=== PATIENT | female | born 1965 | race Hispanic/Latino ===

== ENCOUNTER 2019-12-30 22:17 | Emergency (ER) | payer BC, SELFPAY ==
--- NOTE | ~2019-12-30 | XR_ITS ---
EXAMINATION: XR chest 2V DATE: 12/30/2019 22:49 INDICATION: Shortness of breath, cough and fever TECHNIQUE: PA and lateral views of the chest were obtained. COMPARISON: Chest radiograph dated 01/21/[address] dated 07/28/2018 FINDINGS: Mild hyperexpansion of lungs likely related to mild emphysema better appreciated on prior CT. The jeremie gs remain clear with no focal airspace opacities, pulmonary edema, pleural effusion or pneumothorax. Minimal tenting at the apex of the right hemidiaphragm which on prior CT results from a thin band of discoid atelectasis/scarring the right middle lobe which is indiscernible on the plain radiographs. T he cardiomediastinal silhouette is normal. Chronic minimal to mild anterior wedging T7-T9. Cholecyste ctomy clips in the right upper quadrant. IMPRESSION: 1. Mild emphysema with unchanged mild linear discoid atelectasis/scarring the right middle lobe. No a cute cardiopulmonary disease. Reviewed, dictated and finalized at location A. 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 Mild emphysema with unchanged mild linear discoid atelectasis/scarring the r ight middle lobe. No acute cardiopulmonary disease.
[2019-12-30 22:18] VITALS: BP 124/66; PULSE 114; RESP 16; TEMP 37.9; O2SAT 100
--- NOTE | 2019-12-30 22:32 | ED.URI ---
HPI - URI/Sore Throat General Chief Complaint: Upper Respiratory Infection Stated Complaint: headache/cough/fever Time Seen by Provider: 12/30/19 22:27 Source: patient Mode of arrival: ambulatory Limitations: no limitations History of Present Illness HPI Narrative: The pt is a 54 y/o female who presents to the ED with c/o a dry cough that began 2 days ago. The pt states that her cough is worsening and becoming more painful. Her cough was mildly alleviated with taking Robutussin. The pt reports CP, back pain, myalgia, mild SOB, and a 101F fever, but denies N/V/D, dysuria, sore throat, or rhinorrhea. MD elicited complaint: cough Onset (ago): day(s) (2) Consistency: progressively worsening Relieving factors: other (Robutussin) Associated symptoms: fever, chest pain, shortness of breath (mild) and other (back pain, myalgia) Related Data Home Medications Medication Instructions Recorded Confirmed atorvastatin 12/30/19 insulin glargine [Basaglar KwikPen unit SUBCUT 12/30/19 U-100 Insulin] insulin lispro [Admelog SoloStar unit SUBCUT 12/30/19 U-100 Insulin] Allergies Allergy/AdvReac Type Severity Reaction Status Date / Time No Known Allergies Allergy Verified 12/30/19 22:42 Review of Systems Review of Systems: Narrative: Constitutional: Positive for fever. HENT: Negative for sore throat or rhinorrhea. Respiratory: Positive for dry cough and mild shortness of breath. Cardiovascular: Postive for chest pain. Gastrointestinal: Negative for nausea, vomiting,and diarrhea. Genitourinary: Negative for dysuria. Musculoskeletal: Positive for back pain and myalgia. All systems reviewed & are unremarkable except as noted in HPI and below PMFSH Past Medical History Medical History (Updated 12/31/19 @ 00:08 by Robyn Burnett MD) Diabetes Hyperlipidemia Surgical History Surgical History (Updated 12/30/19 @ 22:43 by Amanda Feliciano) Hx of cholecystectomy Hx of tubal ligation Social History Social History (Updated 12/30/19 @ 22:43 by Amanda Feliciano) Smoking packs per day: 0.5 Smoking cigarettes per day: 10.0 Smoking status: Current every day smoker Tobacco type: cigarettes Gender identity (if verbalized by the patient): Female Exam Const: General: no acute distress and well developed Orientation/consciousness: oriented to person, oriented to place, oriented to time and patient oriented x3 HENMT: Head: normocephalic Ears: external ears normal General nose exam: Normal external nose present Eyes: General: appearance normal, both eyes and all related structures Conjunctivae: conjunctivae normal Neck: Neck: normal visual inspection and full ROM Chest: Chest palpation & inspection: normal inspection of the chest and no tenderness Resp: Effort & Inspection: normal respiratory effort Auscultation: clear to auscultation bilaterally Cardio: Rate: tachycardic Rhythm: regular rhythm GI: GI Palp: No abdominal tenderness and Yes Soft to palpation Skin: General skin exam: normal color and turgor normal Neuro: General: oriented to person, oriented to place, oriented to time and patient oriented x3 Cognition (Neuro): normal cognition Extrem: General: normal to inspection, full ROM and no pedal edema Psych: Appearance: grossly normal Mental Status: mental status grossly normal Affect: normal affect Course Vital Signs Vital signs: Vital Signs Temperature 37.9 C H 12/30/19 22:18 Pulse Rate 114 H 12/30/19 22:18 Respiratory Rate 16 12/30/19 22:18 Blood Pressure 124/66 12/30/19 22:18 Pulse Oximetry 100 12/30/19 22:18 Temperature 37.9 C H 12/30/19 22:18 Pulse Rate 114 H 12/30/19 22:18 Respiratory Rate 16 12/30/19 22:18 Blood Pressure 124/66 12/30/19 22:18 Pulse Oximetry 100 12/30/19 22:18 MDM - URI/Sore Throat Lab Data Result diagrams: 12/30/19 23:14 12/30/19 23:14 Labs: Lab Results 12/30/19 12/30/19
[2019-12-30 23:19] LABS: Basophils Percent Auto 0.3 % (0.2-1.2); Eosinophils Percent Auto 0.2 % (0-4.4); Hematocrit 39.4 % (37.0-47.0); Hemoglobin 12.9 g/dL (12.0-15.0); Immature Granulocyte Absolute 0.03 K/mm3 (0.00-0.031); Immature Granulocyte Percent A 0.5 % (0-0.5); Lymphocytes Absolute Auto 0.98 K/mm3 (0.9-3.2); Lymphocytes Percent Auto 16.7 % (18.3-44.2); Mean Corpuscular HGB Conc 32.7 g/dl (32-36); Mean Corpuscular Hemoglobin 26.4 pg (26-34); Mean Corpuscular Volume 80.7 fl (80-100); Mean Platelet Volume 9.5 fl (7.4-10.4); Monocytes Absolute Auto 0.3 K/mm3 (0.1-0.6); Monocytes Percent Auto 5.3 % (2.6-8.5); Neutrophils Absolute Auto 4.5 K/mm3 (1.3-6.7); Platelet Count Result 217 k/mm3 (150-375); Red Blood Count 4.88 M/mm3 (4.2-5.4); Red Cell Distribution Width 14.6 % (11.5-14.5); White Blood Count 5.9 K/mm3 (4.5-10.0)
[2019-12-30 23:40] LABS: Alanine Aminotransferase 31 U/L (4-35); Albumin Level 4.3 g/dL (3.5-5.1); Alkaline Phosphatase 136 U/L (38-126); Aspartate Amino Transferase 27 U/L (14-36); Bilirubin,Total 0.3 mg/dL (0.2-1.3); Blood Urea Nitrogen 8 mg/dL (7-17); Calcium 8.8 mg/dL (8.4-10.2); Carbon Dioxide 24 mmol/L (22-30); Chloride 99 mmol/L (98-107); Estimated CRCL calculation 52 ml/min; Estimated Glomerular Filt Rate > 60; Glucose 174 mg/dL (65-105); Potassium 3.9 mmol/L (3.4-5.0); Sodium 136 mmol/L (137-145)
[2019-12-30 23:41] LABS: Lactic Acid Reflex 0.8 mmol/L (0.7-2.1)
[2019-12-30 23:44] LABS: Add Urine Microscopic? YES; Appearance Urine Clear (Clear); Bilirubin Urine Negative (Negative); Blood Urine 1+ (Negative); Color Urine Straw (Yellow); Glucose Urine UA Negative (Negative); Ketones Urine Negative (Negative); Leukocyte Esterase Ur Negative LEU/UL (Negative); Nitrate Urine Negative (Negative); Protein Urine Negative (Negative); RBC Urine 0-2 /hpf (0-2); Squamous Epithelial Cell Urine Few /hpf (Few); Urobilinogen Urine Negative mg/dL (<2.0); WBC Urine 0-3 /hpf
[2019-12-31] MEDS: OSELTAMIVIR PHOSPHATE 75 MG CAP PO (00:09)
[2019-12-31] MEDS: ACETAMINOPHEN 325 MG TABLET 650 MG PO (00:10)
[2019-12-31 00:12] VITALS: BP 110/63; PULSE 98; RESP 21; O2SAT 98
== END 2019-12-31 00:20 | disposition home or self-care (01) ==
PROVIDERS: Emergency Provider Emergency Medicine; PCP Family Medicine
DX: J10.1 Influenza due to other identified influenza virus with other respiratory manifestations (principal); E78.5 Hyperlipidemia, unspecified; E11.9 Type 2 diabetes mellitus without complications; F17.210 Nicotine dependence, cigarettes, uncomplicated; J43.9 Emphysema, unspecified; Z79.4 Long term (current) use of insulin
CPT/HCPCS: 36415; 71046; 80053; 81001; 83605; 85025; 87804; 99283; A9270

== ENCOUNTER 2020-08-13 10:30 | Outpatient (CLI) | payer BC, SELFPAY ==
--- NOTE | ~2020-08-13 | US_ITS ---
EXAMINATION: US pelvic complete w TV DATE: 08/13/2020 11:25 INDICATION: Pelvic pain. TECHNIQUE: Multiple transabdominal and transvaginal sonographic images of the pelvis were obtained. COMPARISON: CT abdomen and pelvis 01/17/2019 FINDINGS: TRANSABDOMINAL ULTRASOUND: The uterus measures 8.3 x 2.4 x 4.3 cm. There is no free fluid in the pelvis. TRANSVAGINAL ULTRASOUND: The endometrial complex measures 7 mm in thickness. The right ovary is not visualized. The left ovary measures 2.5 x 1.3 x 1.2 cm. IMPRESSION: 1. Thickened endometrial complex. The differential diagnosis includes endometrial hyperplasia, polyp, and carcinoma. Biopsy is recommended. Reviewed, dictated and finalized at location A. IMPRESSION: 1. Thickened endometrial complex. The differential diagnosis includes endometri al hyperplasia, polyp, and carcinoma. Biopsy is recommended.
--- NOTE | ~2020-08-13 | XR_ITS ---
EXAMINATION: XR thoracic spine 3V DATE: 08/13/2020 10:51 INDICATION: Back pain TECHNIQUE: AP, lateral and lateral swimmer's views of the thoracic spine were obtained. COMPARISON: 01/21/2019 FINDINGS: There is no fracture. Bone alignment is normal. Mild chronic anterior wedging is seen in th e midthoracic spine, likely physiologic. There is mild loss of intervertebral disc space height in th e midthoracic spine. Cholecystectomy clips are noted in the right upper quadrant. Small degenerative osteophytes project from the anterior endplates of multiple vertebral bodies. IMPRESSION: 1. Mild thoracic spondylosis without acute findings or significant interval change. Reviewed, dictated and finalized at location A. IMPRESSION: 1. Mild thoracic spondylosis without acute findings or significant interval james jordy.
== END 2020-08-13 10:31 | disposition home or self-care (01) ==
LOC: ANHIMG 10:39
PROVIDERS: PCP Family Medicine; Visit Provider Family Medicine
DX: R10.2 Pelvic and perineal pain (principal); R93.89 Abnormal findings on diagnostic imaging of other specified body structures
CPT/HCPCS: 72072; 76830; 76856

== ENCOUNTER 2020-08-29 12:48 | Outpatient (CLI) | payer BC, SELFPAY ==
--- NOTE | ~2020-08-29 | MM_ITS ---
EXAMINATION: MM screening adama BI w gavin HISTORY: Screening mammogram TECHNIQUE: Craniocaudal and mediolateral oblique 3-D tomosynthesis images were obtained and synthetic 2-D images were generated. CAD analysis was submitted and interpreted. COMPARISON: 01/21/2019, 09/01/2017, 08/19/2016 bilateral digital screening mammogram examinations BREAST PARENCHYMAL COMPOSITION: The breasts are heterogeneously dense, which may obscure small masses . FINDINGS: There is no evidence of suspicious mass, calcification, or architectural distortion to sugg est malignancy in either breast. There has been no suspicious interval change. IMPRESSION: 1. No mammographic evidence of malignancy. 2. Recommend routine screening mammography in one year. BI-RADS Category 1: Negative Reviewed, dictated and finalized at location A.
== END 2020-08-29 12:49 | disposition home or self-care (01) ==
LOC: ANHIMG 12:49
PROVIDERS: PCP Family Medicine; Visit Provider Family Medicine
DX: Z12.31 Encounter for screening mammogram for malignant neoplasm of breast (principal)
CPT/HCPCS: 77063; 77067

== ENCOUNTER 2021-10-04 14:10 | Outpatient (CLI) | payer BC, SELFPAY ==
--- NOTE | ~2021-10-04 | MM_ITS ---
EXAMINATION: MM screening adama BI w gavin HISTORY: Screening mammogram TECHNIQUE: Craniocaudal and mediolateral oblique 3-D tomosynthesis images were obtained and synthetic 2-D images were generated. CAD analysis was submitted and interpreted. COMPARISON: 08/29/2020, 01/21/2019, 09/01/2017 bilateral screening mammogram examinations BREAST PARENCHYMAL COMPOSITION: The breasts are heterogeneously dense, which may obscure small masses . FINDINGS: There is no evidence of suspicious mass, calcification, or architectural distortion to sugg est malignancy in either breast. There has been no suspicious interval change. IMPRESSION: 1. No mammographic evidence of malignancy. 2. Recommend routine screening mammography in one year. BI-RADS Category 1: Negative Reviewed, dictated and finalized at location A. 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
== END 2021-10-04 14:11 | disposition home or self-care (01) ==
LOC: ANHIMG 14:13
PROVIDERS: PCP Family Medicine; Visit Provider Family Medicine
DX: Z12.31 Encounter for screening mammogram for malignant neoplasm of breast (principal)
CPT/HCPCS: 77063; 77067

== ENCOUNTER 2021-10-29 13:04 | Emergency (ER) | payer BC, SELFPAY ==
[2021-10-29 13:14] VITALS: BP 93/59; PULSE 88; RESP 16; TEMP 36.3; O2SAT 99
--- NOTE | 2021-10-29 13:39 | ED.URI ---
HPI - URI/Sore Throat General Chief Complaint: Upper Respiratory Infection Stated Complaint: COLD SX Time Seen by Provider: 10/29/21 13:39 Source: patient, RN notes reviewed and old records reviewed Mode of arrival: ambulatory Limitations: no limitations History of Present Illness HPI Narrative: 56-year-old female presents to the [facility] with complaints of cold symptoms. Patient states she started with a runny nose yesterday. States that her daughter tested positive for Covid last week. At that time her Covid test was negative. Patient denies any fevers. Denies any cough, chest pain or shortness of breath. Patient denies abdominal pain, nausea, vomiting or diarrhea. No ear pain or throat pain. MD elicited complaint: rhinorrhea Related Data Home Medications Medication Instructions Recorded Confirmed atorvastatin 12/30/19 insulin glargine [Basaglar KwikPen unit SUBCUT 12/30/19 U-100 Insulin] insulin lispro [Admelog SoloStar unit SUBCUT 12/30/19 U-100 Insulin] acetaminophen 500 mg tablet 500 mg PO Q6H PRN 10/08/21 aspirin 81 mg tablet,delayed 81 mg PO DAILY 10/08/21 release lisinopril 5 mg tablet 5 mg PO DAILY 10/08/21 fluticasone propionate INTRANASAL 10/29/21 paroxetine HCl mg PO 10/29/21 Allergies Allergy/AdvReac Type Severity Reaction Status Date / Time No Known Allergies Allergy Verified 12/30/19 22:42 Review of Systems Review of Systems: All systems reviewed & are unremarkable except as noted in HPI and below Constitutional: Constitutional: Reports no additional constitutional complaints, Denies chills and Denies fever(s) Eyes: Eyes: Reports no additional eye complaints ENT: Reports as per HPI Comments: Rhinorrhea Cardiovascular: Cardiovascular: Reports no additional cardiovascular complaints and Denies chest pain Respiratory: Respiratory: Reports no additional respiratory complaints, Denies cough and Denies dyspnea Gastrointestinal: Gastrointestinal: Reports no additional gastrointestinal complaints, Denies abdominal pain, Denies nausea and Denies vomiting Musculoskeletal: Musculoskeletal: Reports no additional musculoskeletal complaints Integumentary/Breasts: Skin/Breast: Reports system reviewed and no additional complaints, except as docu Neurologic: Reports system reviewed and no additional complaints, except as documented Psychiatric: Psychiatric: Reports no additional psychiatric complaints Allergic/Immunologic: Allergic/Immunologic: Reports no additional allergic/immunologic complaints PMFSH Past Medical History Medical History Diabetes Hyperlipidemia Surgical History Surgical History Hx of cholecystectomy Hx of tubal ligation Family History Family History Sibling Breast cancer Diabetes mellitus Thyroid disorder Father Diabetes mellitus Hypertension Depression Mother Diabetes mellitus Hypertension Social History Social History Smoking packs per day: 0.5 Smoking cigarettes per day: 10.0 Smoking status: Current every day smoker Tobacco type: cigarettes Gender identity (if verbalized by the patient): Female Comments At the time of my signature, I reviewed and agree with the nursing past medical, surgical, social, and family history. There is no relevant family history pertinent to the patient complaint. Exam Const: General: healthy appearing, no acute distress and alert Nutritional Appearance: well nourished Orientation/consciousness: patient oriented x3 Limitations: no limitations HENMT: Head: normal to inspection Ears: external ears normal, TM's normal bilaterally and EAC's normal Eyes: Conjunctivae: conjunctivae normal Pupils: Equal, round and reactive pupils present Neck: Neck: normal visual inspection, no lymphadenopathy and no m
== END 2021-10-29 13:55 | disposition home or self-care (01) ==
PROVIDERS: Emergency Provider Nurse Practitioner; PCP Family Medicine
DX: U07.1 COVID-19 (principal); E11.9 Type 2 diabetes mellitus without complications; I10 Essential (primary) hypertension; F17.210 Nicotine dependence, cigarettes, uncomplicated
CPT/HCPCS: 99213; G0463

== ENCOUNTER → 2021-10-31 02:44 | Outpatient (CLI) | payer BC, SELFPAY ==
[2021-10-31 20:34] LABS: SARS-CoV-2 RNA PCR Positive
== END ==
PROVIDERS: PCP Family Medicine; Visit Provider Nurse Practitioner
DX: U07.1 COVID-19 (principal)
CPT/HCPCS: C9803; U0003; U0005

== ENCOUNTER 2021-11-21 14:30 | Outpatient (RCR) | payer BC, SELFPAY ==
--- NOTE | 2021-10-21 15:18 | PTOPEVAL ---
PHYSICAL THERAPY EVALUATION Thank you for referring Dara Marti to [facility].? Dara was evaluated for the dx of low back pain/LE radiculopathy. The patient is scheduled to be seen for therapy?2 x/week for 4 weeks. Please review, sign, date and return this plan of care JOHN. I agree with and certify that the following plan of care is medically necessary. Referring Physician Date Attending Provider: Bela Gore, *PT Outpatient Evaluation Start: 10/21/21 13:56 Freq: Status: Active Protocol: Document 10/21/21 13:57 MLV (Rec: 10/21/21 15:02 MLV [id number]) Therapy Assessment Status Assessment Status Assessment Status Evaluation Evaluation Information Problem Diagnosis low back with radiculopathy Onset 1 year Cause none Additional Evaluation Detail The patient began having low back pain starting about 1 year ago. The patient has no injury and the pain is worse when sitting or laying. The patient wakes 2-3x a night due to to pain. The pain will radiate to her right leg and up her back at times. 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 The patient walks 2 miles a day and feels better when she walks. Subjective Information Patient was completely pain Query Text:As Reported By Patient/ free until 1 year ago Family Diagnostic Tests X-Rays For This Problem Yes: degenerative disc Previous Treatments Previous Treatments For This Problem none Pain Assessment Timing of Pain Assessment Timing of Pain Assessment Assessment Pain Scale Pain Scale Used Numeric (1 - 10) Self Report Pain Assessment Right Leg(s) Reported Pain Level 0 Pain Frequency Acute,Chronic Greatest Pain Intensity 10 Pain Aggravating Factors Sitting Other Pain Aggravating Factors sidelying, prone, supine Pain Behaviors Limping Lower Back Reported Pain Level 5 Pain Description Pinching,Pressure Pain Frequency Acute,Chronic Greatest Pain Intensity 10 Pain Aggravating Factors Sitting,Supine Additional Pain Comments Oswestry score is 44% for handicap due to pain Pain Score Pain Score 5,0: Self Report Interventions Used Interventions Used By Clinicians Education,Exercise,Heat,
--- NOTE | 2021-10-29 09:52 | PCPTNOTE ---
Patient called & cancelled scheduled appointment this date due to COVID exposure.
--- NOTE | 2021-10-31 15:45 | PCPTNOTE ---
Addendum entered by Tanja Biggs, WINE SPECIALIST 10/31/21 16:00: Patient called back to tell us she had called earlier this week and told the supervisor front staff she needed to cancel 10/29 and 10/31 appointment. Patient is therefore confirmed cancel according to office staff. Patient is call back and tell us is she can make her 11/05/21 appointment pending covid testing. Original Note: Patient no showed for appointment this date. Patient did not answer when called but voicemail was left to call back clinic.
--- NOTE | 2021-11-05 07:16 | PCPTNOTE ---
Patient called & cancelled scheduled appointment for Nov 05 and due to COVID +.
--- NOTE | 2021-11-21 16:28 | PTOPEVAL ---
Physical Therapy Discharge Summary Thank you for referring Dara Marti to [facility].? Dara has received 5 therapy visits to address her back pain. As result of skilled therapy services she demonstrates improved function, improved symptoms, improved trunk motion and strength. She has reached maximal benefit of skilled therapy services at this time. Will DC skilled PT services at this time. Please review, sign, date and return this discharge summary JOHN. I agree with and certify that the following plan of care is medically necessary. Referring Physician Date Attending Provider: Bela Gore, Diagnosis low back with radiculopathy Onset 1 year Cause none Subjective Information She reports improve pain since Query Text:As Reported By Patient/ starting therapy. Denies Family radiating pain into her leg. She wakes 2x/night due to pain, sleeping ~ 3 hr intervals. 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 She denies any limitations with her walking program. She is performing her HEP consistently. Pain Assessment Right Leg(s) Reported Pain Level 2 Lowest Pain Intensity 0 Greatest Pain Intensity 6 Pain Aggravating Factors Prolonged Position Lower Back Reported Pain Level 2 Lowest Pain Intensity 0 Greatest Pain Intensity 6 Cervical and Lumbar ROM Lumbar ROM Lumbar Flexion Active Ankle:Hands to: Lateral Flexion lateral knee joint line renny:Active Hands to: Lumbar ROM WNL Lumbar Comments no pain, but muscle stretching 100%trunk rot left and 75% to right Cervical and Lumbar Muscle Testing Lumbar Strength Upper Abdominal Strength 4-Good- Lower Abdominal Strength 3 Fair Abdominal Obliques 3+Fair+ Lower Extremity Muscle Strength Testing General Lower Extremity Strength Gross Lower Extremity Strength grossly 5/5 except renny hip abd: 3+/5 Muscle Length Testing Muscle Length Testing Two-Joint Hip Flexor Shortened Muscles Short (R) Iliopsoas,Short (L) Iliopsoas Piriformis w/Hip Flexion >90 Degrees (R) Moderate Tightness,(L) Moderate Tightness Belia's Test Hip Muscle Length (R) WFL,(L) WFL Right Prone Hip Internal Rotator Length 45 (degrees) Left Prone Hip Internal Rotator Length ( 45 degrees) Right Prone Hip External Rotator Length 40 (degrees) Left Prone Hip External Rotator Length ( 40 degrees)
== END 2021-11-22 09:07 | disposition home or self-care (01) ==
LOC: ANHPT 14:30
PROVIDERS: PCP Family Medicine; Visit Provider Internal Medicine Endocrinology, Diabetes & Metabolism
DX: M51.36 Other intervertebral disc degeneration, lumbar region (principal)
CPT/HCPCS: 97012; 97110; 97162

== ENCOUNTER 2022-02-20 14:10 | Outpatient (CLI) | payer BC, SELFPAY ==
--- NOTE | ~2022-02-20 | XR_ITS ---
EXAMINATION: XR foot RT standing 2V DATE: 02/20/2022 14:46 INDICATION: Other specified abnormal immunologic findings TECHNIQUE: 1. Dorsoplantar and lateral views of the left foot were obtained. 2. Dorsoplantar and lateral views of the right foot were obtained. COMPARISON: None. FINDINGS: Normal alignment at the bilateral feet. No fracture. Joint spaces are normal with no erosions or oste ophytosis. Soft tissues are unremarkable. IMPRESSION: 1. Normal bilateral foot radiographs. Reviewed, dictated and finalized at location A.
--- NOTE | ~2022-02-20 | XR_ITS ---
EXAMINATION: HAND-EDWIN ARTHRITIS 3+VIEWS DATE: 02/20/2022 14:46 INDICATION: Other specified abnormal immunologic findings TECHNIQUE: Posteroanterior, lateral, and oblique views of the left and of the right hands as well as a ballcatchers view of both hands were obtained. COMPARISON: None. FINDINGS: The right second distal phalanx is absent and there is relative shortening of the right second middle phalanx. Otherwise normal alignment at the bilateral hands and wrists. No fractures. Joint spaces ar e relatively preserved. No erosions to suggest inflammatory arthritis. Soft tissues are unremarkable. IMPRESSION: 1. Absent right second distal phalanx which could be either developmental or sequela of old trauma or surgery. Otherwise unremarkable bilateral hand radiographs with normal joint spaces. Reviewed, dictated and finalized at location A. IMPRESSION: 1. Absent right second distal phalanx which could be either developmental or se quela of old trauma or surgery. Otherwise unremarkable bilateral hand radiograp hs with normal joint spaces.
--- NOTE | ~2022-02-20 | XR_ITS ---
EXAMINATION: XR knee LT min 4V DATE: 02/20/2022 14:46 INDICATION: Other specified abnormal immunological findings. TECHNIQUE: 4 views of left knee including weightbearing views were obtained. COMPARISON: None. FINDINGS: Bone alignment is normal. No fracture. There is mild tricompartmental osteoarthritis charac terized by tiny osteophytes. No joint space narrowing. No knee joint effusion. IMPRESSION: 1. Mild left knee osteoarthritis. Reviewed, dictated and finalized at location B.
--- NOTE | ~2022-02-20 | XR_ITS ---
EXAMINATION: XR knee RT min 4V DATE: 02/20/2022 14:46 INDICATION: Other specified abnormal immunological findings. TECHNIQUE: 4 views of right knee including weightbearing views were obtained. COMPARISON: None. FINDINGS: Bone alignment is normal. No fracture. There is mild osteoarthritis of lateral and patellof emoral compartments characterized by tiny osteophytes. No joint space narrowing. No knee joint effusi on. IMPRESSION: 1. Mild right knee osteoarthritis. Reviewed, dictated and finalized at location B.
--- NOTE | ~2022-02-20 | XR_ITS ---
EXAMINATION: XR foot LT standing 2V DATE: 02/20/2022 14:46 INDICATION: Other specified abnormal immunologic findings TECHNIQUE: 1. Dorsoplantar and lateral views of the left foot were obtained. 2. Dorsoplantar and lateral views of the right foot were obtained. COMPARISON: None. FINDINGS: Normal alignment at the bilateral feet. No fracture. Joint spaces are normal with no erosions or oste ophytosis. Soft tissues are unremarkable. IMPRESSION: 1. Normal bilateral foot radiographs. Reviewed, dictated and finalized at location A.
--- NOTE | ~2022-02-20 | XR_ITS ---
EXAMINATION: XR sacroiliac joints min 3V DATE: 02/20/2022 14:46 INDICATION: Other specified abnormal immunological findings. TECHNIQUE: 3 views of the sacroiliac joints were obtained. COMPARISON: None. FINDINGS: Bone alignment is normal. No fracture. The sacroiliac joints are normal. Tubal ligation cli ps are noted. IMPRESSION: 1. Normal sacroiliac joints. Reviewed, dictated and finalized at location B.
[2022-02-20 15:20] LABS: Basophils Absolute Auto 0.1 K/mm3 (0.0-0.1); Basophils Percent Auto 0.6 % (0.2-1.2); Eosinophils Absolute Auto 0.4 K/mm3 (0-0.3); Eosinophils Percent Auto 3.7 % (0-4.4); Hematocrit 40.9 % (37.0-47.0); Hemoglobin 13.4 g/dL (12.0-15.0); Immature Granulocyte Absolute 0.03 K/mm3 (0.00-0.031); Immature Granulocyte Percent A 0.3 % (0-0.5); Lymphocytes Absolute Auto 3.65 K/mm3 (0.9-3.2); Lymphocytes Percent Auto 30.6 % (18.3-44.2); Mean Corpuscular HGB Conc 32.8 g/dl (32-36); Mean Corpuscular Hemoglobin 27.3 pg (26-34); Mean Corpuscular Volume 83.3 fl (80-100); Monocytes Absolute Auto 0.4 K/mm3 (0.1-0.6); Monocytes Percent Auto 3.7 % (2.6-8.5); Neutrophils Absolute Auto 7.3 K/mm3 (1.3-6.7); Neutrophils Percent Auto 61.1 % (45.5-73.1); Platelet Count Result 295 k/mm3 (150-375); Red Blood Count 4.91 M/mm3 (4.2-5.4); Red Cell Distribution Width 15.6 % (11.5-14.5); White Blood Count 11.9 K/mm3 (4.5-10.0)
[2022-02-20 15:30] LABS: Alanine Aminotransferase 29 U/L (4-35); Albumin Level 4.6 g/dL (3.5-5.1); Alkaline Phosphatase 104 U/L (38-126); Anion Gap 8 mmol/L (8-16); Aspartate Amino Transferase 34 U/L (14-36); Bilirubin,Total 0.4 mg/dL (0.2-1.3); Blood Urea Nitrogen 13 mg/dL (7-17); CRP < 0.5 mg/dL (<1.0); Calcium 9.1 mg/dL (8.4-10.2); Carbon Dioxide 25 mmol/L (22-30); Chloride 104 mmol/L (98-107); Estimated Glomerular Filt Rate > 60; Glucose 97 mg/dL (65-110); Potassium 3.7 mmol/L (3.4-5.0); Sodium 137 mmol/L (137-145)
[2022-02-20 15:34] LABS: Complement C3 110 mg/dL (88-165); Rheumatoid Factor < 8.6 IU/ML (<12)
[2022-02-20 15:52] LABS: Erythrocyte Sedimentation Rate 13 mm/hr (0-20)
[2022-02-23 20:14] LABS: SM Antibody <1.0; SM/RNP Antibody <1.0; SS-A <1.0; SS-B <1.0
[2022-02-24 22:25] LABS: Lupus dRVVT 1:1 Mix Interpreta Not Indicated; Lupus dRVVT Screen 31 sec (<=45); PTT-LA Screen 38 sec (<=40)
[2022-02-26 22:43] LABS: Anti Cyclic Citrullinated Pept <16 Units (<20)
== END 2022-02-20 14:11 | disposition home or self-care (01) ==
PROVIDERS: PCP Family Medicine; Visit Provider Internal Medicine
DX: R76.8 Other specified abnormal immunological findings in serum (principal); M19.90 Unspecified osteoarthritis, unspecified site; M17.0 Bilateral primary osteoarthritis of knee
CPT/HCPCS: 36415; 72202; 73130; 73564; 73620; 80053; 85025; 85613; 85652; 85730; 86140; 86160; 86200; 86225; 86235; 86430

== ENCOUNTER 2022-12-02 16:02 | Outpatient (CLI) | payer OTHER, SELFPAY ==
--- NOTE | ~2022-12-02 | MM_ITS ---
EXAMINATION: MM screening adama BI w gavin HISTORY: Screening TECHNIQUE: Craniocaudal and mediolateral oblique 3-D tomosynthesis images were obtained and synthetic 2-D images were generated. CAD analysis was submitted and interpreted. COMPARISON: Comparison to multiple prior studies sequentially, with oldest reviewed study dated 07/16. BREAST PARENCHYMAL COMPOSITION: The breasts are heterogeneously dense, which may obscure small masses . FINDINGS: There is no evidence of suspicious mass, calcification, or architectural distortion to sugg est malignancy in either breast. There has been no suspicious interval change. IMPRESSION: 1. No mammographic evidence of malignancy. 2. Recommend routine screening mammography in one year. BI-RADS Category 1: Negative Reviewed, dictated and finalized at location A. 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
== END 2022-12-02 16:03 | disposition home or self-care (01) ==
PROVIDERS: PCP Family Medicine; Visit Provider Family Medicine
DX: Z12.31 Encounter for screening mammogram for malignant neoplasm of breast (principal)
CPT/HCPCS: 77063; 77067

== ENCOUNTER 2023-03-02 22:43 | Emergency (ER) | payer OTHER, SELFPAY ==
[2023-03-02] VITALS (10 sets, daily range): BP systolic 115–141; BP diastolic 69–95; PULSE 65–80; RESP 13–24; TEMP 36.6; O2SAT 99
[2023-03-02 22:48] LABS: Glucose Point of Care 294 mg/dl (65-105)
[2023-03-02 22:53] LABS: Basophils Absolute Auto 0.1 K/mm3 (0.0-0.1); Basophils Percent Auto 0.6 % (0.2-1.2); Eosinophils Absolute Auto 0.2 K/mm3 (0-0.3); Eosinophils Percent Auto 1.6 % (0-4.4); Hematocrit 39.8 % (37.0-47.0); Hemoglobin 13.4 g/dL (12.0-15.0); Immature Granulocyte Absolute 0.01 K/mm3 (0.00-0.031); Immature Granulocyte Percent A 0.1 % (0-0.5); Lymphocytes Percent Auto 37.6 % (18.3-44.2); Mean Corpuscular HGB Conc 33.7 g/dl (32-36); Mean Corpuscular Hemoglobin 27.2 pg (26-34); Mean Corpuscular Volume 80.9 fl (80-100); Mean Platelet Volume 9.2 fl (7.4-10.4); Monocytes Absolute Auto 0.4 K/mm3 (0.1-0.6); Monocytes Percent Auto 3.8 % (2.6-8.5); Neutrophils Absolute Auto 5.2 K/mm3 (1.3-6.7); Neutrophils Percent Auto 56.3 % (45.5-73.1); Platelet Count Result 254 k/mm3 (150-375); Red Blood Count 4.92 M/mm3 (4.2-5.4); Red Cell Distribution Width 14.9 % (11.5-14.5); White Blood Count 9.3 K/mm3 (4.5-10.0)
[2023-03-02 23:02] LABS: Alanine Aminotransferase 33 U/L (6-35); Albumin Level 4.5 g/dL (3.5-5.1); Alkaline Phosphatase 196 U/L (38-126); Anion Gap 6 mmol/L (8-16); Aspartate Amino Transferase 25 U/L (14-36); Bilirubin,Total 0.5 mg/dL (0.2-1.3); Blood Urea Nitrogen 9 mg/dL (7-17); Calcium 9.2 mg/dL (8.4-10.2); Carbon Dioxide 26 mmol/L (22-30); Chloride 103 mmol/L (98-107); Estimated CRCL calculation 76 ml/min; Estimated Glomerular Filt Rate > 60; Glucose 303 mg/dL (65-110); Sodium 135 mmol/L (137-145)
[2023-03-02 23:08] LABS: Glucose Point of Care 281 mg/dl (65-105)
[2023-03-02 23:39] LABS: Glucose Point of Care 247 mg/dl (65-105)
[2023-03-03] VITALS (18 sets, daily range): BP systolic 109–143; BP diastolic 68–101; PULSE 64–77; RESP 12–20; TEMP 36.6–37.2; O2SAT 99
--- NOTE | 2023-03-03 00:43 | PC.NURSE ---
Food given to pt per Dr. Huddleston. pt eating sandwich, apple juice, crackers, and jello.
[2023-03-03 00:44] LABS: Glucose Point of Care 149 mg/dl (65-105)
[2023-03-03 01:59] LABS: Glucose Point of Care 225 mg/dl (65-105)
--- NOTE | 2023-03-03 02:58 | ED.GENADULT ---
HPI - General Adult General Chief complaint: Overdose Stated complaint: Accidental overdose, insulin Time Seen by Provider: 03/02/23 23:51 History of Present Illness HPI narrative: This is a 57-year-old Maltese-speaking woman presenting ED with chief complaint of overdose. the patient took 4 units of lispro and then ate dinner tonight. She then accidentally took a mother 12 units of lispro instead of her Lantus. She then called a heel shaper and was brought to the hospital immediately. She denies any other complaints this time. Related Data Home Medications Medication Instructions Recorded Confirmed atorvastatin 40 mg tablet 12/30/19 insulin glargine 100 unit/mL (3 unit subcut 12/30/19 mL) subcutaneous pen (Basaglar KwikPen U-100 Insulin) insulin lispro 100 unit/mL unit subcut 12/30/19 subcutaneous pen (Admelog SoloStar U-100 Insulin lispro) acetaminophen 500 mg tablet 500 mg PO Q6H PRN 10/08/21 (Tylenol Extra Strength) aspirin 81 mg tablet,delayed 81 mg PO DAILY 10/08/21 release (Adult Aspirin Regimen) lisinopril 5 mg tablet 5 mg PO DAILY 10/08/21 fluticasone propionate 50 intranasal 10/29/21 mcg/actuation nasal spray,suspension paroxetine HCl 10 mg tablet mg PO 10/29/21 bupropion HCl 150 mg 24 hr tablet, 150 mg PO QAM 02/20/22 extended release Allergies Allergy/AdvReac Type Severity Reaction Status Date / Time No Known Allergies Allergy Verified 02/20/22 13:18 [facility] Past Medical History Medical History (Updated 03/03/23 @ 03:02 by Hardeep Huddleston MD) JOSE positive Diabetes Hyperlipidemia Inflammatory arthritis Neck pain Rash and nonspecific skin eruption Surgical History Surgical History Hx of cholecystectomy Hx of tubal ligation Family History Family History Sibling Breast cancer Diabetes mellitus Thyroid disorder Father Diabetes mellitus Hypertension Depression Mother Diabetes mellitus Hypertension Social History Social History Smoking packs per day: 0.5 Smoking cigarettes per day: 10.0 Smoking status: Current every day smoker Tobacco type: cigarettes Gender identity (if verbalized by the patient): Female Exam Narrative: APPEARANCE: No apparent distress. Resting comfortably in bed Head: atraumatic. EYES: EOMI, NOSE: Atraumatic NECK: Trachea midline RESPIRATORY: No increased rate of breathing CARDIOVASCULAR: RRR, ABDOMINAL: Non-distended MUSCULOSKELETAl: No obvious deformities NEURO: Alert. Moving 4/4 extremities SKIN:: Warm, dry. Normal color PSYCHIATRIC: Normal affect Course Vital Signs Vital signs: Vital Signs Temperature 98 F 03/02/23 22:40 Pulse Rate 77 03/02/23 22:40 Respiratory Rate 18 03/02/23 22:40 Blood Pressure 141/79 H 03/02/23 22:40 Pulse Oximetry 99 03/02/23 22:40 Oxygen Delivery Room Air 03/02/23 22:40 Temperature 98.9 F 03/03/23 01:46 Pulse Rate 71 03/03/23 01:46 Respiratory Rate 12 03/03/23 01:46 Blood Pressure 117/78 03/03/23 01:46 Pulse Oximetry 99 03/03/23 01:59 Oxygen Delivery Room Air 03/02/23 22:40 Medical Decision Making MDM Narrative Medical decision making narrative: -Presentation: 57-year-old female who accidentally took her short-acting insulin set of her long-acting insulin. She has not eaten since she took the 12 units. Patient will be given food and q.1 hour glucose checks will be obtained. -DDX includes but is not limited to: Hypoglycemia, accidental insulin overdose -Co-morbidities complicating care: 1 diabetes -Social determinants of health: lives at home with her daughter -External Chart Review: none -Hx from independent Sources: EMS -Discussion of Management/Consultants: none -Independent interpretation of studies: glucose was Stable over 4 jody
[2023-03-03 03:09] LABS: Glucose Point of Care 285 mg/dl (65-105)
== END 2023-03-03 03:11 | disposition home or self-care (01) ==
PROVIDERS: Emergency Provider Emergency Medicine; PCP Family Medicine
DX: T38.3X1A Poisoning by insulin and oral hypoglycemic [antidiabetic] drugs, accidental (unintentional), initial encounter (principal); E78.5 Hyperlipidemia, unspecified; E11.9 Type 2 diabetes mellitus without complications; Z90.49 Acquired absence of other specified parts of digestive tract; F17.210 Nicotine dependence, cigarettes, uncomplicated; Z79.82 Long term (current) use of aspirin; Z79.4 Long term (current) use of insulin
CPT/HCPCS: 36415; 80053; 82948; 85025; 99283

== ENCOUNTER 2023-03-03 16:11 | Outpatient (CLI) | payer OTHER, SELFPAY ==
--- NOTE | ~2023-03-03 | XR_ITS ---
Cervical Spine: AP, lateral, open-mouth views Clinical History: Pain Findings: The normal lordotic curve is maintained. Minimal grade 1 retrolisthesis of C6 over C7 noted . There is moderate degenerative disc narrowing at C6-C7. Pre-vertebral soft tissues are unremarkable . Impression: Minimal grade 1 retrolisthesis of C6 over C7. Moderate degenerative disc narrowing at C6-C7. Reviewed, dictated and finalized at [facility]. Impression: Minimal grade 1 retrolisthesis of C6 over C7. Moderate degenerative disc narrowing at C6-C7.
[2023-03-03 16:56] LABS: Hematocrit 40.5 % (37.0-47.0); Hemoglobin 13.3 g/dL (12.0-15.0); Mean Corpuscular HGB Conc 32.8 g/dl (32-36); Mean Corpuscular Hemoglobin 26.9 pg (26-34); Mean Corpuscular Volume 81.8 fl (80-100); Platelet Count Result 263 k/mm3 (150-375); Red Blood Count 4.95 M/mm3 (4.2-5.4); Red Cell Distribution Width 15.3 % (11.5-14.5); White Blood Count 10.4 K/mm3 (4.5-10.0)
[2023-03-03 17:09] LABS: Alanine Aminotransferase 33 U/L (6-35); Albumin Level 4.2 g/dL (3.5-5.1); Alkaline Phosphatase 155 U/L (38-126); Anion Gap 4 mmol/L (8-16); Aspartate Amino Transferase 25 U/L (14-36); Bilirubin,Total 0.4 mg/dL (0.2-1.3); Blood Urea Nitrogen 10 mg/dL (7-17); CRP < 0.5 mg/dL (<1.0); Calcium 8.9 mg/dL (8.4-10.2); Carbon Dioxide 31 mmol/L (22-30); Chloride 102 mmol/L (98-107); Estimated Glomerular Filt Rate > 60; Glucose 309 mg/dL (65-110); Potassium 3.8 mmol/L (3.4-5.0); Sodium 137 mmol/L (137-145)
[2023-03-03 18:35] LABS: Erythrocyte Sedimentation Rate 12 mm/hr (0-20)
== END 2023-03-03 16:12 | disposition home or self-care (01) ==
PROVIDERS: PCP Family Medicine; Visit Provider Internal Medicine
DX: M19.90 Unspecified osteoarthritis, unspecified site (principal); M54.2 Cervicalgia
CPT/HCPCS: 36415; 72050; 80053; 85027; 85652; 86140

== ENCOUNTER 2024-01-28 16:42 | Outpatient (CLI) | payer OTHER, SELFPAY ==
--- NOTE | ~2024-01-28 | MM_ITS ---
EXAMINATION: MM screening adama BI w gavin HISTORY: Screening mammogram TECHNIQUE: Craniocaudal and mediolateral oblique 3-D tomosynthesis images were obtained and synthetic 2-D images were generated. CAD analysis was submitted and interpreted. COMPARISON: 12/02/2022, 10/04/2021, 08/29/2020 bilateral screening mammogram examinations BREAST PARENCHYMAL COMPOSITION: The breasts are heterogeneously dense, which may obscure small masses . FINDINGS: There is no evidence of suspicious mass, calcification, or architectural distortion to sugg est malignancy in either breast. There has been no suspicious interval change. IMPRESSION: 1. No mammographic evidence of malignancy. 2. Recommend routine screening mammography in one year. BI-RADS Category 1: Negative Reviewed, dictated and finalized at location [facility].
== END 2024-01-28 16:43 | disposition home or self-care (01) ==
LOC: ANHIMG 16:43
PROVIDERS: PCP Family Medicine; Visit Provider Family Medicine
DX: Z12.31 Encounter for screening mammogram for malignant neoplasm of breast (principal)
CPT/HCPCS: 77063; 77067

== ENCOUNTER 2024-04-09 17:49 | Emergency (ER) | payer OTHER, SELFPAY ==
[2024-04-09 17:50] VITALS: BP 110/50; PULSE 60; RESP 16; TEMP 36.2; O2SAT 96
--- NOTE | 2024-04-09 18:13 | ED.EYEPROB ---
HPI - Eye Problem General Chief complaint: Eye Problems Stated complaint: right eye issue Time Seen by Provider: 04/09/24 18:05 History of Present Illness HPI Narrative: Patient is a 58-year-old female with history of diabetes here with right eye pain. She states that 2-3 days ago she felt as though she got something in her eye. She had some itching at that time and had been rubbing her eye. Over the last day she has noted some swelling beneath her right eye over her lower eyelid as well as some pain in that area. She notes the lateral aspect of her vision in her right eye does seem to be a bit blurry but she feels as though she has rubbed that I significantly and may have irritated the eye. She denies any significant drainage from the eye. She continues to have itching in this eye. She denies any pain with extraocular movements or limitation in movement with her eye. Her left eye is unaffected. She does not were contact lenses. She denies any additional symptoms including cough, congestion, runny nose, fever, chills. Related Data Home Medications Medication Instructions Recorded Confirmed atorvastatin 40 mg tablet 12/30/19 02/17/24 acetaminophen 500 mg tablet 500 mg PO Q6H PRN 10/08/21 02/17/24 (Tylenol Extra Strength) aspirin 81 mg tablet,delayed 81 mg PO DAILY 10/08/21 02/17/24 release (Adult Aspirin Regimen) lisinopril 5 mg tablet 5 mg PO DAILY 10/08/21 02/17/24 fluticasone propionate 50 intranasal 10/29/21 02/17/24 mcg/actuation nasal spray,suspension magnesium citrate 100 mg capsule 100 mg PO DAILY 08/04/23 02/09/24 tizanidine 2 mg capsule 2 mg PO TID PRN 08/04/23 02/17/24 insulin glargine 100 unit/mL (3 10 unit subcut QPM 02/17/24 02/17/24 mL) subcutaneous pen (Lantus Solostar U-100 Insulin) insulin lispro 100 unit/mL 3 unit subcut TID 02/17/24 02/17/24 subcutaneous pen (Admelog SoloStar U-100 Insulin lispro) Allergies Allergy/AdvReac Type Severity Reaction Status Date / Time No Known Allergies Allergy Verified 02/17/24 09:56 Review of Systems Review of Systems: All systems reviewed & are unremarkable except as noted in HPI and below PMFSH Past Medical History Medical History (Updated 04/09/24 @ 19:29 by Krystyna Doherty MD) JOSE positive Bilateral hand pain Diabetes Hyperlipidemia Inflammatory arthritis Neck pain Rash and nonspecific skin eruption Surgical History Surgical History Hx of cholecystectomy Hx of tubal ligation Family History Family History Sibling Breast cancer Diabetes mellitus Thyroid disorder Father Diabetes mellitus Hypertension Depression Mother Diabetes mellitus Hypertension Social History Social History Smoking packs per day: 0.5 Smoking cigarettes per day: 10.0 Smoking status: Current every day smoker Tobacco type: cigarettes Alcohol intake: never Substance use: never Substance use type: does not use Do You Feel Safe in your Home?: Yes Lack of Transportation: No Lack of Food: Never True Current Housing: I Have Housing Concerned About Future Housing: No Difficulty Paying Gas/Electric Bills: No Difficulty Paying for Meds: No Currently Unemployed: No Education: Decline to Answer Difficulty w/ Childcare or Family Care: No Living arrangements: with family Occupation/Education: unemployed Gender identity (if verbalized by the patient): Female Sexual Orientation (if Verbalized by the Patient): Straight or Heterosexual Exam Narrative: GENERAL: Well-appearing, well-nourished, and in no acute distress. HEAD: Normocephalic, atraumatic. EYES: PERRLA and EOMI. Patient has mild conjunctival injection on the right side. She has some mild swelling to the lower eyelid on the right side which is tender to touch. No overlying erythema. No li
== END 2024-04-09 19:49 | disposition home or self-care (01) ==
PROVIDERS: Emergency Provider Student in an Organized Health Care Education/Training Program; PCP Family Medicine
DX: H00.012 Hordeolum externum right lower eyelid (principal); F17.210 Nicotine dependence, cigarettes, uncomplicated; E11.9 Type 2 diabetes mellitus without complications; M19.90 Unspecified osteoarthritis, unspecified site; Z79.4 Long term (current) use of insulin
CPT/HCPCS: 99283

== ENCOUNTER 2024-05-19 09:14 | Outpatient (CLI) | payer OTHER, SELFPAY ==
[2024-05-19 10:30] LABS: Alanine Aminotransferase 38 U/L (6-35); Albumin Level 4.2 g/dL (3.5-5.1); Alkaline Phosphatase 109 U/L (38-126); Anion Gap 7 mmol/L (4-12); Aspartate Amino Transferase 32 U/L (14-36); Bilirubin,Total 0.5 mg/dL (0.2-1.3); Blood Urea Nitrogen 10 mg/dL (7-17); Calcium 8.8 mg/dL (8.4-10.2); Carbon Dioxide 24 mmol/L (22-30); Chloride 107 mmol/L (98-107); Cholesterol 111 mg/dL (0-200); Estimated Glomerular Filt Rate > 60; Glucose 123 mg/dL (65-110); HDL Direct 46 mg/dL; Sodium 138 mmol/L (137-145); Triglycerides 48 mg/dL (<150)
[2024-05-19 10:37] LABS: MALB Creatinine Ratio < 8.2 mg/g (0-30); Microalbumin Urine Random < 6.0 mg/L (0-16.7)
[2024-05-19 10:41] LABS: LDL Cholesterol Direct 58 mg/dL
[2024-05-19 10:56] LABS: Free T4 Free Thyroxine 1.31 ng/mL (0.78-2.19)
[2024-05-20 07:59] LABS: C-Peptide 0.99 ng/mL (0.80-3.85)
[2024-05-21 10:53] LABS: Triiodothyronine T3 Free 3.1 pg/mL (2.3-4.2)
[2024-05-23 20:44] LABS: Glutamic acid decarboxylase AA >250 IU/mL (<5)
[2024-05-27 03:22] LABS: Zinc Transporter 8 Antibody <10 U/mL (<15)
[2024-05-30 23:43] LABS: Islet Cell Antibody Screen NEGATIVE (NEGATIVE)
== END 2024-05-19 09:15 | disposition home or self-care (01) ==
LOC: ANHLAB 09:18
PROVIDERS: PCP Family Medicine; Visit Provider Internal Medicine Endocrinology, Diabetes & Metabolism
DX: E78.5 Hyperlipidemia, unspecified (principal); E11.9 Type 2 diabetes mellitus without complications; E04.9 Nontoxic goiter, unspecified; R79.89 Other specified abnormal findings of blood chemistry; Z71.3 Dietary counseling and surveillance
CPT/HCPCS: 36415; 80053; 80061; 82043; 82306; 82607; 84439; 84443; 84481; 84681; 86341

== ENCOUNTER 2024-08-30 14:45 | Outpatient (RCR) | payer OTHER, SELFPAY | END 2024-08-31 14:09 | disposition home or self-care (01) | LOC: ANHDMC 14:45 | PROVIDERS: PCP Family Medicine; Visit Provider Internal Medicine Endocrinology, Diabetes & Metabolism | DX: E11.9 Type 2 diabetes mellitus without complications (principal); Z79.4 Long term (current) use of insulin; Z71.89 Other specified counseling | CPT/HCPCS: G0108 ==

== ENCOUNTER 2025-01-05 10:05 | Outpatient (CLI) | payer OTHER, SELFPAY ==
--- OUTSIDE RECORDS SUMMARY | 2025-01-05 11:27 | XMS_ITS | Clinical Summary ---
Author Organization [facility] Address [address] [place] [id number] Care Team Providers Care Advertising Consultant Name Role Phone Sania Preciado MD Primary Care Provider [phone] Social History Tobacco Use Types Packs/Day Years Used Date Smoking Tobacco: Never Assessed Comments Unknown Sex and Gender Information Value Date Recorded Sex Assigned at Not on file Legal Sex Female 7:27 PM CDT Gender Identity Not on file Sexual Orientation Not on file Plan of Treatment Health Maintenance Due Date Last Done Comments Cervical Cancer Screening Pa p Smear (Age 30 to 64) Every 3 Years 1967 Colorectal Cancer Screening Colonoscopy (10 Years) 1967 Annual Physical 1970 Hepatitis C 1985 DTaP, Tdap and Td Vaccines ( 1 - Tdap) 1986 Hepatitis B Vaccines (1 of 3 - 19+ 3-dose series) 1986 Cervical Cancer Screening Pa p with HPV Testing (Age 30 to 64) Every 5 Years 1997 Cervical Cancer Screening with HPV 1997 Mammogram Screening 2007 Zoster Vaccines (1 of 2) 2017 COVID-19 Vaccine (2023-2 5 season) 2024 Influenza Adult (#1) 2024 Meningococcal B Vaccine Aged Out No l onger eligible based on patient's age to complete this topic Meningococcal Vaccine Aged Out No preston kavon eligible based on patient's age to complete this topic Pneumococcal Vaccine: Pediat rics (0 to 5 Years) and At-Risk Patients (6 to 64 Years) Aged Out No longer eligible b ased on patient's age to complete this topic RSV Immunizations Under 20 Months Aged Out No longer eligible based on patient's age to complete this topic Care Teams Advertising Consultant Relationship Specialty Start Date End Date Sania Preciado MD [address] [place] [address] [place] [address] PCP - General 11/28/15
--- OUTSIDE RECORDS SUMMARY | 2025-01-05 11:27 | XMS_ITS | Continuity of Care Document ---
Author Organization [employer] Address [address] [place] [address] Phone Care Team Providers Care [employer] Foreign Language Tutor Name Role Phone Unavailable Unavailable Unavailable Allergies, Adverse Reactions, Alerts Substance Reaction Status Criticality No Known Allergies Active No Inform ation Medications Medication Instructions Dosage Effective Dates (start - stop) Status Comments Multi For Her 50 Plus 400 mcg capsule one per day - Active tramadol 50 mg Tab take 1 tablet (50MG) by ORAL route every 6 hours as needed 50 MG - Active Aspir-81 81 mg Tab take 1 tablet (81MG) by ORAL route every day - Active Procedures Procedure Date OFFICE/OUTPATIENT VISIT, EST INJ MEDROXYPROGESTERONE ACETATE 013 Injection, medroxyprogesterone acetate ( Depo-Provera), 150 mg OFFICE/OUTPATIENT VISIT, EST OFFICE/OUTPATIENT VISIT, EST Injection, medroxyprogesterone acetate ( Depo-Provera), 150 mg OFFICE/OUTPATIENT VISIT, EST Injection, medroxyprogesterone acetate ( Depo-Provera), 150 mg OFFICE/OUTPATIENT VISIT, EST OFFICE/OUTPATIENT VISIT, EST INFLUENZA VACCINE, NO PRESERVATIVE, AGE 3YRS+ Injection, medroxyprogesterone acetate ( Depo-Provera), 150 mg OFFICE/OUTPATIENT VISIT, EST COLLECTION OF VENOUS BLOOD BY MATTEO ROPER OFFICE OUTPT EST 25 MIN Injection, medroxyprogesterone acetate ( Depo-Provera), 150 mg OFFICE/OUTPATIENT VISIT, EST Injection, medroxyprogesterone acetate ( Depo-Provera), 150 mg H1N1 VACCINE Administration Of H1N1 Vaccine 09 OFFICE/OUTPATIENT VISIT, EST Injection, medroxyprogesterone acetate ( Depo-Provera), 150 mg SCREENING TEST OF VISUAL ACUITY, QUANTIT ATIVE, BILATERAL OFFICE OUTPT EST 25 MIN OFFICE OUTPT EST 10 MIN Injection, medroxyprogesterone acetate ( Depo-Provera), 150 mg OFFICE OUTPT EST 25 MIN OFFICE OUTPT EST 10 MIN URINE TEST, BY VISUAL COLOR CO MPARISON METHODS Injection, medroxyprogesterone acetate ( Depo-Provera), 150 mg ADMINISTRATION OF ORAL, INTR AMUSCULAR AND/OR SUBCUTANEOUS MEDICATION BY [facility] OFFICE OUTPT EST 10 MIN OFFICE CONSULT, 15 MIN, 3 KE Y COMPS: PROB FOCUS HX; PROB FOCUS EXAM; STRTFWD Injection, medroxyprogesterone acetate ( Depo-Provera), 150 mg ADMINISTRATION OF ORAL, INTR AMUSCULAR AND/OR SUBCUTANEOUS MEDICATION BY [facility] CHYLMD TRACH, DNA, AMP PROBE N.GONORRHOEAE, DNA, AMP PROB OFFICE OUTPT EST 25 MIN URINE TEST, BY VISUAL COLOR CO MPARISON METHODS Injection, medroxyprogesterone acetate ( Depo-Provera), 150 mg OFFICE/OUTPATIENT VISIT, EST GLUCOSE BLOOD TEST INFLUENZA VACCINE, AGE 3YRS+ HEMOGLOBIN; GLYCOSYLATED (A1C) 08 OFFICE/OUTPATIENT VISIT, EST OFFICE/OUTPATIENT VISIT, EST URINE TEST, BY VISUAL COLOR CO MPARISON METHODS Injection, medroxyprogesterone acetate ( Depo-Provera), 150 mg OFFICE/OUTPATIENT VISIT, EST LIPID PANEL Injection, medroxyprogesterone acetate ( Depo-Provera), 150 mg HEMOGLOBIN; GLYCOSYLATED (A1C) 08 THYROID STIMULATING HORMONE (TSH) BASIC METABOLIC PANEL CALCIUM TOTAL BLOOD COUNT; COMPLETE (CBC), AUTOMATED (HGB, HCT, RBC, WBC AND PLATELET COUNT) URINE TEST, BY VISUAL COLOR CO MPARISON METHODS CYTP C/V AUTO THIN LYR PREPJ SCR MNL RES CR PHYS N.GONORRHOEAE, DNA, AMP PROB VACCINE ADMINISTRATION, FIRST SHOT Injection, medroxyprogesterone acetate ( Depo-Provera), 150 mg URNLS DIP STICK/TABLET RGNT AUTO W/O CINDY PERIODIC COMPREHENSIVE PREVENTIVE MED RE E/M; ESTABLISHED PATIENT; 40-64 CHYLMD TRACH, DNA, AMP PROBE Injection, medroxyprogesterone acetate ( Depo-Provera), 150 mg OFFICE OUTPT EST 25 MIN OFFICE OUTPT EST 10 MIN INFLUENZA VACCINE, AGE 3YRS+ HEMOGLOBIN; GLYCOSYLATED (A1C) 07 Injection, medroxyprogesterone acetate ( Depo-Provera), 150 mg GLUCOSE BLOOD TEST URINE TEST, BY VISUAL COLOR CO MPARISON METHODS GLUCOSE BLOOD TEST Injection, medroxyprogesterone acetate ( Depo-Provera), 150 mg URNLS DIP STICK/TABLET RGNT AUTO W/O CINDY HEMOGLOBIN; GLYCOSYLATED (A1C) 07 OPH MEDICAL XM&EVAL COMPRE NEW PT 1+ VST URNLS DIP STICK/TABLET RGNT AUTO W/O CINDY GLUCOSE BLOOD TEST OFFICE/OUTPATIENT VISIT, EST URINE TEST, BY VISUAL COLOR CO MPARISON METHODS HEMOGLOBIN; GLYCOSYLATED (A1C) 06 INFLUENZA VACCINE, AGE 3YRS+ OFFICE/OUTPATIENT VISIT, EST ALBUMIN; URINE, MICROALBUMIN, QUANTITATI VE URNLS DIP STICK/TABLET RGNT AUTO W/O CINDY GLUCOSE BLOOD TEST PERIODIC COMPREHENSIVE PREVENTIVE MED RE E/M; ESTABLISHED PATIENT; 18-39 CYTP C/V AUTO THIN LYR PREPJ SCR SYS PHY S CHYLMD TRACH, DNA, AMP PROBE N.GONORRHOEAE, DNA, AMP PROB Injection, medroxyprogesterone acetate ( Depo-Provera), 150 mg URINE TEST, BY VISUAL COLOR CO MPARISON METHODS OFFICE O/P EST 5 MIN Injection, medroxyprogesterone acetate ( Depo-Provera), 150 mg URINE TEST, BY VISUAL COLOR CO MPARISON METHODS Injection, medroxyprogesterone acetate ( Depo-Provera), 150 mg OFFICE OUTPT EST 10 MIN Results Test Name Date and Time Measure Units Reference Range Abnormal Flag Status Comments Panel Description: HCG, QL, URINE Final HCG, QL, URINE 3 16:29:00 NEGATIVE NEGATIVE N Final Test performed at [facility] [address] [id number] or: MACHO JIMENEZ MT([facility]) Advance Directives Directive Yes / No Effective Date File Name Resuscitation Not Answered N/A N/A Life Support Not Answered N/A N/A Intubation Not Answered N/A N/A Antibiotics Not Answered N/A N/A IV Fluid Support Not Answered N/A N/A Tube Feed Not Answered N/A N/A Other Directive N/A N/A WARNING:The information contained in this section is historical and is provided for information only and does not constitute a legal document or any assurance that the information is still accurate. Please verify the information with the negro of the legal document before using it for clinical purposes. Encounters Encounter Description Practice Location Reason(s) For Visit Diagnoses Date Provider Providers Copied on Encounter OFFICE/OUTPATI ENT VISIT, EST [facility], [address], [place], [place], [address] , [place] tel: [phone] [facility] depo (chief complaint) Surveillance of other contraceptive method 3 No Information OFFICE/OUTPATI ENT VISIT, EST [facility], [address], [place], [place], [address] , [place] tel: [phone] [facility] depo (chief complaint) Surveillance of other contraceptive methodNeed for prophylactic vaccination and inoculation, influenza 2 No Information OFFICE/OUTPATI ENT VISIT, EST [facility], [address], [place], [place], [address] , [place] tel: [phone] [facility] depo (chief complaint) Surveillance of other contraceptive method 2 No Information OFFICE/OUTPATI ENT VISIT, EST [facility], [address], [place], [place], [address] , [place] tel: [phone] [facility] depo (chief complaint) Surveillance of other contraceptive method 2 No Information OFFICE/OUTPATI ENT VISIT, EST [facility], [address], [place], [place], [address] , [place] tel: [phone] [facility] depo (chief complaint) Surveillance of other contraceptive method 0 No Information OFFICE/OUTPATI ENT VISIT, EST [facility], [address], [place], [place], [address] , [place] tel: [phone] [facility] depo (chief complaint) Surveillance of other contraceptive methodNeed for prophylactic vaccination and inoculation, influenza 0 No Information OFFICE/OUTPATI ENT VISIT, EST [facility], [address], [place], [place], [address] , [place] tel: [phone] [facility] back pain (chief complaint) Abdominal pain, unspecified site 0 Pachalla Betsy. [address], [place], [place], [address], [place]. tel:[phone] OFFICE OUTPT EST 25 MIN [facility], [address], [place], [place], [address] , [place] tel: [phone] [facility] depo (chief complaint) PAP test (chief complaint) Routine gynecological examinationCo ntraceptive surveillance, unspecifiedAb dominal pain, right upper quadrant 0 Pachalla Betsy. [address], [place], [place], [address], [place]. tel:[phone] OFFICE/OUTPATI ENT VISIT, EST [facility], [address], [place], [place], [address] , [place] tel: [phone] [facility] depo (chief complaint) Surveillance of other contraceptive method 0 Chapito Reyes. [address], [place], [place], [address], [place]. tel:[phone] Referring Provider: Amy Uriarte , [address], [place], [address] . tel:[phone] OFFICE/OUTPATI ENT VISIT, EST [facility], [address], [place], [place], [address] , [place] tel: [phone] [facility] depo shot (chief complaint) Surveillance of other contraceptive methodNeed for prophylactic vaccination and inoculation, influenza 9 Chapito Reyes. [address], [place], [address], [place]. tel:[phone] OFFICE OUTPT EST 25 MIN [facility], [address], [place], [place], [address] , [place] tel: [phone] [facility] left breast mass (chief complaint) left eye, left shoulder, arm pressure (chief complaint) Breast screening, unspecifiedSe nsory problems with limbs 9 Racielalla Betsy. [address], [place], [place], [address], [place]. tel:[phone] OFFICE OUTPT EST 10 MIN [facility], [address], [place], [address] [place] [address] , [place] tel: [phone] [facility] breast mass (chief complaint) Breast screening, unspecifiedCo ntraceptive surveillance, unspecified 9 Myrtle Meyer. [address], [place], [address] [place] [address], . tel:[phone] OFFICE OUTPT EST 25 MIN [facility], [address], [place], [address] [place] [address] , [place] tel: [phone] [facility] Left breast pain (chief complaint) back pain (chief complaint) No Information 9 Nidaa Besty. [address], [place], [address] [place] [address], . tel:[phone] OFFICE OUTPT EST 10 MIN [facility], [address], [place], [address] [place] [address] , tel: [phone] [facility] breast pain (chief complaint) diabetes (chief complaint) Breast screening, unspecifiedDi abetes mellitus without mention of complication, type II or unspecified type, uncontrolled 9 Nidaa Betsy. [address], [place], [address] [place] [address], [place]. tel:[phone] [facility], [address], [place], [address] [place] [address] , tel: [phone] Historic Immunization Location No Information 9 No Information OFFICE OUTPT EST 10 MIN [facility], [address], [place], [address] [place] [address] , [place] tel: [phone] [facility] Surveillance of other contraceptive method 9 Chapito Reyes. [address], [place], [address] [place] [address], . tel:[phone] OFFICE CONSULT, 15 MIN, 3 GUEVARA COMPS: PROB FOCUS HX; PROB FOCUS EXAM; STRTFWD [facility], [address], [place], [address] [place] [address] , tel:[phone] [facility] ECONOMIC PROBLEM 0 5-200 9 Murtic Madina. . OFFICE OUTPT EST 25 MIN [facility], [address], [place], [place], [address] , tel:[phone] [facility] CONTRACEPT SURVEILL NECROUTINE BOAT JOINER EXAMINATION 0 3-200 9 Mills-Paul Nealya. [address], [place], [place], [address], . tel:[phone] OFFICE/OUTPATI ENT VISIT, EST [facility], [address], [place], [place], [address] , tel:[phone] [facility] HEADACHEOTHER SPECFD COUNSELINGCON TRACEPT SURVEILL NOS 0 4-200 8 Pachalla Betsy. [address], [place], [place], [address], . tel:[phone] OFFICE/OUTPATI ENT VISIT, EST [facility], [address], [place], [place], [address] , tel: [phone] [facility] ACUTE STRESS REACT NOSDECREASED LIBIDODMII WO CMP UNCNTRLDHEADA LISETTE 0 9-200 8 Pachalla Betsy. [address], [place], [place], [address], [place]. tel:[phone] OFFICE/OUTPATI ENT VISIT, EST [facility], [address], [place], [place], [address] , [place] tel: [phone] [facility] CONTRACEPT SURVEILL NEC 2 1-200 8 Despotovic Trang. [address], [place], [place], [address], [place]. tel:[phone] OFFICE/OUTPATI ENT VISIT, EST [facility], [address], [place], [place], [address] , [place] tel:[phone] [facility] DMII WO CMP UNCNTRLDCONTR ACEPT SURVEILL NOSSCREEN LIPOID DISORDERS 6-200 8 Pachalla Betsy. [address], [place], [place], [address], . tel:[phone] PERIODIC COMPREHENSIVE PREVENTIVE MED REE/M; ESTABLISHED PATIENT; 40-64 [facility], [address], [place], [place], [address] , tel: [phone] [facility] ROUTINE BOAT JOINER EXAMINATIONCO NTRACEPT SURVEILL NEC 1-200 8 No Information OFFICE OUTPT EST 25 MIN [facility], [address], [place], [place], [address] , [place] tel: [phone] [facility] HEADACHECONTR ACEPT SURVEILL NEC 3-200 7 Xin Mandi. [address], [place], [place], [address], [place]. tel:[phone] OFFICE OUTPT EST 10 MIN [facility], [address], [place], [place], [address] , tel: [phone] [facility] DMII WO CMP NT ST UNCNTRCONTRAC EPT SURVEILL NOS Jul- 8-200 7 No Information [facility], [address], [place], [place], [address] , [place] tel: [phone] [facility] DMII OTH NT ST UNCNTRLDCONTR ACEPT SURVEILL NOS 0 9-200 7 Pachalla Betsy. [address], [place], [place], [address], . tel:[phone] [facility], [address], [place], [place], [address] , tel: [phone] [facility] DMII WO CMP NT ST UNCNTRHYPERME TROPIA 3-200 7 No Information OFFICE/OUTPATI ENT VISIT, EST [facility], [address], [place], [place], [address] , [place] tel: [phone] [facility] DMII OTH NT ST UNCNTRLDABSEN CE OF MENSTRUATION 2-200 7 Pachalla Betsy. [address], [place], [place], [address], [place]. tel:[phone] OFFICE/OUTPATI ENT VISIT, EST [facility], [address], [place], [place], [address] , [place] tel: [phone] [facility] CONTRACEPT SURVEILL NOSHISTORY OF TOBACCO USEDMII WO CMP NT ST UNCNTR 6 Pachalla Betsy. [address], [place], [place], [address], . tel:[phone] PERIODIC COMPREHENSIVE PREVENTIVE MED REE/M; ESTABLISHED PATIENT; 18-39 [facility], [address], [place], [address] , [place] tel: [phone] [facility] CONTRACEPT SURVEILL NECROUTINE BOAT JOINER EXAMINATION 6 No Information OFFICE O/P EST 5 MIN [facility], [address], [place], [place], [address] , [place] tel: [phone] [facility] CONTRACEPT SURVEILL NEC 6 No Information OFFICE OUTPT EST 10 MIN [facility], [address], [place], [place], [address] , [place] tel: [phone] [facility] CONTRACEPT SURVEILL NEC 6 No Information Family History Family Member Type Diagnosis Age At Onset Problem (finding) No family history of Re nal disease Problem (finding) No family history of Ca ncer Problem (finding) No family history of Di abetes mellitus Problem (finding) No family hist ory of Coronary artery disease Problem (finding) No family history of Hy perlipidemia Problem (finding) No family history of St roke Problem (finding) No family history of Hy pertension Immunizations Vaccine Date Status Comments flu (split) preservative allyson e, 3 yrs or older administered Source: New Immuniza tion Record flu (split) preservative allyson e, 3 yrs or older administered Source: New Immuniza tion Record INFLUENZA VIRUS VACCINE SPLI T VIRUS 3 YEARS + IM administered Source: New Immuniza tion Record IMADM PRQ ID SUBQ/IM NJXS 1 VACC administered Source: New Immuniza tion Record INFLUENZA VIRUS VACCINE SPLI T VIRUS 3 YEARS + IM administered Source: New Immuniza tion Record INFLUENZA VIRUS VACCINE SPLI T VIRUS 3 YEARS + IM administered Source: New Immuniza tion Record INFLUENZA VIRUS VACCINE SPLI T VIRUS 3 YEARS + IM administered Source: New Immuniza tion Record INFLUENZA VIRUS VACCINE SPLI T VIRUS 3 YEARS + IM administered Source: New Immuniza tion Record PNEUMOCOCCAL POLYSAC VACCINE 23-V 2 YR + SUBQ/IM administered Source: New Immuniza tion Record Payers Payer name Insurance type Covered constitution party ID Authoriza tion(s) No Information Social History Type Description Quantity Date Captured Comments Alcohol Use Details Unknown Caffeine Use Details coffee 4 cups per day Tobacco Use Status Smoking Status No Information Sex Female Vital Signs Date / Time: Height Weight BMI Pulse Rate Blood Pressure Temperature Respiratory Rate Body Surface Area Head Circumference Head Circ. Percentile Wt./Ferny. Percentile BMI percentile Pulse Ox Inhaled Ox 3:15 PM 99.00 lbs 82 /min 108/64 mm[Hg] Chief Complaint And Reason For Visit From encounter dated 12/22/2012 14:40'. depo (chief complaint) Reason For Referral Reason For Referral No Information Plan Of Treatment Date Type Action Status Goal PAP. Due on due Goal Urine Microalbumin. Due on due Goal H&P. Due on due Goal Urinalysis. Due on 10 due Goal Pneumococcal Vaccine. Due on due Goal BMP fasting. Due on 012 due Goal Breast exam. Due on 010 due Goal Influenza Vaccine. Due on due Referral Referred To: [address], [address] Ordered: Referral: [facility]. Radiology. Diagnostic testing. Appointment date/timeframe: 05/31/2010 ordered Referral Referred To: [facility] [address] [place], [address] Ordered: Referral: [facility]. Radiology. ordered Referral Referred To: breast center, [facility] Ordered: Referral: breast [place], [facility]. Surgery. ordered Future Order: Lab Order BASIC ME TABOLIC PANEL W/EGFR ([id number]), Appointment on: , Collected on: , Sent on: Sent Future Order: Lab Order POC GLUC OSE ([id number]), Appointment on: , Collected on: , Sent on: Sent Future Order: Lab Order POC HEMO GLOBIN A1C ([id number]), Appointment on: , Collected on: , Sent on: Sent History Of Present Illness Encounter Date Complaint History Of Prese nt Illness No Information Functional Status Date Functional Assessmen t Pain Score 0/10 Instructions Date Instruction Additional Infor mation No Information Assessments Type Assessment Date No Information Patient Care Teams Name Effective Dates (start - stop) Status Members No Information
--- OUTSIDE RECORDS SUMMARY | 2025-01-05 11:27 | XMS_ITS | Clinical Summary ---
Author Organization [facility] Address [address], [address] [address] Phone Care Team Providers Care Title Agent Name Role Phone Sania Preciado MD Primary Care Provider + Allergies No known active allergies Medications metFORMIN (GLUCOPHAGE) 500 MG Tablet Take 500 mg by mouth 2 times daily (with meals). 09/03/2018 Active JANUVIA 100 MG Tablet Take 100 mg by mouth daily. 09/03/2018 Active Bismuth 262 MG Chewable Tablet 3 PO QID FOR 10 DAYS 120 Tab 10/18/2018 Active metroNIDAZOLE (FLAGYL) 250 MG Tablet TAKE 1.5 TABS PO QID FOR 10 DAYS 60 Tab 10/18/2018 Active doxycycline hyclate (VIBRAMYCIN) 100 MG Capsule TAKE ONE TAB BID FOR 10 DAYS 20 Cap 10/18/2018 Active omeprazole (PRILOSEC) 20 MG CAPSULE DELAYED RELEASE TAKE ONE BID 20 Cap 10/18/2018 Active Family History Medical History Relation Name Comments Alzheimer's Disease Father Diabetes Father Hypertension Father Parkinsonism Father Diabetes Mother Hypertension Mother Stomach Cancer Paternal Aunt Colon Cancer Paternal Uncle Breast Cancer Sister Renal Failure Sister Relation Name Status Comments Father Alive Mother Alive Paternal Aunt Paternal Uncle Sister Social History Tobacco Use Types Packs/Day Years Used Date Smoking Tobacco: Every Day Cigarettes 1 32 Smokeless Tobacco: Never Tobacco Cessation:Ready to Q uit: No; Counseling Given: Yes Alcohol Use Standard Drinks/Week Comments Yes 0 (1 standard drink = 0.6 oz pur e alcohol) socially Sexually Active Control Partners Comments Never Comments No Sex and Gender Information Value Date Recorded Sex Assigned at Not on file Legal Sex Female 8:57 AM CDT Gender Identity Not on file Sexual Orientation Not on file 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 Not on file Not on file Last Filed Vital Signs Vital Sign Reading Time Taken Comments Blood Pressure 112/64 12/01/2018 1:03 PM [employer]AVER IN[employer] Pulse 86 12/01/2018 1:03 PM [employer]AVER INST[employer] Temperature 36.6 C (97.9 F) 12/01/2018 1:03 PM PAVER INST[employer]ER Respiratory Rate 18 12/01/2018 1:03 PM PAVER INST[employer]ER Oxygen Saturation 98% 12/01/2018 1:03 PM PAVER INSTALLER Inhaled Oxygen Concentration - - Weight 42.6 kg (94 lb) 12/01/2018 1:03 PM PAVER INSTALLER Height 149.9 cm (4' 11 ) 12/01/2018 1:03 PM PAVER INSTALLER Body Mass Index 18.99 12/01/2018 1:03 PM PAVER INSTALLER Plan of Treatment Health Maintenance Due Date Last Done Comments Hepatitis C Virus (HCV) Screening 1967 Hepatitis B Immunization (1 of 3 - 19+ 3-dose series) 1986 Pap Smear 1988 Cervical Cancer Screening (CCS) 1997 HPV/Cotest 1997 Mammogram 2007 Colonoscopy 2012 Colorectal Cancer Screening 2012 Cologuard 2017 Immunochemical Fecal Occult Blood 2017 Pneumococcal Immunization (50+ years) (2 of 2 - PCV) 2017 08/20/2015 Zoster Immunization (1 of 2) 2017 Influenza Immunization (#1) 07/03/202409/02, 09/18/2016, 08/20/2015, Additional history exists SARS-COV-2 Immunization ( season) 2024 08/13/2021, 01/18/2021, 12/28/2020 Respiratory Syncytial Virus (RSV) Immunization (Adult) (1 - 1-dose 75+ series) 2042 DTaP/Tdap/Td Immunization Discontinued 02/19/2015 TdaP Immunization Completed 02/19/2015 Pneumococcal Immunization Combined Discontinued 08/20/2015 Meningococcal Immunization (ACWY) Aged Out No longer eligible based on patient's age to complete this topic Rotavirus Immunization Aged Out No lo nger eligible based on patient's age to complete this topic Insurance MEDICAID [employer] Care Teams Title Agent Relationship Specialty Start Date End Date Sania Preciado MD [address] [place] [id number] PCP - General Family Medicine 09/29/18
[2025-01-05 11:43] LABS: Alanine Aminotransferase 33 U/L (6-35); Albumin Level 4.3 g/dL (3.5-5.1); Alkaline Phosphatase 135 U/L (38-126); Anion Gap 9 mmol/L (4-12); Aspartate Amino Transferase 29 U/L (14-36); Bilirubin,Total 0.5 mg/dL (0.2-1.3); Blood Urea Nitrogen 12 mg/dL (7-17); Carbon Dioxide 26 mmol/L (22-30); Chloride 106 mmol/L (98-107); Cholesterol 114 mg/dL (0-200); Estimated Glomerular Filt Rate > 60; Glucose 134 mg/dL (65-110); HDL Direct 45 mg/dL; Potassium 4.1 mmol/L (3.4-5.0); Sodium 141 mmol/L (137-145); Triglycerides 68 mg/dL (<150)
[2025-01-05 11:57] LABS: LDL Cholesterol Direct 46 mg/dL
[2025-01-05 12:08] LABS: Free T4 Free Thyroxine 1.36 ng/dL (0.78-2.19); Vitamin D 25 Hydroxy 58.2 ng/mL
[2025-01-05 12:12] LABS: Thyroid Stimulating Hormone 0.628 uIU/mL (0.465-4.680)
[2025-01-05 12:40] LABS: Creatinine Urine 84.7 mg/dL
[2025-01-05 12:55] LABS: MALB Creatinine Ratio < 7.1 mg/g (0-30); Microalbumin Urine Random < 6.0 mg/L (0-16.7)
== END 2025-01-05 10:06 | disposition home or self-care (01) ==
LOC: ANHLAB 10:06
PROVIDERS: PCP Family Medicine; Visit Provider Internal Medicine Endocrinology, Diabetes & Metabolism
DX: E78.5 Hyperlipidemia, unspecified (principal); E13.9 Other specified diabetes mellitus without complications; R79.89 Other specified abnormal findings of blood chemistry; Z71.3 Dietary counseling and surveillance
CPT/HCPCS: 36415; 80053; 80061; 82043; 82306; 82607; 84439; 84443

== ENCOUNTER 2025-01-24 13:56 | Outpatient (CLI) | payer OTHER, SELFPAY ==
[2025-01-24 14:52] LABS: Hematocrit 42.2 % (37.0-47.0); Hemoglobin 13.9 g/dL (12.0-15.0); Mean Corpuscular HGB Conc 32.9 g/dl (32-36); Mean Corpuscular Volume 82.1 fl (80-100); Mean Platelet Volume 9.2 fl (7.4-10.4); Platelet Count Result 297 k/mm3 (150-375); Red Blood Count 5.14 M/mm3 (4.2-5.4); Red Cell Distribution Width 15.4 % (11.5-14.5); White Blood Count 11.7 K/mm3 (4.5-10.0)
[2025-01-24 14:58] LABS: Iron 74 ug/dL (37-170)
[2025-01-24 16:06] LABS: Percent Iron Saturation 20 % (20-50)
--- OUTSIDE RECORDS SUMMARY | 2025-01-24 16:18 | XMS_ITS | Continuity of Care Document ---
Author Organization [employer] Address [address] [place] [address] Phone Care Team Providers Care Jigsawyer Name Role Phone Unavailable Unavailable Unavailable Allergies, [...] ORAL, INTR AMUSCULAR AND/OR SUBCUTANEOUS MEDICATION BY [facility] OFFICE OUTPT EST 10 MIN OFFICE CONSULT, 15 MIN, 3 KE Y COMPS: PROB FOCUS HX; PROB FOCUS EXAM; STRTFWD OFFICE OUTPT EST 25 MIN URINE TEST, BY VISUAL COLOR CO MPARISON METHODS Injection, medroxyprogesterone acetate ( Depo-Provera), 150 mg N.GONORRHOEAE, DNA, AMP PROB ADMINISTRATION OF ORAL, INTR AMUSCULAR AND/OR SUBCUTANEOUS MEDICATION BY [facility] CHYLMD TRACH, DNA, AMP PROBE OFFICE/OUTPATIENT VISIT, EST Injection, medroxyprogesterone acetate ( Depo-Provera), 150 mg OFFICE/OUTPATIENT VISIT, EST HEMOGLOBIN; GLYCOSYLATED (A1C) 08 GLUCOSE BLOOD TEST INFLUENZA VACCINE, AGE 3YRS+ Injection, medroxyprogesterone acetate ( Depo-Provera), 150 mg URINE TEST, BY VISUAL COLOR CO MPARISON METHODS OFFICE/OUTPATIENT VISIT, EST THYROID STIMULATING HORMONE (TSH) BLOOD COUNT; COMPLETE (CBC), AUTOMATED (HGB, HCT, RBC, WBC AND PLATELET COUNT) LIPID PANEL OFFICE/OUTPATIENT VISIT, EST BASIC METABOLIC PANEL CALCIUM TOTAL HEMOGLOBIN; GLYCOSYLATED (A1C) 08 Injection, medroxyprogesterone acetate ( Depo-Provera), 150 mg CHYLMD TRACH, DNA, AMP PROBE PERIODIC COMPREHENSIVE PREVENTIVE MED RE E/M; ESTABLISHED PATIENT; 40-64 URINE TEST, BY VISUAL COLOR CO MPARISON METHODS CYTP C/V AUTO THIN LYR PREPJ SCR MNL RES CR PHYS N.GONORRHOEAE, DNA, AMP PROB VACCINE ADMINISTRATION, FIRST SHOT Injection, medroxyprogesterone acetate ( Depo-Provera), 150 mg URNLS DIP STICK/TABLET RGNT AUTO W/O CINDY OFFICE OUTPT EST 25 MIN Injection, medroxyprogesterone acetate ( Depo-Provera), 150 mg OFFICE OUTPT EST 10 MIN GLUCOSE BLOOD TEST Injection, medroxyprogesterone acetate ( Depo-Provera), 150 mg HEMOGLOBIN; GLYCOSYLATED (A1C) 07 INFLUENZA VACCINE, AGE 3YRS+ GLUCOSE BLOOD TEST URINE TEST, BY VISUAL COLOR CO MPARISON METHODS Injection, medroxyprogesterone acetate ( Depo-Provera), 150 mg URNLS DIP STICK/TABLET RGNT AUTO W/O CINDY HEMOGLOBIN; GLYCOSYLATED (A1C) 07 OPH MEDICAL XM&EVAL COMPRE NEW PT 1+ VST OFFICE/OUTPATIENT VISIT, EST GLUCOSE BLOOD TEST URINE TEST, BY VISUAL COLOR CO MPARISON METHODS URNLS DIP STICK/TABLET RGNT AUTO W/O CINDY GLUCOSE BLOOD TEST OFFICE/OUTPATIENT VISIT, EST ALBUMIN; URINE, MICROALBUMIN, QUANTITATI VE URNLS DIP STICK/TABLET RGNT AUTO W/O CINDY HEMOGLOBIN; GLYCOSYLATED (A1C) 06 INFLUENZA VACCINE, AGE 3YRS+ CHYLMD TRACH, DNA, AMP PROBE N.GONORRHOEAE, DNA, AMP PROB Injection, medroxyprogesterone acetate ( Depo-Provera), 150 mg URINE TEST, BY VISUAL COLOR CO MPARISON METHODS PERIODIC COMPREHENSIVE PREVENTIVE MED RE E/M; ESTABLISHED PATIENT; 18-39 CYTP C/V AUTO THIN LYR PREPJ SCR SYS PHY S Injection, medroxyprogesterone acetate ( Depo-Provera), 150 mg OFFICE O/P EST 5 MIN URINE TEST, BY VISUAL COLOR CO MPARISON METHODS Injection, medroxyprogesterone acetate ( Depo-Provera), 150 mg OFFICE OUTPT EST 10 MIN Results Test Name Date and Time Measure Units Reference Range Abnormal Flag Status Comments Panel Description: HCG, QL, URINE Final HCG, QL, URINE 3 16:29:00 NEGATIVE NEGATIVE N Final Test performed at [facility] [address] [id number] or: MACHO JIMENEZ MT([facility]) Advance Directives Directive Yes / No Effective [...] EST [facility], [address], [place], [place], [address] , [place] tel: [phone] [facility] depo (chief complaint) Surveillance of other contraceptive method 3 No Information OFFICE/OUTPATI ENT VISIT, EST [facility], [address], [place], [place], [address] , [place] tel: [phone] [facility] depo (chief complaint) Surveillance of other contraceptive methodNeed for prophylactic vaccination and inoculation, influenza 2 No Information OFFICE/OUTPATI ENT VISIT, EST [facility], [address], [place], [place], [address] , [place] tel: [phone] [facility] depo (chief complaint) Surveillance of other contraceptive method 2 No Information OFFICE/OUTPATI ENT VISIT, EST [facility], [address], [place], [place], [address] , [place] tel: [phone] [facility] depo (chief complaint) Surveillance of other contraceptive method 2 No Information OFFICE/OUTPATI ENT VISIT, EST [facility], [address], [place], [place], [address] , [place] tel: [phone] [facility] depo (chief complaint) Surveillance of other contraceptive method 0 No Information OFFICE/OUTPATI ENT VISIT, EST [facility], [address], [place], [place], [address] , [place] tel: [phone] [facility] depo (chief complaint) Surveillance of other contraceptive methodNeed for prophylactic vaccination and inoculation, influenza 0 No Information OFFICE/OUTPATI ENT VISIT, EST [facility], [address], [place], [place], [address] , [place] tel: [phone] [facility] back pain (chief complaint) Abdominal pain, unspecified site 0 Pachalla Betsy. [address], [place], [place], [address], [place]. tel:[phone] OFFICE OUTPT EST 25 MIN [facility], [address], [place], [place], [address] , [place] tel: [phone] [facility] depo (chief complaint) PAP test (chief complaint) Routine gynecological examinationCo ntraceptive surveillance, unspecifiedAb dominal pain, right upper quadrant 0 Pachalla Betsy. [address], [place], [place], [address], [place]. tel:[phone] OFFICE/OUTPATI ENT VISIT, EST [facility], [address], [place], [place], [address] , [place] tel: [phone] [facility] depo (chief complaint) Surveillance of other contraceptive method 0 Chapito Reyes. [address], [place], [place], [address], [place]. tel:[phone] Referring Provider: Amy Uriarte , [address], [place], [address] . tel:[phone] OFFICE/OUTPATI ENT VISIT, EST [facility], [address], [place], [place], [address] , [place] tel: [phone] [facility] depo shot (chief complaint) Surveillance of other contraceptive methodNeed for prophylactic vaccination and inoculation, influenza 9 Chapito Reyes. [address], [place], [place], [address], [place]. tel:[phone] OFFICE OUTPT EST 25 MIN [facility], [address], [place], [place], [address] , [place] tel: [phone] [facility] left breast mass (chief complaint) left eye, left shoulder, arm pressure (chief complaint) Breast screening, unspecifiedSe nsory problems with limbs 9 Racielalla Betsy. [address], [place], [place], [address], [place]. tel:[phone] OFFICE OUTPT EST 10 MIN [facility], [address], [place], [address] [place] [address] , [place] tel: [phone] [facility] breast mass (chief complaint) Breast screening, unspecifiedCo ntraceptive surveillance, unspecified 9 Myrtle Meyer. [address], [place], [address] [place] [address], . tel:[phone] OFFICE OUTPT EST 25 MIN [facility], [address], [place], [address] [place] [address] , [place] tel: [phone] [facility] Left breast pain (chief complaint) back pain (chief complaint) No Information 9 Nidaa Betsy. [address], [place], [address] [place] [address], . tel:[phone] OFFICE OUTPT EST 10 MIN [facility], [address], [place], [address] [place] [address] , tel: [phone] [facility] breast pain (chief complaint) diabetes (chief complaint) Breast screening, unspecifiedDi abetes mellitus without mention of complication, type II or unspecified type, uncontrolled 9 Nidaa Betsy. [address], [place], [address] [place] [address], [place]. tel:[phone] [facility], [address], [place], [address] [place] [address] , tel: [phone] Historic Immunization Location No Information 9 No Information OFFICE OUTPT EST 10 MIN [facility], [address], [place], [address] [place] [address] , [place] tel: [phone] [facility] Surveillance of other contraceptive method 9 Chapito Reyes. [address], [place], [address] [place] [address], . tel:[phone] OFFICE CONSULT, 15 MIN, 3 GUEVARA COMPS: PROB FOCUS HX; PROB FOCUS EXAM; STRTFWD [facility], [address], [place], [address] [place] [address] , tel:[phone] [facility] ECONOMIC PROBLEM 0 5-200 9 Murtic Madina. . OFFICE OUTPT EST 25 MIN [facility], [address], [place], [place], [address] , tel:[phone] [facility] CONTRACEPT SURVEILL NECROUTINE SEEING EYE DOG TRAINER EXAMINATION 0 3-200 9 Mills-Paul Nealya. [address], [place], [place], [address], . tel:[phone] OFFICE/OUTPATI ENT VISIT, EST [facility], [address], [place], [place], [address] , tel:[phone] [facility] HEADACHEOTHER SPECFD COUNSELINGCON TRACEPT SURVEILL NOS 0 4-200 8 Pachalla Betsy. [address], [place], [place], [address], . tel:[phone] OFFICE/OUTPATI ENT VISIT, EST [facility], [address], [place], [place], [address] , tel: [phone] [facility] ACUTE STRESS REACT NOSDECREASED LIBIDODMII WO CMP UNCNTRLDHEADA LISETTE 0 9-200 8 Pachalla Betsy. [address], [place], [place], [address], [place]. tel:[phone] OFFICE/OUTPATI ENT VISIT, EST [facility], [address], [place], [place], [address] , [place] tel: [phone] [facility] CONTRACEPT SURVEILL NEC 2 1-200 8 Despotovic Trang. [address], [place], [place], [address], [place]. tel:[phone] OFFICE/OUTPATI ENT VISIT, EST [facility], [address], [place], [place], [address] , [place] tel:[phone] [facility] DMII WO CMP UNCNTRLDCONTR ACEPT SURVEILL NOSSCREEN LIPOID DISORDERS 6-200 8 Pachalla Betsy. [address], [place], [place], [address], . tel:[phone] PERIODIC COMPREHENSIVE PREVENTIVE MED REE/M; ESTABLISHED PATIENT; 40-64 [facility], [address], [place], [place], [address] , tel: [phone] [facility] ROUTINE SEEING EYE DOG TRAINER EXAMINATIONCO NTRACEPT SURVEILL NEC 1-200 8 No Information OFFICE OUTPT EST 25 MIN [facility], [address], [place], [place], [address] , [place] tel: [phone] [facility] HEADACHECONTR ACEPT SURVEILL NEC 3-200 7 Xin Mandi. [address], [place], [place], [address], [place]. tel:[phone] OFFICE OUTPT EST 10 MIN [facility], [address], [place], [place], [address] , tel: [phone] [facility] DMII WO CMP NT ST UNCNTRCONTRAC EPT SURVEILL NOS Jul- 8-200 7 No Information [facility], [address], [place], [place], [address] , [place] tel: [phone] [facility] DMII OTH NT ST UNCNTRLDCONTR ACEPT SURVEILL NOS 0 9-200 7 Pachalla Betsy. [address], [place], [place], [address], . tel:[phone] [facility], [address], [place], [place], [address] , tel: [phone] [facility] DMII WO CMP NT ST UNCNTRHYPERME TROPIA 3-200 7 No Information OFFICE/OUTPATI ENT VISIT, EST [facility], [address], [place], [place], [address] , [place] tel: [phone] [facility] DMII OTH NT ST UNCNTRLDABSEN CE OF MENSTRUATION 2-200 7 Pachalla Betsy. [address], [place], [place], [address], [place]. tel:[phone] OFFICE/OUTPATI ENT VISIT, EST [facility], [address], [place], [place], [address] , [place] tel: [phone] [facility] CONTRACEPT SURVEILL NOSHISTORY OF TOBACCO USEDMII WO CMP NT ST UNCNTR 6 Pachalla Betsy. [address], [place], [place], [address], . tel:[phone] PERIODIC COMPREHENSIVE PREVENTIVE MED REE/M; ESTABLISHED PATIENT; 18-39 [facility], [address], [place], [place], [address] , [place] tel: [phone] [facility] CONTRACEPT SURVEILL NECROUTINE SEEING EYE DOG TRAINER EXAMINATION 6 No Information OFFICE O/P EST 5 MIN [facility], [address], [place], [place], [address] , [place] tel: [phone] [facility] CONTRACEPT SURVEILL NEC 6 No Information OFFICE OUTPT EST 10 MIN [facility], [address], [place], [place], [address] , [place] tel: [phone] [facility] CONTRACEPT SURVEILL NEC 6 [...] Record Payers Payer name Insurance type Covered alliance party ID Authoriza tion(s) No Information Social [...] And Reason For Visit From encounter dated '12/22/2012 14:40'. depo (chief complaint) Reason For Referral Reason For Referral No Information Plan Of Treatment Date Type Action Status Goal Pneumococcal Vaccine. Due on due Goal PAP. Due on due Goal Urine Microalbumin. Due on due Goal H&P. Due on due Goal Breast exam. Due on 010 due Goal Urinalysis. Due on 10 due Goal Influenza Vaccine. Due on due Goal BMP fasting. Due on 012 due Referral Referred To: [address], [address] Ordered: Referral: [facility]. Radiology. Diagnostic testing. Appointment date/timeframe: 05/31/2010 ordered Referral Referred To: [facility] [address] [place], [address] Ordered: Referral: [facility]. Radiology. ordered Referral Referred To: breast center, [facility] Ordered: Referral: [place], [facility]. Surgery. ordered Future Order: Lab Order BASIC ME TABOLIC PANEL W/EGFR ([id number]), Appointment on: , Collected on: , Sent on: Sent Future Order: Lab Order POC GLUC OSE ([id number]), Appointment on: , Collected on: , Sent on: Sent Future Order: Lab Order POC HEMO GLOBIN A1C ([id number]), Appointment on: , Collected on: , Sent [...]
--- OUTSIDE RECORDS SUMMARY | 2025-01-24 16:18 | XMS_ITS | Continuity of Care Document ---
Author Organization [place] - [facility], [facility] [place] Address [address] [place] [address] Assessment No assessment recorded. Plan of Treatment Reminders Order Date Submit Date Provider Last Modified By Organization Details Last Modified Time Details Appointments Follow Up 30 2024 01:30P Blair Guillory NP Not available Not available Not available Lab None recorded. Referral dermatolo gist referral - Please call patient to schedule an appointme nt. Thank you. 2024 025 [facility], [address] [place] [address], [id number], 01/23/2025 11:44:12 Procedures None recorded. Surgeries None recorded. Imaging LDCT, chest, for lung cancer screening 2024 025 [facility], [address], [address], 01/23/2025 11:30:48 Medication Orders None recorded. Patient TargetsNo targets recorded. Patient InstructionsNo instructions recorded. 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 Thank you. Referring Physician: Opal Guillory, Family Medicine, Encounter Date: 01/23/2025 Problems Name Problem SNOMED Code Status Onset Date Resolution Date Notes Provider Name and Address Organization Details Recorded Time Tobacco user 116573583 Active Not Available [facility] 3 00:57:51 Amenorrhea 64780960 Active Not Available [facility] 3 00:57:51 Acquired trigger finger 5746044 Active Not Available [facility] 3 00:57:51 Increased frequency of urination 336810417 Active Not Available [facility] 3 00:57:51 Anti-nucle ar factor detected 100455955 Active 2021 Not Available [facility] 3 00:57:51 Thyroid hormone tests outside reference range 339136237 Active Not Available [facility] 3 00:57:51 Liver function tests outside reference range 395649217 Active Not Available [facility] 3 00:57:51 Lateral epicondyli tis 343602216 Active Not Available [facility] 3 00:57:51 Abdominal pain 56691789 Active Not Available [facility] 3 00:57:51 Malaise and fatigue 674326668 Active Not Available [facility] 3 00:57:51 Toothache 36885979 Active Not Available [facility] 3 00:57:51 Right lower quadrant pain 016490685 Completed Not Available [facility] 3 00:53:43 Dyslipidem ia 767546120 Active 2021 Not Available [facility] 3 00:57:51 Pelvic congestion syndrome 70094818 Active Not Available [facility] 3 00:57:51 Onychomyco sis 569848451 Active Not Available [facility] 3 00:57:51 Latent autoimmune diabetes mellitus in adult 900435396 Active 2021 Not Available [facility] 3 00:57:51 Infection of tooth 965793819 Active Not Available [facility] 3 00:57:51 Uncontroll ed type 2 diabetes mellitus 804046258 Active 2021 Not Available [facility] 3 00:57:51 Hip pain 31477764 Active Not Available [facility] 3 00:57:51 Cough 71379296 Active Not Available [facility] 3 00:57:51 Hyperlipid emia 96228602 Active Not Available [facility] 3 00:57:51 Urinary tract infectious disease 41035746 Active Not Available [facility] 3 00:57:51 Dyspareuni a 47176177 Active Not Available [facility] 3 00:57:51 Diabetes mellitus 17607303 Active Not Available [facility] 3 00:57:51 Cyst of ovary 65091974 Active Not Available [facility] 3 00:57:51 Neck pain 30897382 Active Not Available [facility] 3 00:57:51 Fatigue 55170534 Active Not Available [facility] 3 00:57:51 Bacterial infectious disease 18700897 Completed Not Available [facility] 3 00:53:44 Type 2 diabetes mellitus 95137002 Active 2022 Not Available [facility] 3 00:57:51 Sleep related bruxism 615795816 Active 2022 Not Available [facility] 3 00:57:51 Insomnia 011240394 Active 2022 Sania Preciado MD [address], [place], [address] , [address] 3 15:23:51 Thyroid function tests abnormal 517529226 Active 2023 Sania Preciado MD [address], [address], [place], [address] , [address] 4 09:45:42 Essential hypertensi on 50302402 Active 2023 MASTER Shabazz [address], [place], [address] , [address] 4 11:08:09 Alopecia 00555144 Active 2024 MASTER Shabazz [address], [place], [address] , [address] 5 10:16:32 Problem Notes None recorded. Procedures Surgical History Date Name Laterality Status Provider Name and Address Organization Details Recorded Time 021 Date of Last Pap Smear completed Not Available [facility] 12/31/2022 00:47:55 REGISTERED TRAVEL NURSE Procedure completed Not Available [facility] 12/31/2022 00:47:57 020 Most Recent Mammogram completed Not Available [facility] 12/31/2022 00:47:55 016 colonoscopy completed Not Available [facility] 12/31/2022 00:47:57 Gastrointestinal Surgery completed Not Available [facility] 12/31/2022 00:47:57 Tubal Ligation completed Not Available [facility] 12/31/2022 00:47:57 delivery completed Not Available [facility] 12/31/2022 00:47:57 Imaging Results None recorded. Procedure Notes None recorded. Medical Equipment None Reported. Allergies No known drug allergies Medications Name Sig Start Date Stop Date Status Note LastModified by Organization Details LastModified Time Dexcom G6 CGM active Not Available Not Available Not Available celecoxib 200 mg capsule Take 1 capsule every day by oral route. active Not Available Not Available No t Available cyclobenz aprine 10 mg tablet TAKE ONE TABLET BY MOUTH THREE TIMES DAILY as needed 11/20 completed Not Available Not Available Not Available amoxicill in 500 mg capsule 03/24 completed Not Available Not Available Not Available atorvasta tin 40 mg tablet TAKE 1 TABLET BY MOUTH ONCE DAILY active Not Available Not Available No t Available metformin 500 mg tablet TAKE ONE TABLET BY MOUTH TWICE DAILY 04/04 completed Not Available Not Available Not Available paroxetin e 10 mg tablet TAKE 1 TABLET BY MOUTH ONCE DAILY 11/26 completed Not Available Not Available Not Available nicotine 14 mg/24 hr daily transderm al patch Apply 1 patch every day by transder mal route for 28 days. 05/21 completed Not Available Not Available Not Available tizanidin e 2 mg tablet TAKE 1 TABLET BY MOUTH ONCE DAILY NEEDED FOR MUSCLE SPASM active Not Available Not Available No t Available azithromy glo 250 mg tablet TAKE 2 TABLETS (500 MG) BY ORAL ROUTE ONCE DAILY FOR 1 DAY THEN 1 TABLET (250 MG) BY ORAL ROUTE ONCE DAILY FOR 4 DAYS active Not Available Not Available No t Available ibuprofen 800 mg tablet TAKE 1 TABLET BY MOUTH EVERY 8 HOURS NEEDED FOR MODERATE PAIN (4 6 ON PAIN SCALE) active Not Available Not Available No t Available fluconazo le 150 mg tablet active Not Available Not Available Not Available benzonata te 200 mg capsule Take 1 capsule 3 times a day by oral route as needed. 07/13 completed Not Available Not Available Not Available hydrocodo ne 5 mg-acetam inophen 325 mg tablet active Not Available Not Available Not Available FreeStyle Lancets 28 gauge 11/26 completed Not Available Not Available Not Available prednison e 20 mg tablet Take 2 tablets every day by oral route for 5 days. active Not Available Not Available No t Available metronida zole 250 mg tablet 11/03 completed Not Available Not Available Not Available Debrox 6.5 % ear drops INSTILL 5 DROPS INTO AFFECTED EAR(S) BY OTIC ROUTE 2 TIMES PER DAY 11/26 completed Not Available Not Available Not Available aspirin 81 mg tablet,de layed release Take 1 tablet every day by oral route. 11/26 completed Not Available Not Available Not Available tramadol 50 mg tablet Take 1 tablet(s ) EVERY 8 HOURS as needed for pain active Not Available Not Available No t Available glimepiri de 1 mg tablet Take 2 tablets twice a day by oral route before meals for 30 days. 04/04 completed Not Available Not Available Not Available Ensure High Protein oral liquid Take 237 mL twice a day by oral route. 07/17 completed Not Available Not Available Not Available lancets test 4x per day 2022 active Not Available Not Available Not Avai lable Metrogel Vaginal 0.75 % (37.5 mg/5 gram) Insert 1 applicat orful every day by vaginal route at bedtime for 5 days. active Not Available Not Available No t Available amitripty line 25 mg tablet TAKE ONE TABLET BY MOUTH [facility] 12/21 completed Not Available Not Available Not Available prednisol one acetate 1 % eye drops,tari pension INSTILL 1 DROP INTO LEFT EYE 4 TIMES DAILY . SHAKE WELL 03/18 completed Not Available Not Available Not Available Lamisil 250 mg tablet Take 1 tablet(s ) every day by oral route. 10/01 completed Not Available Not Available Not Available OneTouch Ultra Test strips USE 1 STRIP TO CHECK GLUCOSE THREE TIMES DAILY active Not Available Not Available No t Available meclizine 25 mg tablet Take 1 tablet 3 times a day by oral route. active Not Available Not Available No t Available doxycycli ne monohydra te 100 mg capsule 11/03 completed Not Available Not Available Not Available prednison e 2.5 mg tablet TAKE 2 TABLETS BY MOUTH TWICE DAILY FOR 5 DAYS,THE N 1 TABLET TWICE DAILY FOR 5 DAYS THEN 1 TABLET ONCE DAILY FOR 5 DAYS THEN 1 TABLET EVERY OTHER DAY FOR 5 DOSES AND STOP 07/28 completed Not Available Not Available Not Available cephalexi n 500 mg capsule TAKE 1 CAPSULE BY MOUTH EVERY 6 HOURS FOR 7 DAYS 08/04 completed Not Available Not Available Not Available oseltamiv ir 75 mg capsule 01/16 completed Not Available Not Available Not Available neomycin- polymyxin -dexameth 3.5 mg/mL-10, 000 unit/mL-0 .1% eye drops INSTILL 1 DROP INTO RIGHT EYE 4 TIMES DAILY 01/23 completed Not Available Not Available Not Available promethaz ine 25 mg tablet 09/18 completed Not Available Not Available Not Available polymyxin B sulfate 10,000 unit-trim ethoprim 1 mg/mL eye drops INSTILL 1 DROP INTO RIGHT EYE EVERY 3 HOURS FOR 7 DAYS WHILE AWAKE. DO NOT EXCEED 6 DOSES IN 24 HOURS 08/04 completed Not Available Not Available Not Available omeprazol e 20 mg capsule,d elayed release TK 1 C PO D 01/16 completed Not Available Not Available Not Available dextromet horphan-g uaifenesi n ER 60 mg-1,200 mg tab,exten d release,1 2hr Take 1 tablet every 12 hours by oral route. 01/22 completed Not Available Not Available Not Available diclofena c sodium 75 mg tablet,de layed release Take 1 tablet twice a day by oral route. 09/18 completed Not Available Not Available Not Available amoxicill in 250 mg capsule 03/24 completed Not Available Not Available Not Available zolpidem 5 mg tablet TAKE 1 TABLET BY MOUTH EVERY DAY AT BEDTIME NEEDED 01/23 completed Not Available Not Available Not Available mirtazapi ne 15 mg tablet TAKE 1/2 (ONE-NEFTALI F) TABLET BY MOUTH EVERY DAY AT BEDTIME 01/23 completed Not Available Not Available Not Available ibuprofen 600 mg tablet TAKE 1 TABLET BY MOUTH THREE TIMES DAILY NEEDED 01/23 completed Not Available Not Available Not Available methylpre dnisolone 4 mg tablets in a dose pack Take per package directio ns 03/24 completed Not Available Not Available Not Available ondansetr on 4 mg disintegr ating tablet DIS ONE T PO Q 6 TO 8 H PRF NAUSEA 07/17 completed Not Available Not Available Not Available fluticaso ne propionat e 50 mcg/actua tion nasal spray,tari pension [place] 1 spray every day by intranas al route. 11/26 completed Not Available Not Available Not Available lisinopri l 2.5 mg tablet TAKE 1 TABLET BY MOUTH ONCE DAILY active Not Available Not Available No t Available amoxicill in 875 mg-potass ium clavulana te 125 mg tablet Take 1 tablet every 12 hours by oral route for 7 days. active Not Available Not Available No t Available amoxicill in 500 mg-potass ium clavulana te 125 mg tablet TAKE 1 TABLET BY MOUTH TWICE DAILY FOR 10 DAYS 08/04 completed Not Available Not Available Not Available nicotine 7 mg/24 hr daily transderm al patch Apply 1 patch every day by transder mal route for 14 days. 05/21 completed Not Available Not Available Not Available Ventolin HFA 90 mcg/actua tion aerosol inhaler Inhale 2 puffs every 4 hours by inhalati on route. 08/22 completed Not Available Not Available Not Available Bactrim DS 800 mg-160 mg tablet Take 1 tablet every 12 hours by oral route for 3 days. 09/25 completed Not Available Not Available Not Available insulin lispro (U-100) 100 unit/mL subcutane ous pen INJECT 3 UNITS SUBCUTAN EOUSLY BEFORE EACH MEAL, PLUS ADDITION AL SLIDING SCALE FOR BLOOD SUGAR 140-250: ADD 1 UNIT, 251-340: ADD 2 UNITS, MORE THAN 341-ADD 3 UNITS. MAX DAILY DOSE OF 18 UNITS active Not Available Not Available No t Available cyclobenz aprine 5 mg tablet Take 1 tablet every 8 horus as needed 09/18 completed Not Available Not Available Not Available rosuvasta tin 40 mg tablet Take 1 tablet twice a week by oral route at bedtime for 30 days. 01/06 completed take on Mondays and s Not Available Not Available Not Available bupropion HCl XL 150 mg 24 hr tablet, extended release TAKE 1 TABLET BY MOUTH ONCE DAILY IN THE MORNING 08/04 completed Not Available Not Available Not Available mirtazapi ne 7.5 mg tablet Take 0.5 tablets every day by oral route at bedtime for 30 days. 12/21 completed Not Available Not Available Not Available duloxetin e 30 mg capsule,d elayed release TAKE 1 CAPSULE BY MOUTH TWICE DAILY 07/29 completed Not Available Not Available Not Available magnesium active Not Available Not Vero ilable Not Available Januvia 100 mg tablet TAKE ONE TABLET BY MOUTH ONCE DAILY 04/04 completed Not Available Not Available Not Available FreeStyle Lite Meter kit 11/26 completed Not Available Not Available Not Available Lantus Solostar U-100 Insulin 100 unit/mL (3 mL) subcutane ous pen INJECT UP TO 10 UNITS SC qhs active Not Available Not Available No t Available GaviLyte- N 420 gram oral solution 09/18 completed Not Available Not Available Not Available Tradjenta 5 mg tablet TAKE 1 TABLET BY MOUTH IN THE MORNING active Not Available Not Available No t Available Invokana 300 mg tablet Take 1 tablet every day by oral route. 05/21 completed Sample Qty: 10. Not Available Not Available Not Available Nexium 24HR 22.3 mg capsule,d elayed release Take 1 capsule every day by oral route. 09/18 completed Not Available Not Available Not Available Tresiba FlexTouch U-100 insulin 100 unit/mL (3 mL) subcutane ous pen Inject 10 units every day by subcutan eous route at bedtime for 30 days. 03/09 completed Not Available Not Available Not Available TRUEplus Pen Needle 31 gauge x 5/16 USE 1 PEN NEEDLE 4 TIMES DAILY, BEFORE MEALS AND BEDTIME active Not Available Not Available No t Available TRUEplus Pen Needle 32 gauge x 5/32 USE DIRECTED INJECT INSULIN UP TO 4 TIMES DAILY active Not Available Not Available No t Available BD Ultra-Fin e Micro Pen Needle 32 gauge x 1/4 USE TO INJECT INSULIN 4 TIMES DAILY 2023 active Not Available Not Available Not Avai lable Dexcom G6 Transmitt er device USE DIRECTED CHANGE EVERY 3 MONTHS 01/23 completed Not Available Not Available Not Available OneTouch Ultra2 Meter USE 1 TO CHECK GLUCOSE THREE TIMES DAILY active Not Available Not Available No t Available OneTouch Delica Plus Lancet 33 gauge USE 1 TO CHECK GLUCOSE 4 TIMES DAILY BEFORE MEAL(S) active Not Available Not Available No t Available Baqsimi 3 mg/actuat ion nasal spray 01/23 completed Not Available Not Available Not Available Gvoke HypoPen 1-Pack 1 mg/0.2 mL subcutane ous auto-inje ctor INJECT 1 MG SUBCUTAN EOUSLY NEEDED active Not Available Not Available No t Available Semglee (insulin glargine- yfgn) Pen 100 unit/mL (3 mL) subcutane ous Inject by subcutan eous route for 72 days. 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 USE DIRECTED active Not Available Not Available No t Available Dexcom G7 Sensor device USE DIRECTED active Not Available Not Available No t Available Vitals Date Recorded Body height Body mass index (BMI) Body weight Heart rate Oxygen saturation Oxygen saturation in Arterial blood by Pulse oximetry Pain severity - 0-10 verbal numeric rating [Score] - Reported Body temperature Systolic blood pressure Diastolic blood pressure Provider Name and Address Organization Details Last Updated DateTime 5 152.4 cm 20.5 kg/m2 26074.2 g 72 /min 98 % 98 % 0 97.6 [degF] 112 mm[Hg] 60 mm[Hg] Judi Kemp MA [place] [facility] 5 09:58:13 Social History Question Answer Notes LastModified by Organizat ion Details LastModified Time Tobacco Smoking Status Current Every Day Smoker Not Available [facility] 12/31/2022 00:47:16 What Is Your Level Of Alcohol Consumption? None [id number] Information not available 12/31/2022 What Is Your Level Of Caffeine Consumption? Moderate [id number] Information not available 12/31/2022 In The 14 Days Before Symptom Onset, Have You Had Close Contact With A Laboratory-confi rmed COVID-19 While That Case Was Ill? No [id number] Information not available 12/31/2022 In The 14 Days Before Symptom Onset, Have You Had Close Contact With A Person Who Is Under Investigation For COVID-19 While That Person Was Ill? No [id number] Information not available 12/31/2022 Are You Currently Employed? No Information not available 01/23/2025 What Type Of Diet Are You Following? REGULAR Information not available 01/26/2023 Which Illicit Or Recreational Drugs Have You Used? No [id number] Information not available 12/31/2022 Have There Been Any Changes To Your Family Or Social Situation? No Information not available 01/23/2025 Do You Use Insect Repellent Routinely? No Information not available 01/23/2025 Where Do You Live? SingleLevelHouse Information not available 01/23/2025 What Was The Date Of Your Most Recent Tobacco Screening? 01/23/2025 Information not available 01/23/2025 How Many Children Do You Have? 4 Information not available 01/23/2025 Do You Have Any Pets? Yes Information not available 01/23/2025 What Is Your Relationship Status? Information not available 01/23/2025 Do You Use Your Seat Belt Or Car Seat Routinely? Yes [email or web address] Information not available 02/17/2023 Do You Have Smoke And Carbon Monoxide Detectors In Your Home? Yes Information not available 01/23/2025 At What Age Did You Start Smoking Tobacco? 22 [email or web address] Information not available 01/23/2025 Are You Passively Exposed To Smoke? Yes Information not available 01/23/2025 Are There Any Smokers In Your House? No Information not available 01/23/2025 How Much Tobacco Do You Smoke? 1 PPD [id number] Information not available 12/31/2022 Do You Participate In Social Media? Yes [email or web address] Information not available 02/17/2023 Do You Feel Stressed (tense, Restless, Nervous, Or Anxious, Or Unable To Sleep At Night)? [id number] [email or web address] Information not available 02/17/2023 Do You Use Any Illicit Or Recreational Drugs? No [email or web address] Information not available 02/17/2023 Do You Use Sunscreen Routinely? No Information not available 01/23/2025 Has Tobacco Cessation Counseling Been Provided? No [email or web address] Information not available 02/17/2023 How Many Years Have You Smoked Tobacco? 38 [email or web address] Information not available 01/23/2025 Have You Recently Traveled Abroad? No Information not available 01/23/2025 Are You Currently In School? No Information not available 01/23/2025 Do You Have Any Dietary Restrictions? No [email or web address] Information not available 01/26/2023 Sex: Unknown Functional Status Question Answer Note LastModified by Organizat ion Details LastModified Time What is your exercise level? Occasional [id number] Information not available 12/31/2022 Mental Status None recorded. Family History Relationship Description Onset Age of this Age Resolved Age Notes LastModified by Organization Details LastModified Time Father Hypertensive disorder [id number] Not available 12/31/2022 00:48:00 Father Diabetes mellitus [id number] Not available 12/31/2022 00:48:00 Father Dementia [id number] Not available 12/31/2022 00:48:00 Mother Diabetes mellitus [id number] Not available 12/31/2022 00:48:00 Sister Malignant tumor of breast [id number] Not available 12/31/2022 00:48:00 Medical History Condition Response DIABETES, TYPE Y FEMALE PROBLEMS / INFECTIONS Y HIGH CHOLESTEROL / HYPERLIPIDEMIA Y Gynecological History Statement/Question Response How many live births 4 Date of Last Pap Smear 11/07/2020 Current Control Method Tubal Ligat ion Most Recent Mammogram 08/29/2020 Date of LMP Obstetrics History GPAL:G 4 P 4 0 0 4 Type Value Multiple Births 0 Full Term 4 Induced 0 Spontaneous 0 Premature 0 Living 4 Ectopics 0 Total 4 Immunizations Vaccine Type Date Status Note Provider Nam e and Address Organization Details Recorded Time Tdap 5 completed Darlene John RN null, [facility] [employer] 01/23/2025 10:47:43 Influenza, split virus, quadrivalent, PF 3 completed Tessa Carreon RN null, [facility] [employer] 07/29/2023 15:32:25 COVID-19, mRNA, LNP-S, PF, 30 mcg/0.3 mL dose 1 completed Not Available [facility] 07/09/2023 00:57:52 COVID-19, mRNA, LNP-S, PF, 30 mcg/0.3 mL dose 1 completed Not Available [facility] 07/09/2023 00:57:52 COVID-19, mRNA, LNP-S, PF, 30 mcg/0.3 mL dose 1 completed Not Available [facility] 07/09/2023 00:57:52 Hep B, adult 3 completed Not Available [facility] 07/09/2023 00:57:52 Influenza, split virus, quadrivalent, PF 9 completed Not Available [facility] 07/09/2023 00:57:53 Influenza, split virus, quadrivalent, PF 8 completed Not Available [facility] 07/09/2023 00:57:53 pneumococcal polysaccharide PPV23 5 completed Not Available [facility] 07/09/2023 00:57:52 Influenza, split virus, quadrivalent, PF 2 completed Not Available [facility] 07/09/2023 00:57:52 Influenza, split virus, quadrivalent, PF 1 completed Not Available [facility] 07/09/2023 00:57:53 Tdap 5 completed Not Available [facility] 07/09/2023 00:57:52 Influenza, split virus, quadrivalent, PF 4 completed Not Available [facility] 07/09/2023 00:57:53 Influenza, split virus, quadrivalent, PF 0 completed Not Available [facility] 07/09/2023 00:57:53 Influenza, split virus, quadrivalent, PF 5 completed Not Available [facility] 07/09/2023 00:57:53 Influenza, split virus, quadrivalent, PF 7 completed Not Available [facility] 07/09/2023 00:57:53 Influenza, split virus, quadrivalent, preservative 6 completed Not Available [facility] 07/09/2023 00:57:52 Influenza, split virus, trivalent, PF 3 completed Not Available [facility] 07/09/2023 00:57:52 Past Encounters Encounter ID Performer Location Encounter Start Date Encounter Closed Date Diagnosis/Indication Diagnosis SNOMED-CT Code Diagnosis ICD10 Code Diagnosis Note [id number] MASTER Shabazz [facility] [address] [place] [address] 01/23/2025 09:48:26 01/23/2025 10:31:58 Adult health examination 135369900 Z00.00 Discussed medication compliance and routine follow up.Discuss ed healthy diet and routine exercise.Symone callejaswed vaccine records and made recommenda tions as needed.Enc ouraged annual eye and dental exams, as well as twice yearly dental cleanings. Will check screening labs as listed below. Administra tion of tetanus vaccine 566350782 Z23 Administra tion of pneumococcal vaccine 09990757 Z23 Alopecia 48673033 L65.9 Screening for malignant neoplasm of respiratory tract [id number] Z12.2 Z87.891 Health Concerns Section Related Observation LastModified by Organization Detai ls LastModified Time None Recorded Concern Status LastModified by Organization Details LastModified Time None Recorded Payers Encounter Date Sequence Insurance Name Policy Number Policy Garnett Covered Member ID Garnett Member ID Guarantor Name 01/23/2025 1 [facility] - DOS ON OR AFTER 21 (MEDICAID REPLACEMENT - HMO) Dara Marti [id number] Dara Marti Notes Date Note Type Note Provider Name and Address Organization Details Recorded Time 01/23/2025 text/html Patient is a 59 year old female that presents to the office for annual wellness. Patient reports she is doing well overall. Patient is concerned with recent hair loss over the last couple of months. Patient believes it is related to stress caused by her 's declining health. Recent thyroid labs were normal. labs- UTD (12/2024 by Dagmar)WWE- due (schedule 02/09 with OB)Mammogram- due (scheduled 03/29)Colonoscopy - UTDLDCT- ordered (1 ppd, 38 years)Flu- UTDCovid- UTDTdap- orderedShingles- UTDPneumonia- UTD MASTER [facility] [address] [facility] [facility] [address], [place], [address], [facility] [place] [facility] [employer] 01/23/2025 10:21:34 OBGyn Episode No OBEpisode recorded.
--- OUTSIDE RECORDS SUMMARY | 2025-01-24 16:18 | XMS_ITS | CONTINUITY OF CARE DOCUMENT ---
Author Name greg garza Address Unknown Organization [facility] Address [address] [place] [address] Phone [phone] Care Team Providers Care Plant Technician Name Role Phone Raul ASHFORD, Pedro Unavailable KINGA ODEN MD Unavailable [phone] MIHAELA PORTER MD Unavailable [phone] PROBLEMS Condition Status Date Provider Notes Diabetes mellitus active Pedro Carter MD Hypertension--echo ef 65%, m ild TR, MR, 12/2020 active Davy Dee Chest pain nl echo and stress nuclear 01/20 active 2020 Pedro Carter MD Tobacco abuse active Subhash C [place] Hyperlipidemia active Subhash C [place] ENCOUNTERS Date Type Provider Location Encounter Diag nosis - In-person encounter Office Visit Pedro Carter MD [facility] - In-person encounter Office Visit Pedro Carter MD [facility] - In-person encounter Office Visit Pedro Carter MD [facility] - In-person encounter Office Visit Pedro Carter MD [facility] Hypertension--echo ef 65%, mild TR, MR, 12/2020 - In-person encounter Office Visit Pedro Carter MD [facility] - In-person encounter Office Visit Pedro Carter MD [facility] Chest pain nl echo and stress nuclear 01/20Tobacco abuseHyperlipidemia VITAL SIGNS Date Observation Value Provider Body Mass Index (Ratio) 20.70 kg/m2 Jonathan Carter MD respiratory rate E&M 17 /min Shelly Diamante truongcorrine blood pressure, diastolic 71 mm[Hg] Iva rhonda Barroso blood pressure, systolic 118 mm[Hg] Any kylee Barroso pulse rate 74 /min Shelly Barroso oxygen saturation, oximetry 98 % Shelly Barroso blood pressure, cuff size large Iva rhonda Barroso weight E&M 106 [lb_av] Shelly Barroso height E&M 60 [in_i] Shelly Barroso Body Mass Index (Ratio) 18.55 kg/m2 Jonathan Carter MD blood pressure, cuff size small Mt jairo [place] blood pressure, diastolic 72 mm[Hg] Thais gill [place] blood pressure, systolic 100 mm[Hg] Vitaly yolande [place] oxygen saturation, oximetry 97 % [place] respiratory rate E&M 16 /min Cherelle whipple [place] pulse rate 89 /min [place] weight E&M 95 [lb_av] [place] height E&M 60 [in_i] Sun ebach Body Mass Index (Ratio) 18.36 kg/m2 Jonathan Carter MD blood pressure, diastolic 60 mm[Hg] Sa ra Moreno blood pressure, systolic 90 mm[Hg] Lan a Moreno oxygen saturation, oximetry 98 % Jinny Moreno respiratory rate E&M 18 /min Jinny Si ms pulse rate 90 /min Jinny Moreno blood pressure, cuff size small Sa ra Moreno weight E&M 94 [lb_av] Jinny Moreno height E&M 60 [in_i] Jinny Moreno Body Mass Index (Ratio) 19.33 kg/m2 Jonathan Carter MD blood pressure, cuff size small Ke rri Alvinwiley blood pressure, diastolic 70 mm[Hg] Ke rri Varinder blood pressure, systolic 130 mm[Hg] Michael irene Varinder oxygen saturation, oximetry 98 % Kaylyn Varinder respiratory rate E&M 16 /min Kaylyn solorzano pulse rate 82 /min Kaylyn Natacha lder weight E&M 99 [lb_av] Kaylyn Natacha lder height E&M 60 [in_i] Kaylyn Natacha lder ALLERGIES No Known Drug Allergies RESULTS Date Observation Value Provider Reference Range Interpretation Location 1 hemoglobin A1C, blood, as % of total hemoglobin 7.1 % [facility] 1 LDL cholesterol, serum 48 mg/dL [facility] HISTORY OF MEDICATION USE Medication Status Instructions Dates Provider Indications Com ments lisinopril 2.5 mg tablet active Take 1 tablet by mouth once a day DUE FOR FOLLOW UP Kaylyn Reeder lisinopril 2.5 mg tablet completed Take 1 tablet by mouth once daily - Kaylyn Reeder Wellbutrin XL 150 mg tablet extended release 24 hr active Take 1 tablet by mouth every morning Davy Dee lisinopril 2.5 mg tablet completed 1 tablet once a day - Davy Dee OMEGA 3 CAPSULE DELAYED RELEASE active Davy Dee aspirin 81 mg tablet,delayed release (DR/EC) active 1 tablet by mouth once a day Davy Ferrerazai Lipitor 40 mg tablet active 1 tablet once a day Kaylyn Varinder insulin lispro 100 unit/mL insulin pen active 3 unit three times a day Kaylyn Varinder LANTUS SOLUTION active 10 unit every night Kaylyn Varinder MULTIVITAMINS ORAL CAPSULE active 1 tablet once a day Kaylyn Varinder SOCIAL HISTORY Date Observation Value Provider smoking/tobacco cess ation, patient education and counseling yes Davy Dee number of years as a smoker 30 a Davy Dee smoking history, tot al pack/day 1 Davy Dee cigarette use yes Davy Dee smoking status Current every day smoker R javi Dee Underweight no Pedro Carter MD social history E&M S moking History: P chauncey currently smokes every day. P chauncey has been counseled to quit. Davy Dee smoking/tobacco cess ation, patient education and counseling yes Shelly Barroso number of years as a smoker 30 a Shelly Dharmesh smoking history, tot al pack/day 1 Shelly Barroso cigarette use yes Shelly Barroso smoking status Current every day smoker A michael Dharmesh social history reviewed E&M revi ewed - no changes required Davy Dee Underweight yes Pedro Carter MD smoking/tobacco cess ation, patient education and counseling yes [place] number of years as a smoker 30 a [place] smoking history, tot al pack/day 1 [place] cigarette use yes Sun [place] smoking status Current every day smoker M ebenezer Nettles social history reviewed E&M revi ewed - no changes required Davy Dee Underweight yes Pedro Carter MD social history reviewed E&M revi ewed - no changes required Davy Dee smoking/tobacco cess ation, patient education and counseling yes Price Sylvester social history E&M Smoking Histo ry: P atient currently smokes every day. P atient has been counseled to quit. Price Sylvester social history reviewed E&M revi ewed - no changes required Price Sylvester number of years as a smoker 30 a Price Sylvester smoking history, tot al pack/day 1 Price Sylvester cigarette use yes Price [place] smoking status Current every day smoker A treasure Sylvester number of grandchildren Pedro Robb social history E&M S moking History: P atient currently smokes every day. Subhash Robb social history reviewed E&M revi ewed - no changes required Subhash Robb number of years as a smoker 30 a Kaylyn Varinder smoking history, tot al pack/day 1 ppd Kaylyn Esquivelwiley cigarette use yes Kaylyn Sharif marino smoking status Current every day smoker K umair Varinder INSURANCE PROVIDERS Payer name Policy type / Coverage type [facility] ID [employer] (2) Medicaid [id number] ADVANCE DIRECTIVES Name Date DISCUSSED - NO DECISION MADE TREATMENT PLAN Date Name Performer [id number],S, Davy Mcgee i [id number],S, Davy Mcgee i [id number],S, Davy Mcgee i [id number],S, Davy Mcgee i [id number],S, Davy Mcgee i [id number],B, Davy Ahmedza i [id number],S, Davy Ahmedza i [id number],S, Davy Ahmedza i [id number],S, Davy Ahmedza i [id number],S, Davy Ahmedza i [id number],B, Davy Ahmedza i [id number],S, Davy Ahmedza i [id number],S, Davy Ahmedza i Cardiology Davy Ahmedzai Cardiology Davy Ahmedzai Cardiology Davy Ahmedzai Cardiology Davy Ahmedzai Cardiology Davy Ahmedzai Cardiology Davy Ahmedzai Cardiology Davy Ahmedzai Cardiology Davy Ahmedzai Cardiology Davy Ahmedzai Cardiology Davy Ahmedzai Cardiology Davy Ahmedzai Cardiology Davy Ahmedzai Cardiology Davy Ahmedzai Cardiology New Patient Pedro spencer MD Cardiology New Patient :Epigastr ic region, occurs at rest Subhash Devon Robb Cardiology New Patient Subhash C Be atty Cardiology New Patie nt : B P today: 130/70 Subhash Devon Robb Date Name Stress Regadenoson Complete Echo HISTORY OF PROCEDURES Procedure Date Procedure Name Provider Procedure Notes S tatus EKG Pedro Carter MD completed
--- OUTSIDE RECORDS SUMMARY | 2025-01-24 16:19 | XMS_ITS | Clinical Summary ---
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 Not on file Not on file Last Filed Vital Signs Vital Sign Reading Time Taken Comments Blood Pressure 112/64 12/01/2018 1:03 PM [employer]GER [employer] Pulse 86 12/01/2018 1:03 PM [employer]GER [employer] Temperature 36.6 C (97.9 F) 12/01/2018 1:03 PM [employer] Respiratory Rate 18 12/01/2018 1:03 PM [employer]GER [employer] Oxygen Saturation 98% 12/01/2018 1:03 PM [employer]NAGER [employer] Inhaled Oxygen Concentration - - Weight 42.6 kg (94 lb) 12/01/2018 1:03 PM [employer]GER [employer] Height 149.9 cm (4' 11 ) 12/01/2018 1:03 PM MANAGER DI[employer] Body Mass Index 18.99 12/01/2018 1:03 PM MANAGER DIABETES Plan of Treatment Health Maintenance Due Date Last Done Comments Hepatitis C Virus (HCV) Screening 1967 Hepatitis B Immunization (1 of 3 - 19+ 3-dose series) 1986 Colonoscopy 2012 Colorectal Cancer Screening 2012 Cologuard 2017 Immunochemical Fecal Occult Blood 2017 Pneumococcal Immunization (50+ years) (2 of 2 - PCV) 2017 08/20/2015 Zoster Immunization (1 of 2) 2017 Influenza Immunization (#1) 07/03/202409/02, 09/18/2016, 08/20/2015, Additional history exists SARS-COV-2 Immunization (2023- season) 2024 08/13/2021, 01/18/2021, 12/28/2020 Respiratory Syncytial [...] Insurance MEDICAID [employer] Care Teams Medical Services Manager Relationship Specialty Start Date End Date Sania Preciado MD [address] [place] [address] PCP - General Family Medicine 09/29/18
--- OUTSIDE RECORDS SUMMARY | 2025-01-24 16:19 | XMS_ITS | Clinical Summary ---
Author Organization [facility] Address [address] [place] [address] Care Team Providers Care Finishing Room Supervisor Name Role Phone Sania Preciado MD Primary Care Provider [phone] Social History Tobacco Use Types Packs/Day Years [...] age to complete this topic Care Teams Finishing Room Supervisor Relationship Specialty Start Date End Date Sania Preciado MD [address] [place] [address] [place] [address] PCP - General 11/28/15
== END 2025-01-24 13:57 | disposition home or self-care (01) ==
LOC: ANHLAB 13:57
PROVIDERS: PCP Nurse Practitioner Family; Visit Provider Internal Medicine Endocrinology, Diabetes & Metabolism
DX: E11.9 Type 2 diabetes mellitus without complications (principal); L65.9 Nonscarring hair loss, unspecified; Z79.4 Long term (current) use of insulin
CPT/HCPCS: 36415; 82728; 83540; 83550; 85027

== ENCOUNTER 2025-02-01 13:50 | Outpatient (CLI) | payer OTHER, SELFPAY ==
--- NOTE | ~2025-02-01 | CT_ITS ---
CT Scan of the Chest without Contrast: Clinical Indication: Lung cancer screening, nicotine dependence Technique: Contiguous sections were acquired throughout the chest without intravenous contrast. Dose reduction technique was used on this scan by utilizing automated exposure control and iterative recon struction technique. The dose-length product (DLP) was 57.16 mGy-cm. Findings: There is no evidence of any significant mediastinal, hilar or axillary lymphadenopathy. The mediastin al soft tissues appear normal. There is no evidence of pleural or pericardial effusion. 2 mm left lower lobe pulmonary nodule present (axial image 80). There is linear scarring in the right middle lobe. Images through the upper abdomen reveal no abnormalities. Impression: Lung RADS 2: Benign appearance. 12 month follow-up screening CT advised. Reviewed, dictated and finalized at location . Impression: Lung RADS 2: Benign appearance. 12 month follow-up screening CT advised.
--- OUTSIDE RECORDS SUMMARY | 2025-02-01 15:13 | XMS_ITS | CONTINUITY OF CARE DOCUMENT ---
Author Name greg, greg Address Unknown Organization [facility] Address [address] [address] [place] [address] Phone [phone] Care Team Providers Care Health Specialist Name Role Phone Raul ASHFORD, Pedro Unavailable [phone] KINGA ODEN MD Unavailable [phone] MIHAELA PORTER MD Unavailable [phone] PROBLEMS Condition Status Date Provider Notes Diabetes mellitus active Pedro Carter MD Hypertension--echo ef 65%, m ild TR, MR, 12/2020 active Davy Dee Chest pain nl echo and stress nuclear 01/20 active 2020 Pedro Carter MD Tobacco abuse active Subhash C [place] Hyperlipidemia active Subhash C [place] ENCOUNTERS Date Type Provider Location Encounter Diag nosis - In-person encounter Office Visit Pedro Carter MD [facility] - In-person encounter Office Visit Pedro Carter MD [facility] - In-person encounter Office Visit Pedro Carter MD [facility] - In-person encounter Office Visit Pedro Carter MD [facility] Hypertension--echo ef 65%, mild TR, MR, 12/2020 - In-person encounter Office Visit Pedro Carter MD [facility] - In-person encounter Office Visit Pedro Carter MD [facility] Chest pain nl echo and stress [...] Carter MD blood pressure, cuff size small Al jairo [place] blood pressure, diastolic 72 mm[Hg] Thais gill [place] blood pressure, systolic 100 mm[Hg] [facility] yolande [place] oxygen saturation, oximetry 97 % [place] respiratory rate E&M 16 /min Cherelle whipple [place] pulse rate 89 /min [place] weight E&M 95 [lb_av] [place] height E&M 60 [in_i] [place] Body Mass Index (Ratio) 18.36 kg/m2 Jonathan [...] as % of total hemoglobin 7.1 % [facility] 1 LDL cholesterol, serum 48 mg/dL [facility] HISTORY OF MEDICATION USE Medication Status Instructions [...] Payer name Policy type / Coverage type On license of [facility] ID [employer] (2) Medicaid [id number] ADVANCE DIRECTIVES Name Date DISCUSSED - NO DECISION MADE TREATMENT PLAN Date Name Performer [id number],S, Davy Mcgee i [id number],S, Davy Mcgee i [id number],S, Davy Mcgee i [id number],S, Davy Mcgee i [id number],S, Davy Mcgee i [id number],B, Davy Ahmedza i [id number],S, Davy Ahmedza i [id number],S, Davy Ahmedza i [id number],S, Davy Ahmedza i [id number],S, Davy Ahmedza i [id number],B, Davy Ahmedza i [id number],S, Davy Ahmedza i [id number],S, Davy Ahmedza i Cardiology Davy Ahmedzai Cardiology [...]
--- OUTSIDE RECORDS SUMMARY | 2025-02-01 15:13 | XMS_ITS | Clinical Summary ---
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 Not on file Not on file Last Filed Vital Signs Vital Sign Reading Time Taken Comments Blood Pressure 112/64 12/01/2018 1:03 PM [employer]IDENTIAL [employer]ERTY [employer] AP[employer]ER Pulse 86 12/01/2018 1:03 PM RESIDENTIAL PROPERTY TAX APPRAISER Temperature 36.6 C (97.9 F) 12/01/2018 1:03 PM RESIDENTIAL PROPERTY TAX APPRAISER Respiratory Rate 18 12/01/2018 1:03 PM RESIDENTIAL PROPERTY TAX APPRAISER Oxygen Saturation 98% 12/01/2018 1:03 PM RESIDENTIAL PROPERTY TAX APPRAISER Inhaled Oxygen Concentration - - Weight 42.6 kg (94 lb) 12/01/2018 1:03 PM RESIDENTIAL PROPERTY TAX APPRAISER Height 149.9 cm (4' 11 ) 12/01/2018 1:03 PM RESIDENTIAL PROPERTY TAX APPRAISER Body Mass Index 18.99 12/01/2018 1:03 PM RESIDENTIAL PROPERTY TAX APPRAISER Plan of Treatment Health Maintenance Due Date [...] Insurance MEDICAID [employer] Care Teams Long Wall Mining Machine Helper Relationship Specialty Start Date End Date Sania Preciado MD [address] [place] [address] PCP - General Family Medicine 09/29/18
--- OUTSIDE RECORDS SUMMARY | 2025-02-01 15:13 | XMS_ITS | Data Portability ---
Author Organization [place] - [facility] [employer], Main Office Address [address] [place] [address] Assessment No assessment recorded. Plan of Treatment Reminders Order Date Submit Date Provider Last Modified By Organization Details Last Modified Time Details Appointments Follow Up 30 2024 01:30P Blair Guillory NP Not available Not available Not available Lab Hepatitis C IgG Ab, qual, serum 2023 024 [facility] ([facility]), [address] [place], [address], 08/05/2024 19:29:42 TSH, serum or plasma 2023 024 [facility] ([facility]), [address] [place], [address], 01/19/2024 17:44:11 T4, free, serum 2023 024 [facility] ([facility]), [address] [place], [address], 01/19/2024 17:25:59 lipid panel, serum [address] ([facility]), [address] [place], [address], 12/04/2023 14:14:48 TSH, serum, reflex free T4 [address] ([facility]), [address] [place], [address], 12/04/2023 14:15:18 HbA1c (hemoglob in A1c), blood [address] ([facility]), [address] [place], [address], 12/04/2023 14:15:47 CBC [address] ([facility]), [address] [place], [address], 12/04/2023 14:16:19 BMP, serum or plasma [address] ([facility]), [address] [place], [address], 12/04/2023 14:18:38 hepatic function panel, serum [address] ([facility]), [address] [place], [address], 12/04/2023 14:19:18 hepatitis C virus Ab, serum [address] ([facility]), [address] [place], [address], 12/04/2023 14:20:38 Referral dermatolo gist referral - Please call patient to schedule an appointme nt. Thank you. 2024 025 [facility], [facility] [place], [address], 01/23/2025 11:44:12 gynecolog ist referral - Please call patient to schedule appointme nt. 2023 024 [email or web address] Taylor Meraz MD, [address], [address], [place], [address], 01/05/2024 09:08:52 Procedures None recorded. Surgeries None recorded. Imaging LDCT, chest, for lung cancer screening 2024 025 [facility], [address], [place], [address], 01/23/2025 11:30:48 Medication Orders lisinopri l 2.5 mg tablet 2023 024 [facility], [address] [facility], [place], [address], 08/04/2024 11:09:36 Patient TargetsNo targets recorded. Patient InstructionsNo instructions recorded. Reason for Referral [employer] De[employer] Referral for Re ferral needed pt is needing pap Please call patient to schedule appointment. Referring Physician: [facility], Encounter Date: 12/04/2023 [facility] Referral for A lopecia Please call patient to schedule an appointment. Thank you. Referring Physician: [facility], Encounter Date: 01/23/2025 Results Created Date Observation Date Name Description Value Unit Range Abnormal Flag Note LastModifiedBy Organization Detail LastModifiedTime 01/18/20 24 01/19/2024 T4 FREE free T4 1.18 NG/dL 0.78-2 .19 Not Available [facility] (Lab) [address] [place], [address], 01/19/2024 17:25:59 01/18/20 24 01/19/2024 TSH thyroid-stim ulating hormone 1.110 uIU/m L 0.465- 4.680 Not Available [facility] (Lab) [address] [place], [address], 01/19/2024 17:44:11 01/29/20 24 01/28/2024 MAMMO , scree tana, digit al, bilat eral No observ ation record ed. [email or web address], [place], [address], 03/18/2024 13:51:20 Result Notes None recorded. Problems Name Problem SNOMED Code Status Onset Date Resolution Date Notes Provider Name and Address Organization Details Recorded Time Tobacco user 278080478 Active Not Available [facility] 3 00:57:51 Amenorrhea 01866865 Active Not Available [facility] 3 00:57:51 Acquired trigger finger 8417936 Active Not Available [facility] 3 00:57:51 Increased frequency of urination 883118775 Active Not Available [facility] 3 00:57:51 Anti-nucle ar factor detected 490132481 Active 2021 Not Available [facility] 3 00:57:51 Thyroid hormone tests outside reference range 052875759 Active Not Available [facility] 3 00:57:51 Liver function tests outside reference range 926857624 Active Not Available [facility] 3 00:57:51 Lateral epicondyli tis 131697254 Active Not Available [facility] 3 00:57:51 Abdominal pain 61932495 Active Not Available [facility] 3 00:57:51 Malaise and fatigue 806076099 Active Not Available [facility] 3 00:57:51 Toothache 28065834 Active Not Available [facility] 3 00:57:51 Right lower quadrant pain 282529421 Completed Not Available [facility] 3 00:53:43 Dyslipidem ia 225937877 Active 2021 Not Available [facility] 3 00:57:51 Pelvic congestion syndrome 83584363 Active Not Available [facility] 3 00:57:51 Onychomyco sis 201255179 Active Not Available [facility] 3 00:57:51 Latent autoimmune diabetes mellitus in adult 028111476 Active 2021 Not Available [facility] 3 00:57:51 Infection of tooth 337313849 Active Not Available [facility] 3 00:57:51 Uncontroll ed type 2 diabetes mellitus 057585275 Active 2021 Not Available [facility] 3 00:57:51 Hip pain 61264395 Active Not Available [facility] 3 00:57:51 Cough 20307577 Active Not Available [facility] 3 00:57:51 Hyperlipid emia 32825130 Active Not Available [facility] 3 00:57:51 Urinary tract infectious disease 24243702 Active Not Available [facility] 3 00:57:51 Dyspareuni a 18512638 Active Not Available [facility] 3 00:57:51 Diabetes mellitus 94743670 Active Not Available [facility] 3 00:57:51 Cyst of ovary 70680482 Active Not Available [facility] 3 00:57:51 Neck pain 01510222 Active Not Available [facility] 3 00:57:51 Fatigue 93073653 Active Not Available [facility] 3 00:57:51 Bacterial infectious disease 43904391 Completed Not Available [facility] 3 00:53:44 Type 2 diabetes mellitus 08148638 Active 2022 Not Available [facility] 3 00:57:51 Sleep related bruxism 333878875 Active 2022 Not Available [facility] 3 00:57:51 Insomnia 739250443 Active 2022 Sania Preciado MD [address], [address], [address] , [employer] [facility] [employer] 3 15:23:51 Thyroid function tests abnormal 601325112 Active 2023 Sania Preciado MD [address], [place] [address], [place], [address] , [employer] [facility] [employer] [facility] 4 09:45:42 Essential hypertensi on 79866266 Active 2023 [employer] [address], [address], [place], [address] , [employer] [facility] [employer] [facility] 4 11:08:09 Alopecia 65882514 Active 2024 [employer] [address], [address], [place], [address] , [employer] [facility] [employer] [facility] 10:16:32 Problem Notes None recorded. Procedures Surgical History Date Name Laterality Status Provider Name and Address Organization Details Recorded Time 021 Date of Last Pap Smear completed Not Available [facility] 12/31/2022 00:47:55 REPLENISHER Procedure completed Not Available [facility] 12/31/2022 00:47:57 Most Recent Mammogram completed Not Available [facility] 12/31/2022 00:47:55 016 colonoscopy completed Not Available [facility] 12/31/2022 00:47:57 Gastrointestinal Surgery completed Not Available [facility] 12/31/2022 00:47:57 Tubal Ligation completed Not Available [facility] 12/31/2022 00:47:57 delivery completed Not Available [facility] 12/31/2022 00:47:57 Imaging Results Imaging Date Name Status LastModified by Organiz ation Details LastModified Time 01/28/2024 MAMMO, screening, digital, bilateral completed [address], [place], [address], 03/18/2024 13:51:20 Procedure Notes None recorded. Medical Equipment None [...] mg tablet TAKE ONE TABLET BY MOUTH qhs 12/21 completed Not Available Not Available Not [...] e 50 mcg/actua tion nasal spray,tari pension [place] 1 spray every day by intranas al [...] e Micro Pen Needle 32 gauge x /4 USE TO INJECT INSULIN 4 TIMES DAILY 2023 active Not Available Not Available Not Avai jordyn Dexcom G6 Transmitt er device USE DIRECTED [...] Not Available No t Available Dexcom G7 Luster Repairer USE DIRECTED active Not Available Not Available No t Available Dexcom G7 Sensor device USE DIRECTED active Not Available Not Available No t Available Vitals Date Recorded Body height Body mass index (BMI) Body weight Body temperature Heart rate Oxygen saturation Oxygen saturation in Arterial blood by Pulse oximetry Systolic blood pressure Diastolic blood pressure Provider Name and Address Organization Details Last Updated DateTime 4 152.4 cm 19.7 kg/m2 61203.8 3 g 97.2 [degF] 78 /min 98 % 98 % 138 mm[Hg] 70 mm[Hg] Stella Almeida RN [facility] [employer] 4 12:00:09 Date Recorded Body height Body mass index (BMI) Body weight Body temperature Oxygen saturation Oxygen saturation in Arterial blood by Pulse oximetry Heart rate Systolic blood pressure Diastolic blood pressure Provider Name and Address Organization Details Last Updated DateTime 4 152.4 cm 19.5 kg/m2 05635.2 4 g 97.2 [degF] 98 % 98 % 82 /min 102 mm[Hg] 64 mm[Hg] Tessa Carreon RN [place] [facility] 4 09:30:00 Date Recorded Body height Body mass index (BMI) Body weight Body temperature Heart rate Oxygen saturation Oxygen saturation in Arterial blood by Pulse oximetry Systolic blood pressure Diastolic blood pressure Provider Name and Address Organization Details Last Updated DateTime 4 152.4 cm 18.7 kg/m2 24995.8 7 g 98 [degF] 74 /min 96 % 96 % 98 mm[Hg] 60 mm[Hg] Tessa Carreon RN [facility] [employer] [facility] 4 12:43:58 Date Recorded Body height Body mass index (BMI) Body weight Body temperature Heart rate Oxygen saturation Oxygen saturation in Arterial blood by Pulse oximetry Systolic blood pressure Diastolic blood pressure Provider Name and Address Organization Details Last Updated DateTime 4 152.4 cm 19.9 kg/m2 04707.4 2 g 98 [degF] 88 /min 97 % 97 % 104 mm[Hg] 68 mm[Hg] Tessa Carreon RN [facility] [employer] [facility] 4 10:53:57 Date Recorded Body height Body mass index (BMI) Body weight Heart rate Oxygen saturation Oxygen saturation in Arterial blood by Pulse oximetry Pain severity - 0-10 verbal numeric rating [Score] - Reported Body temperature Systolic blood pressure Diastolic blood pressure Provider Name and Address Organization Details Last Updated DateTime 5 152.4 cm 20.5 kg/m2 50221.2 g 72 /min 98 % 98 % 0 97.6 [degF] 112 mm[Hg] 60 mm[Hg] Judi Kemp MA [facility] [employer] [facility] 5 09:58:13 Social History Question Answer Notes LastModified by Organizat ion Details LastModified Time Tobacco Smoking Status Current Every Day Smoker Not Available [employer] 12/31/2022 00:47:16 What Is Your Level Of Alcohol Consumption? None [id number] Information not available 12/31/2022 What Is Your Level Of Caffeine Consumption? Moderate [id number] Information not available 12/31/2022 In The 14 Days Before Symptom Onset, Have You Had Close Contact With A Laboratory-adam alvarez COVID-19 While That Case Was Ill? No [id number] Information not available 12/31/2022 In The 14 Days Before Symptom Onset, Have You Had Close Contact With A Person Who Is Under Investigation For COVID-19 While That Person Was Ill? No [id number] Information not available 12/31/2022 Are You Currently Employed? No Information not available 01/23/2025 What Type Of Diet Are You Following? REGULAR [email or web address] Information not available 01/26/2023 Which Illicit Or Recreational Drugs Have You Used? No [id number] Information not available 12/31/2022 Have There Been [...] Seat Belt Or Car Seat Routinely? Yes Information not available 02/17/2023 Do You Have Smoke And Carbon Monoxide Detectors In Your Home? Yes Information not available 01/23/2025 At What Age Did You Start Smoking Tobacco? 22 [email or web address] Information not available 01/23/2025 Are You Passively Exposed To Smoke? Yes Information not available 01/23/2025 Are There Any Smokers In Your House? No Information not available 01/23/2025 How Much Tobacco Do You Smoke? 1 PPD [id number] Information not available 12/31/2022 Do You Participate In Social Media? Yes Information not available 02/17/2023 Do You Feel Stressed (tense, Restless, Nervous, Or Anxious, Or Unable To Sleep At Night)? [id number] [email or web address] Information not available 02/17/2023 Do You Use Any Illicit Or Recreational Drugs? No [email or web address] Information not available 02/17/2023 Do You Use Sunscreen Routinely? No Information not available 01/23/2025 Has Tobacco Cessation Counseling Been Provided? No [email or web address] Information not available 02/17/2023 How Many Years Have You Smoked Tobacco? 38 [email or web address] Information not available 01/23/2025 Have You Recently Traveled Abroad? No Information not available 01/23/2025 Are You Currently In School? No Information not available 01/23/2025 Do You Have Any Dietary Restrictions? No [email or web address] Information not available 01/26/2023 Sex: Unknown Functional Status Question Answer Note LastModified by Organizat ion Details LastModified Time What is your exercise level? Occasional [id number] Information not available 12/31/2022 Mental Status None recorded. Family History Relationship Description Onset Age of this Age Resolved Age Notes LastModified by Organization Details LastModified Time Father Hypertensive disorder [id number] Not available 12/31/2022 00:48:00 Father Diabetes mellitus [id number] Not available 12/31/2022 00:48:00 Father Dementia [id number].067 [id number] Not available 12/31/2022 00:48:00 Mother Diabetes mellitus [id number] [id number] Not available 12/31/2022 00:48:00 Sister Malignant tumor of breast MIGRATION.577 [id number] Not available 12/31/2022 00:48:00 Medical History Condition Response DIABETES, TYPE Y HIGH CHOLESTEROL / HYPERLIPIDEMIA Y FEMALE PROBLEMS / INFECTIONS Y Gynecological History Statement/Question Response How many [...] Tdap 5 completed Darlene John RN null, [facility] [employer] 01/23/2025 10:47:43 Influenza, split virus, quadrivalent, PF 3 completed CINTHIA Nicholson, [facility] [employer] [facility] 07/29/2023 15:32:25 COVID-19, mRNA, LNP-S, PF, 30 mcg/0.3 mL dose 1 completed Not Available [facility] 07/09/2023 00:57:52 COVID-19, mRNA, LNP-S, PF, 30 mcg/0.3 mL dose 1 completed Not Available [facility] 07/09/2023 00:57:52 COVID-19, mRNA, LNP-S, PF, 30 mcg/0.3 mL dose 1 completed Not Available [facility] 07/09/2023 00:57:52 Hep B, adult 3 completed Not Available [facility] 07/09/2023 00:57:52 Influenza, split virus, quadrivalent, PF 9 completed Not Available [facility] 07/09/2023 00:57:53 Influenza, split virus, quadrivalent, PF 8 completed Not Available [facility] 07/09/2023 00:57:53 pneumococcal polysaccharide PPV23 5 completed Not Available [facility] 07/09/2023 00:57:52 Influenza, split virus, quadrivalent, PF 2 completed Not Available [facility] 07/09/2023 00:57:52 Influenza, split virus, quadrivalent, PF 1 completed Not Available [facility] 07/09/2023 00:57:53 Tdap 5 completed Not Available [facility] 07/09/2023 00:57:52 Influenza, split virus, quadrivalent, PF 4 completed Not Available [facility] 07/09/2023 00:57:53 Influenza, split virus, quadrivalent, PF 0 completed Not Available [facility] 07/09/2023 00:57:53 Influenza, split virus, quadrivalent, PF 5 completed Not Available [facility] 07/09/2023 00:57:53 Influenza, split virus, quadrivalent, PF 7 completed Not Available [facility] 07/09/2023 00:57:53 Influenza, split virus, quadrivalent, preservative 6 completed Not Available [facility] 07/09/2023 00:57:52 Influenza, split virus, trivalent, PF 3 completed Not Available [facility] 07/09/2023 00:57:52 Past Encounters Encounter ID Performer Location Encounter Start Date Encounter Closed Date Diagnosis/Indication Diagnosis SNOMED-CT Code Diagnosis ICD10 Code Diagnosis Note [id number] _FORREST_M IGRATION_ DEFAULT_1 _1 , 01/16/2021 00:00:00 01/16/2021 19:50:12 [id number] [facility] [place] [address] [place] [address] 02/28/2021 00:00:00 02/28/2021 09:21:11 [id number] [facility] [place] [address] [place] [address] 03/18/2021 00:00:00 03/18/2021 15:19:31 [id number] [facility] [place] [address] [place] [address] 07/22/2021 00:00:00 07/22/2021 13:24:23 [id number] [facility] [place] [address] [place] [address] 07/29/2021 00:00:00 07/29/2021 16:08:13 [id number] [facility] [place] [address] [place] [address] 08/13/2021 00:00:00 08/13/2021 18:34:54 [id number] [facility] [place] [address] [place] [address] 09/09/2021 00:00:00 09/09/2021 16:36:11 [id number] [facility] [place] [address] [place] [address] 01/15/2022 00:00:00 01/15/2022 11:18:13 [id number] [facility] [place] [address] [place] [address] 01/27/2022 00:00:00 01/27/2022 14:52:17 [id number] [facility] [place] [address] [place] [address] 03/18/2022 00:00:00 04/01/2022 08:17:26 [id number] [facility] [place] [address] [place] [address] 04/28/2022 00:00:00 04/28/2022 19:35:26 [id number] [facility] [place] [address] [place] [address] 04/29/2022 00:00:00 05/01/2022 08:44:03 [id number] [facility] [place] [address] [place] [address] 05/09/2022 00:00:00 05/09/2022 14:09:20 [id number] [facility] [place] [address] [place] [address] 06/25/2022 00:00:00 06/30/2022 17:54:59 [id number] [facility] [place] [address] [place] [address] 07/29/2022 00:00:00 07/29/2022 18:25:01 [id number] [facility] [place] [address] [place] [address] 08/22/2022 00:00:00 08/22/2022 15:39:09 [id number] [facility] [place] [address] [place] [address] 11/11/2022 00:00:00 11/11/2022 16:22:05 [id number] Bela Gore MD [facility] [place] [address] [place] [address] 01/05/2023 14:12:02 01/05/2023 14:56:50 Latent autoimmune diabetes mellitus in adult 685410589 E13.9 A1C not completed was under 7% at last visit- she is taking once daily lantus and not lasting full 24 hours. Will transition to twice daily lantus 5 units in morning and 7 units at bedtime and patient advised to titrate up by 1 unit every 4 days until fasting glucose is running 90-120 mg/dL consistent ly. She was advised to follow a 1:10 carb ratio for her meals if she is eating a starchy carb diet in addition to correction of 1U:50>150 mg/dl on premeal FS prior to meals. Continue with dexcom sensor. Dyslipidemia 449065321 E 78.5 Send for lipid and thyroid panel to monitor. Anti-nucle ar factor detected 647933863 R76.8 Refer to rheumatolo gy as she has continued bilateral knee/hip/a nkle pain- had x rays done at [place] needs a follow up to review with provider. Spent up to 25 minutes preparing to see the patient (eg, review of tests), obtaining and/or reviewing separately obtained history, performing a medically appropriat e examinatio n and evaluation , counseling and educating the patient, ordering medication s, tests, along with documentin g clinical informatio n in the electronic health record, independen tly interpreti ng results and communicat ing results to the patient. RTC in 6 months. Patient was provided a handwritte n lab order which contains our fax number. If she chooses to go outside of the [facility] system to obtain labwork she was advised to provide our fax number and my informatio n to the lab she will be obtaining labwork from in order to have her labs properly forwarded over for me to review so there is no loss of follow up due to use of outside network. She was also advised to contact our clinic informing us that she has completed her labwork so we are aware we will need to reach out to the appropriat e laboratory to request her results be forwarded to us so I might have the ability to review and make further medical decision making in her case. She voiced understand ing. [id number] Sania Preciado MD [facility] [place] [address] [facility] [address] [place] [address] 01/26/2023 14:52:50 01/26/2023 15:31:24 Type 2 diabetes mellitus 97208369 E11.[address] Goreweight stablef/u in 6 months or sooner if needed [id number] KOLE Yin [facility] [address] [facility] [address] [place] [address] 02/17/2023 11:49:12 02/17/2023 14:12:25 Sleep related bruxism 120090426 G47.63 Advised she try wearing dental guard at night. Will also add on muscle relaxer for jaw pain.I have also advised she f/u with dentist, has not been in 4 years. [id number] KOLE Yin [facility] [address] [place] [address] 04/15/2023 11:06:06 04/15/2023 11:26:33 [id number] Sania Preciado MD [facility] [address] [facility] [address] [address] [place] [address] 06/30/2023 10:58:43 06/30/2023 12:25:44 [id number] Bela Gore MD [facility] [place] [place] [address] [place] [address] 07/28/2023 11:50:39 07/28/2023 14:18:47 Latent autoimmune diabetes mellitus in adult 609235375 E13.9 A1C of 8.2% down form 10% range- improvemen t- however missing important injections prior to meals- encouraged patient to maintain continued injections prior to her meals at 3 units plus correction if needed with her lispro. Recommende d she reconsider splitting her lantus at 5 units in morning and 7 units at bedtime for TDD of 12 units however she does modify based on schedule. She is aware of safe self titration to maintain fasting glucose of 90-130 mg/dL Continue dexcom for continuous monitoring to assure her levels are in range as she is compliant with use. Refer to endocrinol ogy per patient request. Send in [facility] for hypoglycem ia rescue. Dyslipidemia 944772820 E 78.5 Continue statin therapy as LDL in range. Spent up to 25 minutes preparing to see the patient (eg, review of tests), obtaining and/or reviewing separately obtained history, performing a medically appropriat e examinatio n and evaluation , counseling and educating the patient, ordering medication s, tests, along with documentin g clinical informatio n in the electronic health record, independen tly interpreti ng results and communicat ing results to the patient. Patient can be followed by PCP - she/he is aware of my resignatio n and last day of August 14. If needed his/her PCP can refer patient to another endocrinol ogist in the area. All questions /concerns answered and refills necessary at visit today. [id number] Sania Preciado MD 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 [address] [place] [address] 12/04/2023 11:52:41 12/04/2023 12:39:51 Adult health examination [id number] Z00.00 Encouraged fresh fruits and veggies-lo w intakeIncr ease daily water intake-8 bottles/da yEncourage 30 mins of daily exercise-w alks for exerciseCo lonoscopy- had colonoscop y 5 years ago, normal per ptWell woman exams-pap every 3 years (referral given), she plans to call Bj to set up the mammoLDCT- current smoker 1/2 ppd-alread y had flu shot this season Referral needed [id number] Z76.89 [id number] [facility] Primary Care [place] [address] [employer] [facility] [address] [place] [address] 01/18/2024 09:24:12 01/18/2024 09:52:10 Latent autoimmune diabetes mellitus in adult 142701471 E13.9 has CGM, but wants meter for back upa1c 7.4continu e lispro up to 5 units TID AC (usually 3 units)lant us 10 units sc qhseye exam scheduled 02/2024on dandre and statin Thyroid fu nction tests abnormal [id number] R94.6 repeat tsh/free t4may be due to recent stressorsi f persistent ly abnormal, will repeat again in 6 weeks and refer to endocrinol ogy [id number] Sania Preciado MD [facility] Primary Care [address] [facility] [address] 03/01/2024 12:38:56 03/01/2024 12:59:09 Thyroid function tests abnormal 952439027 R94.6 repeat tsh/free t4may be due to recent stressorsi f persistent ly abnormal, will repeat again in 6 weeks and refer to endocrinol ogy 03/01/24: repeat thyroid normal [id number] MASTER Shab[facility] Primary Care [address] [facility] [address] 08/04/2024 10:40:48 08/04/2024 11:26:30 Exposure to Hepatitis C virus 721407260 Z20.5 Will check labs as listed below. Essential hypertension 86974338 I10 104/68Pati ent missed her appt with cardiology due to being sick, will refill meds as listed below. [id number] MASTER [facility]ab[facility] Primary Care [address] [facility] [address] 01/23/2025 09:48:26 01/23/2025 10:31:58 Adult health examination 133836784 Z00.00 Discussed medication compliance and routine follow up.Discuss ed healthy diet and routine exercise.Symone callejaswed vaccine records and made recommenda tions as needed.Enc ouraged annual eye and dental exams, as well as twice yearly dental cleanings. Will check screening labs as listed below. Administra tion of tetanus vaccine 408836024 Z23 Administra tion of pneumococcal vaccine 05700165 Z23 [facility] [id number] L65.9 Screening for malignant neoplasm of respiratory tract 755513331 Z12.2 Z87.891 Health Concerns Section Related Observation LastModified by Organization Detai ls LastModified Time None Recorded Concern Status LastModified by Organization Details LastModified Time None Recorded Advance Directives Directive None Recorded Payers Encounter Date Sequence Insurance Name Policy Number Policy Garnett Covered Member ID Garnett Member ID Guarantor Name 12/04/2023 1 [facility] ON OR AFTER 05/02/21 (MEDICAID REPLACEMENT - HMO) Dara Marti [id number] Dara Marti 01/18/2024 1 [facility] - [facility] ON OR AFTER 21 (MEDICAID REPLACEMENT - HMO) Dara Marti [id number] Dara aMrti 03/01/2024 1 [facility] - [place] ON OR AFTER 21 (MEDICAID REPLACEMENT - HMO) Dara Marti [id number] Dara Marti 08/04/2024 1 [facility] - DOS ON OR AFTER 21 (MEDICAID REPLACEMENT - HMO) Dara Marti [id number] Dara Marti 01/23/2025 1 [facility] - DOS ON OR AFTER 21 (MEDICAID REPLACEMENT - HMO) Dara Marti [id number] Dara Marti Notes Date Note Type Note Provider Name and Address Organization Details Recorded Time 12/04/2023 text/html Pt is here for a nnual physical [facility] [address], [place], [address], [employer] 12/04/2023 12:33:47 01/18/2024 text/html here to f/u, las t labs showed slightly low TSH in December. She has had extreme stressors with her husbands health over the past 4 months. She is fatigued. Blood sugars are steady . Sania Preciado MD [address], [place], [address], [place] 01/18/2024 09:51:08 03/01/2024 text/html here to f/u, las t labs showed slightly low TSH in December. She has had extreme stressors with her husbands health over the past 4 months. She is fatigued. Blood sugars are steady . Sania Preciado MD [address], [place], [address], [employer] 03/20/2024 15:13:37 08/04/2024 text/html Patient is a 59 year old female that presents to the office for follow up. Patient reports she went to [facility] in June, no medication changes at that time. Patient is scheduled to follow up in September. Patient has received the flu shot this year. Patient would like labs drawn for hepatitis C due to her currently going through treatment for hep C and she is his primary caregiver. Patient denies any other concerns at this time including chest pain and shortness of breath, nausea vomiting and diarrhea. [employer] [address], [place], [address], [place] 08/04/2024 11:18:51 01/23/2025 text/html Patient is a 59 year [...] due (schedule 02/09 with OB)Mammogram- due (scheduled 03/29)Colonoscopy- UTDLDCT- ordered (1 ppd, 38 years)Flu- UTDCovid- UTDTdap- orderedShingles- UTDPneumonia- UTD [employer] [address], [place], [address], [place] 01/23/2025 10:21:34 OBGyn Episode No OBEpisode recorded.
--- OUTSIDE RECORDS SUMMARY | 2025-02-01 15:13 | XMS_ITS | Continuity of Care Document ---
Author Organization [employer] Address [address] [place] [address] Phone Care Team Providers Care Senior Control Systems Engineer Name Role Phone Unavailable Unavailable Unavailable Allergies, [...] INTR AMUSCULAR AND/OR SUBCUTANEOUS MEDICATION BY HEALTH OFFICE OUTPT EST 10 MIN OFFICE CONSULT, 15 MIN, 3 KE Y COMPS: PROB FOCUS HX; PROB FOCUS EXAM; STRTFWD Injection, medroxyprogesterone acetate ( Depo-Provera), 150 mg ADMINISTRATION OF ORAL, INTR AMUSCULAR AND/OR SUBCUTANEOUS MEDICATION BY [facility] OFFICE OUTPT EST 25 MIN URINE TEST, BY VISUAL COLOR CO MPARISON METHODS CHYLMD TRACH, DNA, AMP PROBE N.GONORRHOEAE, DNA, AMP PROB Injection, medroxyprogesterone acetate ( Depo-Provera), 150 mg OFFICE/OUTPATIENT VISIT, EST HEMOGLOBIN; GLYCOSYLATED (A1C) 08 OFFICE/OUTPATIENT VISIT, EST GLUCOSE BLOOD TEST INFLUENZA VACCINE, AGE 3YRS+ Injection, medroxyprogesterone acetate ( Depo-Provera), 150 mg URINE TEST, BY VISUAL COLOR CO MPARISON METHODS OFFICE/OUTPATIENT VISIT, EST THYROID STIMULATING HORMONE (TSH) LIPID PANEL BASIC METABOLIC PANEL CALCIUM TOTAL BLOOD COUNT; COMPLETE (CBC), AUTOMATED (HGB, HCT, RBC, WBC AND PLATELET COUNT) OFFICE/OUTPATIENT VISIT, EST HEMOGLOBIN; GLYCOSYLATED (A1C) 08 Injection, medroxyprogesterone acetate ( Depo-Provera), 150 mg N.GONORRHOEAE, DNA, AMP PROB VACCINE ADMINISTRATION, FIRST SHOT Injection, medroxyprogesterone acetate ( Depo-Provera), 150 mg PERIODIC COMPREHENSIVE PREVENTIVE MED RE E/M; ESTABLISHED PATIENT; 40-64 CHYLMD TRACH, DNA, AMP PROBE URINE TEST, BY VISUAL COLOR CO MPARISON METHODS CYTP C/V AUTO THIN LYR PREPJ SCR MNL RES CR PHYS URNLS DIP STICK/TABLET RGNT AUTO W/O CINDY Injection, medroxyprogesterone acetate ( Depo-Provera), 150 mg OFFICE OUTPT EST 25 MIN OFFICE OUTPT EST 10 MIN INFLUENZA VACCINE, AGE 3YRS+ Injection, medroxyprogesterone acetate ( Depo-Provera), 150 mg HEMOGLOBIN; GLYCOSYLATED (A1C) 07 GLUCOSE BLOOD TEST URNLS DIP STICK/TABLET RGNT AUTO W/O CINDY Injection, medroxyprogesterone acetate ( Depo-Provera), 150 mg URINE TEST, BY VISUAL COLOR CO MPARISON METHODS GLUCOSE BLOOD TEST HEMOGLOBIN; GLYCOSYLATED (A1C) 07 OPH MEDICAL XM&EVAL COMPRE NEW PT 1+ VST OFFICE/OUTPATIENT VISIT, EST URNLS DIP STICK/TABLET RGNT AUTO W/O CINDY GLUCOSE BLOOD TEST URINE TEST, BY VISUAL COLOR CO MPARISON METHODS GLUCOSE BLOOD TEST HEMOGLOBIN; GLYCOSYLATED (A1C) 06 INFLUENZA VACCINE, AGE 3YRS+ URNLS DIP STICK/TABLET RGNT AUTO W/O CINDY OFFICE/OUTPATIENT VISIT, EST ALBUMIN; URINE, MICROALBUMIN, QUANTITATI VE CHYLMD TRACH, DNA, AMP PROBE N.GONORRHOEAE, DNA, AMP PROB URINE TEST, BY VISUAL COLOR CO MPARISON METHODS Injection, medroxyprogesterone acetate ( Depo-Provera), 150 mg PERIODIC COMPREHENSIVE PREVENTIVE MED RE E/M; ESTABLISHED PATIENT; 18-39 CYTP C/V AUTO THIN LYR PREPJ SCR SYS PHY S OFFICE O/P EST 5 MIN Injection, medroxyprogesterone acetate ( Depo-Provera), 150 mg URINE TEST, BY VISUAL COLOR CO MPARISON METHODS OFFICE OUTPT EST 10 MIN Injection, medroxyprogesterone acetate ( Depo-Provera), 150 mg Results Test Name Date and Time Measure Units Reference Range Abnormal Flag Status Comments Panel Description: HCG, QL, URINE Final HCG, QL, URINE 3 16:29:00 NEGATIVE NEGATIVE N Final Test performed at [facility] [address] [address]Hgcgxf or: MACHO JIMENEZ [place]) Advance Directives Directive Yes / No Effective [...] EST [facility], [address], [place], [place], [address] , [place] tel: [phone] [facility] depo (chief complaint) Surveillance of other contraceptive method 3 No Information OFFICE/OUTPATI ENT VISIT, EST [facility], [address], [place], [place], [address] , [place] tel: [phone] [facility] depo (chief complaint) Surveillance of other contraceptive methodNeed for prophylactic vaccination and inoculation, influenza 2 No Information OFFICE/OUTPATI ENT VISIT, EST [facility], [address], [place], [place], [address] , [place] tel: [phone] [facility] depo (chief complaint) Surveillance of other contraceptive method 2 No Information OFFICE/OUTPATI ENT VISIT, EST [facility], [address], [place], [place], [address] , [place] tel: [phone] [facility] depo (chief complaint) Surveillance of other contraceptive method 2 No Information OFFICE/OUTPATI ENT VISIT, EST [facility], [address], [place], [place], [address] , [place] tel: [phone] [facility] depo (chief complaint) Surveillance of other contraceptive method 0 No Information OFFICE/OUTPATI ENT VISIT, EST [facility], [address], [place], [place], [address] , [place] tel: [phone] [facility] depo (chief complaint) Surveillance of other contraceptive methodNeed for prophylactic vaccination and inoculation, influenza 0 No Information OFFICE/OUTPATI ENT VISIT, EST [facility], [address], [place], [place], [address] , [place] tel: [phone] [facility] back pain (chief complaint) Abdominal pain, unspecified site 0 Pachalla Betsy. [address], [place], [place], [address], [place]. tel:[phone] OFFICE OUTPT EST 25 MIN [facility], [address], [place], [place], [address] , [place] tel: [phone] [facility] depo (chief complaint) PAP test (chief complaint) Routine gynecological examinationCo ntraceptive surveillance, unspecifiedAb dominal pain, right upper quadrant 0 Pachalla Betsy. [address], [place], [place], [address], [place]. tel:[phone] OFFICE/OUTPATI ENT VISIT, EST [facility], [address], [place], [place], [address] , [place] tel: [phone] [facility] depo (chief complaint) Surveillance of other contraceptive method 0 Chapito Reyes. [address], [place], [place], [address], [place]. tel:[phone] Referring Provider: Amy Uriarte , [address], [place], [address] . tel:[phone] OFFICE/OUTPATI ENT VISIT, EST [facility], [address], [place], [place], [address] , [place] tel: [phone] [facility] depo shot (chief complaint) Surveillance of other contraceptive methodNeed for prophylactic vaccination and inoculation, influenza 9 Chapito Reyes. [address], [place], [place], [address], [place]. tel:[phone] OFFICE OUTPT EST 25 MIN [facility], [address], [place], [place], [address] , [place] tel: [phone] [facility] left breast mass (chief complaint) left eye, left shoulder, arm pressure (chief complaint) Breast screening, unspecifiedSe nsory problems with limbs 9 Racielalla Betsy. [address], [place], [place], [address], [place]. tel:[phone] OFFICE OUTPT EST 10 MIN [facility], [address], [place], [place], [address] [place] [address] , [place] tel: [phone] [facility] breast mass (chief complaint) Breast screening, unspecifiedCo ntraceptive surveillance, unspecified 9 Myrtle Meyer. [address], [place], [place], [address] [place] [address], . tel:[phone] OFFICE OUTPT EST 25 MIN [facility], [address], [place], [place], [address] [place] [address] , [place] tel: [phone] [facility] Left breast pain (chief complaint) back pain (chief complaint) No Information 9 Nidaa Betsy. [address], [place], [place], [address] [place] [address], . tel:[phone] OFFICE OUTPT EST 10 MIN [facility], [address], [place], [place], [address] [place] [address] , tel: [phone] [facility] breast pain (chief complaint) diabetes (chief complaint) Breast screening, unspecifiedDi abetes mellitus without mention of complication, type II or unspecified type, uncontrolled 9 Nidaa Betsy. [address], [place], [address] [place] [address], [place]. tel:[phone] [facility], [address], [place], [place], [address] [place] [address] , tel: [phone] Historic Immunization Location No Information 9 No Information OFFICE OUTPT EST 10 MIN [facility], [address], [place], [address] [place] [address] , [place] tel: [phone] [facility] Surveillance of other contraceptive method 9 Chapito Reyes. [address], [place], [address] [place] [address], . tel:[phone] OFFICE CONSULT, 15 MIN, 3 GUEVARA COMPS: PROB FOCUS HX; PROB FOCUS EXAM; STRTFWD [facility], [address], [place], [place], [address] [place] [address] , tel:[phone] [facility] ECONOMIC PROBLEM 0 5-200 9 Murtic Madina. . OFFICE OUTPT EST 25 MIN [facility], [address], [place], [place], [address] , tel:[phone] [facility] CONTRACEPT SURVEILL NECROUTINE PICU NURSE EXAMINATION 0 3-200 9 Mills-Paul Nealya. [address], [place], [place], [address], . tel:[phone] OFFICE/OUTPATI ENT VISIT, EST [facility], [address], [place], [place], [address] , tel:[phone] [facility] HEADACHEOTHER SPECFD COUNSELINGCON TRACEPT SURVEILL NOS 0 4-200 8 Pachalla Betsy. [address], [place], [place], [address], . tel:[phone] OFFICE/OUTPATI ENT VISIT, EST [facility], [address], [place], [place], [address] , tel: [phone] [facility] ACUTE STRESS REACT NOSDECREASED LIBIDODMII WO CMP UNCNTRLDHEADA LISETTE 0 9-200 8 Pachalla Betsy. [address], [place], [place], [address], [place]. tel:[phone] OFFICE/OUTPATI ENT VISIT, EST [facility], [address], [place], [place], [address] , [place] tel: [phone] [facility] CONTRACEPT SURVEILL NEC 2 1-200 8 Despotovic Trang. [address], [place], [place], [address], [place]. tel:[phone] OFFICE/OUTPATI ENT VISIT, EST [facility], [address], [place], [place], [address] , [place] tel:[phone] [facility] DMII WO CMP UNCNTRLDCONTR ACEPT SURVEILL NOSSCREEN LIPOID DISORDERS 6-200 8 Pachalla Betsy. [address], [place], [place], [address], . tel:[phone] PERIODIC COMPREHENSIVE PREVENTIVE MED REE/M; ESTABLISHED PATIENT; 40-64 [facility], [address], [place], [place], [address] , tel: [phone] [facility] ROUTINE PICU NURSE EXAMINATIONCO NTRACEPT SURVEILL NEC 1-200 8 No Information OFFICE OUTPT EST 25 MIN [facility], [address], [place], [place], [address] , [place] tel: [phone] [facility] HEADACHECONTR ACEPT SURVEILL NEC 3-200 7 Xin Mandi. [address], [place], [place], [address], [place]. tel:[phone] OFFICE OUTPT EST 10 MIN [facility], [address], [place], [place], [address] , tel: [phone] [facility] DMII WO CMP NT ST UNCNTRCONTRAC EPT SURVEILL NOS Jul- 8-200 7 No Information [facility], [address], [place], [place], [address] , [place] tel: [phone] [facility] DMII OTH NT ST UNCNTRLDCONTR ACEPT SURVEILL NOS 0 9-200 7 Pachalla Betsy. [address], [place], [place], [address], . tel:[phone] [facility], [address], [place], [place], [address] , tel: [phone] [facility] DMII WO CMP NT ST UNCNTRHYPERME TROPIA 3-200 7 No Information OFFICE/OUTPATI ENT VISIT, EST [facility], [address], [place], [place], [address] , [place] tel: [phone] [facility] DMII OTH NT ST UNCNTRLDABSEN CE OF MENSTRUATION 2-200 7 Pachalla Betsy. [address], [place], [place], [address], [place]. tel:[phone] OFFICE/OUTPATI ENT VISIT, EST [facility], [address], [place], [place], [address] , [place] tel: [phone] [facility] CONTRACEPT SURVEILL NOSHISTORY OF TOBACCO USEDMII WO CMP NT ST UNCNTR 6 Pachalla Betsy. [address], [place], [place], [address], . tel:[phone] PERIODIC COMPREHENSIVE PREVENTIVE MED REE/M; ESTABLISHED PATIENT; 18-39 [facility], [address], [place], [place], [address] , [place] tel: [phone] [facility] CONTRACEPT SURVEILL NECROUTINE PICU NURSE EXAMINATION 6 No Information OFFICE O/P EST 5 MIN [facility], [address], [place], [place], [address] , [place] tel: [phone] [facility] CONTRACEPT SURVEILL NEC 6 No Information OFFICE OUTPT EST 10 MIN [facility], [address], [place], [place], [address] , [place] tel: [phone] [facility] CONTRACEPT SURVEILL NEC 6 [...] Record Payers Payer name Insurance type Covered republican ID Authoriza tion(s) No Information Social History [...] Goal Influenza Vaccine. Due on due Goal Pneumococcal Vaccine. Due on due Goal Breast exam. Due on 010 due Goal BMP fasting. Due on 012 due Referral Referred To: [address], [address] Ordered: Referral: [facility]. Radiology. Diagnostic testing. Appointment date/timeframe: 05/31/2010 ordered Referral Referred To: [facility] [address] [place], [address] Ordered: Referral: [facility]. Radiology. ordered Referral Referred To: breast center, [facility] Ordered: Referral: [place], [facility]. Surgery. ordered Future Order: Lab Order BASIC ME TABOLIC PANEL W/EGFR ([id number]), Appointment on: , Collected on: , Sent on: Sent Future Order: Lab Order POC GLUC OSE ([id number]), Appointment on: , Collected on: , Sent on: Sent Future Order: Lab Order POC HEMO GLOBIN A1C ([id number]), Appointment on: , Collected on: , Sent [...]
--- OUTSIDE RECORDS SUMMARY | 2025-02-01 15:13 | XMS_ITS | Clinical Summary ---
Author Organization [facility] Address [address] [place] [address] Care Team Providers Care Freezer Operator Name Role Phone Sania Preciado MD Primary Care Provider [phone] Social History Tobacco Use Types Packs/Day Years [...] age to complete this topic Care Teams Freezer Operator Relationship Specialty Start Date End Date Sania Preciado MD [address] [place] [address] [place] [address] PCP - General 11/28/15
== END 2025-02-01 13:51 | disposition home or self-care (01) ==
PROVIDERS: PCP Nurse Practitioner Family; Visit Provider Nurse Practitioner Family
DX: Z12.2 Encounter for screening for malignant neoplasm of respiratory organs (principal); Z87.891 Personal history of nicotine dependence
CPT/HCPCS: 71271

== ENCOUNTER 2025-03-29 14:51 | Outpatient (CLI) | payer OTHER, SELFPAY ==
--- NOTE | ~2025-03-29 | MM_ITS ---
EXAMINATION: MM screening adama BI w gavin HISTORY: Screening TECHNIQUE: Craniocaudal and mediolateral oblique 3-D tomosynthesis images were obtained and synthetic 2-D images were generated. CAD analysis was submitted and interpreted. COMPARISON: Comparison to multiple prior studies sequentially, with oldest reviewed study dated 08/04. BREAST PARENCHYMAL COMPOSITION: Dense: The breasts are heterogeneously dense, which may obscure small masses FINDINGS: There is no evidence of suspicious mass, calcification, or architectural distortion to sugg est malignancy in either breast. There has been no suspicious interval change. IMPRESSION: 1. No mammographic evidence of malignancy. 2. Recommend routine screening mammography in one year. BI-RADS Category 1: Negative Reviewed, dictated and finalized at location A.
--- OUTSIDE RECORDS SUMMARY | 2025-03-29 14:58 | XMS_ITS | Clinical Summary ---
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 Not on file Not on file Last Filed Vital Signs Vital Sign Reading Time Taken Comments Blood Pressure 112/64 12/01/2018 1:03 PM DESK DIRECTOR Pulse 86 12/01/2018 1:03 PM DESK DIRECTOR Temperature 36.6 C (97.9 F) 12/01/2018 1:03 PM DESK DIRECTOR Respiratory Rate 18 12/01/2018 1:03 PM DESK DIRECTOR Oxygen Saturation 98% 12/01/2018 1:03 PM DESK DIRECTOR Inhaled Oxygen Concentration - - Weight 42.6 kg (94 lb) 12/01/2018 1:03 PM DESK DIRECTOR Height 149.9 cm (4' 11) 12/01/2018 1:03 PM DESK DIRECTOR Body Mass Index 18.99 12/01/2018 1:03 PM DESK DIRECTOR Plan of Treatment Health Maintenance Due Date [...] Insurance MEDICAID [employer] Care Teams Primary Therapist Relationship Specialty Start Date End Date Sania Precidao MD [address] [place] [address] PCP - General Family Medicine 09/29/18
--- OUTSIDE RECORDS SUMMARY | 2025-03-29 14:59 | XMS_ITS | Data Portability ---
Author Organization [place] [facility] [employer], Main Office Address [address] [place] [address] Assessment No assessment recorded. Plan of Treatment Reminders Order Date Submit Date Provider Last Modified By Organization Details Last Modified Time Details Appointments Follow Up 30 2024 01:30P Blair Guillory NP Not available Not available Not available Lab Hepatitis C IgG Ab, qual, serum 2023 024 [facility] ([facility]), [address] [place], [address], 08/05/2024 19:29:42 TSH, serum or plasma 2023 024 [facility] ([facility]), [address] [place], [address], 01/19/2024 17:44:11 T4, free, serum 2023 024 [facility] ([facility]), [address] [place], [address], 01/19/2024 17:25:59 lipid panel, serum [address] ([facility] Scheduling), [address] [place], [address], 12/04/2023 14:14:48 TSH, serum, reflex free T4 [address] ([facility]), [address] [place], [address], 12/04/2023 14:15:18 HbA1c (hemoglob in A1c), blood [address] ([facility]uling), [address] [place], [address], 12/04/2023 14:15:47 CBC [address] ([facility] Scheduling), [address] [place], [address], 12/04/2023 14:16:19 BMP, serum or plasma [address] ([facility] Call Scheduling), [address] [place], [address], 12/04/2023 14:18:38 hepatic function panel, serum [address] ([facility]), [address] [place], [address], 12/04/2023 14:19:18 hepatitis C virus Ab, serum [address] ([facility] Sched[facility]), [address] [place], [address], 12/04/2023 14:20:38 Referral dermatolo gist referral - Please call patient to schedule an appointme nt. Thank you. 2024 025 [facility], [facility] [place], [address], 01/23/2025 11:44:12 gynecolog ist referral - Please call patient to schedule appointme nt. 2023 024 [email or web address] Taylor Meraz MD, [address], [address], [place], [address], 01/05/2024 09:08:52 Procedures None recorded. Surgeries None recorded. Imaging LDCT, chest, for lung cancer screening 2024 025 [facility], [address], [place], [address], 02/02/2025 09:33:26 Medication Orders lisinopri l 2.5 mg tablet 2023 024 [facility], [address] [facility], [place], [address], 08/04/2024 11:09:36 Patient TargetsNo targets recorded. Patient InstructionsNo instructions recorded. Reason for Referral Handle Bender Referral for Re ferral needed pt is needing pap Please call patient to schedule appointment. Referring Physician: Reuben Hawkins, Family Medicine, Encounter Date: 12/04/2023 Branch Manager Trainee Referral for A lopecia Please call patient to schedule an appointment. Thank you. Referring Physician: Opal Guillory Family Medicine, Encounter Date: 01/23/2025 Results Created Date Observation Date Name Description Value Unit Range Abnormal Flag Note LastModifiedBy Organization Detail LastModifiedTime 01/18/20 24 01/19/2024 T4 FREE free T4 1.18 NG/dL 0.78-2 .19 Not Available [facility] (Lab) [address] [place], [address], 01/19/2024 17:25:59 01/18/20 24 01/19/2024 TSH thyroid-stim ulating hormone 1.110 uIU/m L 0.465- 4.680 Not Available [facility] (Lab) [address] [place], [address], 01/19/2024 17:44:11 01/29/20 24 01/28/2024 MAMMO , martha fajardo, digit al, bilat eral No observ ation record ed. [email or web address] [facility] [address], [place], [address], 03/18/2024 13:51:20 02/03/20 25 02/01/2025 LDCT, chest , for lung cance r martha fajardo No observ ation record ed. [facility] [address], [place], [address], 02/02/2025 10:08:26 Result Notes None recorded. Problems Name Problem SNOMED Code Status Onset Date Resolution Date Notes Provider Name and Address Organization Details Recorded Time Tobacco user 803135291 Active Not Available [facility] 3 00:57:51 Amenorrhea 18824463 Active Not Available [facility] 3 00:57:51 Acquired trigger finger 2386827 Active Not Available [facility] 3 00:57:51 Increased frequency of urination 057001953 Active Not Available [facility] 3 00:57:51 Anti-nucle ar factor detected 976344620 Active 2021 Not Available [facility] 3 00:57:51 Thyroid hormone tests outside reference range 109250659 Active Not Available [facility] 3 00:57:51 Liver function tests outside reference range 297163215 Active Not Available [facility] 3 00:57:51 Lateral epicondyli tis 109956087 Active Not Available [facility] 3 00:57:51 Abdominal pain 97466993 Active Not Available [facility] 3 00:57:51 Malaise and fatigue 270508784 Active Not Available [facility] 3 00:57:51 Toothache 85090036 Active Not Available [facility] 3 00:57:51 Right lower quadrant pain 588836789 Completed Not Available [facility] 3 00:53:43 Dyslipidem ia 033360098 Active 2021 Not Available [facility] 3 00:57:51 Pelvic congestion syndrome 85959352 Active Not Available [facility] 3 00:57:51 Onychomyco sis 153181263 Active Not Available [facility] 3 00:57:51 Latent autoimmune diabetes mellitus in adult 034854955 Active 2021 Not Available [facility] 3 00:57:51 Infection of tooth 538486132 Active Not Available [facility] 3 00:57:51 Uncontroll ed type 2 diabetes mellitus 672438582 Active 2021 Not Available [facility] 3 00:57:51 Pain of hip region 86145029 Active Not Available [facility] 3 00:57:51 Cough 61575169 Active Not Available [facility] 3 00:57:51 Hyperlipid emia 80676060 Active Not Available [facility] 3 00:57:51 Urinary tract infectious disease 27656721 Active Not Available [facility] 3 00:57:51 Dyspareuni a 41184350 Active Not Available [facility] 3 00:57:51 Diabetes mellitus 15329260 Active Not Available [facility] 3 00:57:51 Cyst of ovary 96466308 Active Not Available [facility] 3 00:57:51 Neck pain 19655388 Active Not Available [facility] 3 00:57:51 Fatigue 04048011 Active Not Available [facility] 3 00:57:51 Bacterial infectious disease 92515250 Completed Not Available [facility] 3 00:53:44 Type 2 diabetes mellitus 99612612 Active 2022 Not Available [facility] 3 00:57:51 Sleep related bruxism 899963099 Active 2022 Not Available [facility] 3 00:57:51 Insomnia 534520636 Active 2022 Sania Preciado MD [address], [place] [address], [place], [address] , [facility] [employer] [facility] 3 15:23:51 Thyroid function tests abnormal 104393118 Active 2023 Sania Preciado MD [address] [place] [address], [place], [address] , [facility] [employer] [facility] 4 09:45:42 Essential hypertensi on 22435287 Active 2023 [employer] [address] [place] [address], [place], [address] , [facility] [employer] [facility] 4 11:08:09 [facility] 69328372 Active 2024 MA[employer] [address], [address], [place], [address] , [facility] [employer] [facility] 5 10:16:32 Problem Notes None recorded. 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 Procedure completed Not Available [facility] 12/31/2022 00:47:57 020 Most Recent Mammogram completed Not Available [facility] 12/31/2022 00:47:55 016 colonoscopy completed Not Available [facility] 12/31/2022 00:47:57 Gastrointestinal Surgery completed Not Available [facility] 12/31/2022 00:47:57 Tubal Ligation completed Not Available [facility] 12/31/2022 00:47:57 delivery completed Not Available [facility] 12/31/2022 00:47:57 Imaging Results None recorded. Procedure Notes None recorded. Medical Equipment None Reported. Allergies No known drug allergies Medications Name Sig Start Date Stop Date Status Note LastModified by Organization Details LastModified Time Prescript ion - Renewal active Not Available Not Available Not Available Dexcom G6 CGM active Not Available Not [...] Not Available atorvasta tin 40 mg tablet Take 1 tablet by mouth once daily active Not Available Not Available No t [...] e 50 mcg/actua tion nasal spray,tari pension [place] 1 spray every day by intranas al [...] Available TRUEplus Pen Needle 32 gauge x 32 USE DIRECTED INJECT INSULIN UP TO 4 [...] Not Available No t Available Dexcom G7 Napper Grinder USE DIRECTED active Not Available Not Available [...] Updated DateTime 4 152.4 cm 19.7 kg/m2 85004.8 3 g 97.2 [degF] 78 /min 98 % 98 % 138 mm[Hg] 70 mm[Hg] Stella Almeida RN [place] [facility] [employer] 4 12:00:09 Date Recorded Body height Body mass index (BMI) Body weight Body temperature Oxygen saturation Oxygen saturation in Arterial blood by Pulse oximetry Heart rate Systolic blood pressure Diastolic blood pressure Provider Name and Address Organization Details Last Updated DateTime 4 152.4 cm 19.5 kg/m2 32081.2 4 g 97.2 [degF] 98 % 98 % 82 /min 102 mm[Hg] 64 mm[Hg] Tessa Carreon RN [facility] [employer] [facility] 4 09:30:00 Date Recorded Body height Body mass index (BMI) Body weight Heart rate Oxygen saturation Oxygen saturation in Arterial blood by Pulse oximetry Body temperature Systolic blood pressure Diastolic blood pressure Provider Name and Address Organization Details Last Updated DateTime 5 152.4 cm 20.5 kg/m2 26126.2 g 72 /min 98 % 98 % 97.6 [degF] 112 mm[Hg] 60 mm[Hg] Judi Kemp MA [facility] [employer] [facility] 5 09:58:13 Date Recorded Body height Body mass index (BMI) Body weight Body temperature Heart rate Oxygen saturation Oxygen saturation in Arterial blood by Pulse oximetry Systolic blood pressure Diastolic blood pressure Provider Name and Address Organization Details Last Updated DateTime 4 152.4 cm 18.7 kg/m2 09162.8 7 g 98 [degF] 74 /min 96 % 96 % 98 mm[Hg] 60 mm[Hg] Tessa Carreon RN [facility] [employer] [facility] 4 12:43:58 Date Recorded Body height Body mass index (BMI) Body weight Body temperature Heart rate Oxygen saturation Oxygen saturation in Arterial blood by Pulse oximetry Systolic blood pressure Diastolic blood pressure Provider Name and Address Organization Details Last Updated DateTime 4 152.4 cm 19.9 kg/m2 47440.4 2 g 98 [degF] 88 /min 97 % 97 % 104 mm[Hg] 68 mm[Hg] Tessa Carreon RN [facility] [employer] [facility] 4 10:53:57 Social History Question Answer Notes LastModified by Organizat ion Details LastModified Time Tobacco Smoking Status Current Every Day Smoker Not Available [employer] 12/31/2022 00:47:16 What Is Your Level Of Caffeine Consumption? Moderate [id number] Information not available 12/31/2022 In The 14 Days Before Symptom Onset, Have You Had Close Contact With A Laboratory-confi rmed COVID-19 While That Case Was Ill? No [id number] Information not available 12/31/2022 In The 14 Days Before Symptom Onset, Have You Had Close Contact With A Person Who Is Under Investigation For COVID-19 While That Person Was Ill? No [id number] Information not available 12/31/2022 What Type Of Diet Are You Following? REGULAR [email or web address] Information not available 01/26/2023 Which Illicit Or Recreational Drugs Have You Used? No [id number] Information not available 12/31/2022 Have There Been [...] Age Did You Start Smoking Tobacco? 22 Information not available 01/23/2025 Are You Passively Exposed To Smoke? Yes Information not available 01/23/2025 Are There Any Smokers In Your House? No Information not available 01/23/2025 How Much Tobacco Do You Smoke? 1 PPD [id number] Information not available 12/31/2022 Do You Participate In Social Media? Yes [email or web address] Information not available 02/17/2023 Do You Use Sunscreen Routinely? No Information not available 01/23/2025 Has Tobacco Cessation Counseling Been Provided? No Information not available 02/17/2023 How Many Years Have You Smoked Tobacco? 38 [email or web address] Information not available 01/23/2025 Have You Recently Traveled Abroad? No Information not available 01/23/2025 Are You Currently In School? No Information not available 01/23/2025 Do You Have Any Dietary Restrictions? No [email or web address] Information not available 01/26/2023 Sex: Unknown Functional Status Question Answer Note LastModified by Organizat ion Details LastModified Time Do you use any illicit or recreational drugs? No [email or web address] Information not available 02/17/2023 What is your level of alcohol consumption? None [id number] Information not available 12/31/2022 Are you currently employed? No Information not available 01/23/2025 What is your exercise level? Occasional [id number] Information not available 12/31/2022 Mental Status Question Answer Note LastModified by Organization D etails LastModified Time Do you feel stressed (tense, restless, nervous, or anxious, or unable to sleep at night)? [id number] [email or web address] Information not available 02/17/2023 Family History Relationship Description Onset Age of this Age Resolved Age Notes LastModified by Organization Details LastModified Time Father Hypertensive disorder [id number] Not available 12/31/2022 00:48:00 Father Diabetes mellitus [id number].999 [id number] Not available 12/31/2022 00:48:00 Father Dementia [id number].796 [id number] Not available 12/31/2022 00:48:00 Mother Diabetes mellitus MIGRATION.470 [id number] Not available 12/31/2022 00:48:00 Sister Malignant tumor of breast MIGRATION.399 [id number] Not available 12/31/2022 00:48:00 Medical History Condition [...] Organization Details Recorded Time Tdap 5 completed CINTHIA Mitchell, [facility] [employer] [facility] 01/23/2025 10:47:43 Influenza, split virus, quadrivalent, PF 3 completed CINTHIA Nicholson, [facility] 07/29/2023 15:32:25 COVID-19, mRNA, LNP-S, PF, 30 mcg/0.3 mL dose 1 completed Not Available [facility] 07/09/2023 00:57:52 COVID-19, mRNA, LNP-S, PF, 30 mcg/0.3 mL dose 1 completed Not Available [facility] 07/09/2023 00:57:52 COVID-19, mRNA, LNP-S, PF, 30 mcg/0.3 mL dose 1 completed Not Available [facility] 07/09/2023 00:57:52 Hep B, adult 3 completed Not Available [facility] 07/09/2023 00:57:52 Influenza, split virus, quadrivalent, PF 9 completed Not Available [facility] 07/09/2023 00:57:53 Influenza, split virus, quadrivalent, PF 8 completed Not Available [facility] 07/09/2023 00:57:53 pneumococcal polysaccharide PPV23 5 completed Not Available [facility] 07/09/2023 00:57:52 Influenza, split virus, quadrivalent, PF 2 completed Not Available [facility] 07/09/2023 00:57:52 Influenza, split virus, quadrivalent, PF 1 completed Not Available [facility] 07/09/2023 00:57:53 Tdap 5 completed Not Available [facility] 07/09/2023 00:57:52 Influenza, split virus, quadrivalent, PF 4 completed Not Available [facility] 07/09/2023 00:57:53 Influenza, split virus, quadrivalent, PF 0 completed Not Available [facility] 07/09/2023 00:57:53 Influenza, split virus, quadrivalent, PF 5 completed Not Available [facility] 07/09/2023 00:57:53 Influenza, split virus, quadrivalent, PF 7 completed Not Available [facility] 07/09/2023 00:57:53 Influenza, split virus, quadrivalent, preservative 6 completed Not Available [facility] 07/09/2023 00:57:52 Influenza, split virus, trivalent, PF 3 completed Not Available [facility] 07/09/2023 00:57:52 Past Encounters Encounter ID Performer Location Encounter Start Date Encounter Closed Date Diagnosis/Indication Diagnosis SNOMED-CT Code Diagnosis ICD10 Code Diagnosis Note [id number] [facility] _ATHENA_M IGRATION_ DEFAULT_1 _1 , 01/16/2021 00:00:00 01/16/2021 19:50:12 [id number] Sania Preciado MD [facility] Primary [facility] [place] [address] [place] [address] 02/28/2021 00:00:00 02/28/2021 09:21:11 [id number] Bela Gore MD [facility] [place] [address] [place] [address] 03/18/2021 00:00:00 03/18/2021 15:19:31 [id number] Sania Preciado MD [facility] Primary Care [place] [address] [place] [address] 07/22/2021 00:00:00 07/22/2021 13:24:23 [id number] Bela Gore MD [facility] [place] [address] [place] [address] 07/29/2021 00:00:00 07/29/2021 16:08:13 [id number] Sania Preciado MD [facility] Primary Care [place] [address] [place] [address] 08/13/2021 00:00:00 08/13/2021 18:34:54 [id number] KOLE Yin [facility] Primary Care [place] [address] [place] [address] 09/09/2021 00:00:00 09/09/2021 16:36:11 [id number] Sania Preciado MD [facility] Primary Care [place] [address] [place] [address] 01/15/2022 00:00:00 01/15/2022 11:18:13 [id number] Bela Gore MD [facility] [place] [address] [place] [address] 01/27/2022 00:00:00 01/27/2022 14:52:17 [id number] Sania Preciado MD [facility] Primary Care [facility] [address] [facility] [address] [place] [address] 03/18/2022 00:00:00 04/01/2022 08:17:26 [id number] Sania Preciado MD [facility] [place] [facility] [address] [facility] [address] [place] [address] 04/28/2022 00:00:00 04/28/2022 19:35:26 [id number] Sania Preciado MD [facility] Primary Care [address] [place] [address] 04/29/2022 00:00:00 05/01/2022 08:44:03 [id number] Bela Gore MD [facility] [place] [address] [place] [address] 05/09/2022 00:00:00 05/09/2022 14:09:20 [id number] Sania Preciado MD [facility] Primary [facility] [address] [facility] [address] [place] [address] 06/25/2022 00:00:00 06/30/2022 17:54:59 [id number] Sania Preciado MD [facility] [address] [facility] [address] [place] [address] 07/29/2022 00:00:00 07/29/2022 18:25:01 [id number] [facility] [place] [address] [place] [address] 08/22/2022 00:00:00 08/22/2022 15:39:09 [id number] KOLE Yin [facility] Primary Care [place] [address] [facility] [address] [place] [address] 11/11/2022 00:00:00 11/11/2022 16:22:05 [id number] Bela Gore MD [facility] [place] [address] [place] [address] 01/05/2023 14:12:02 01/05/2023 14:56:50 Latent autoimmune diabetes mellitus in adult 708174463 E13.9 A1C not completed was under 7% [...] to meals. Continue with dexcom sensor. Dyslipidemia 709527427 E 78.5 Send for lipid and thyroid panel to monitor. Anti-nucle ar factor detected 988542318 R76.8 Refer to rheumatolo gy as she has continued bilateral knee/hip/a nkle pain- had x rays done at [place] needs a follow up to review with [...] she chooses to go outside of the [facility] system to obtain labwork she was [...] in her case. She voiced understand ing. [id number] Sania Preciado MD [facility] Primary Care [facility] [place] [address] [facility] [address] [place] [address] 01/26/2023 14:52:50 01/26/2023 15:31:24 Type 2 diabetes mellitus 62092245 E11.[address] Goreweight stablef/u in 6 months or sooner if needed [id number] KOLE Yin [facility] Primary Care [facility] [place] [address] [facility] 140 [place] [address] 02/17/2023 11:49:12 02/17/2023 14:12:25 Sleep related bruxism 408018330 G47.63 Advised she try wearing dental guard at night. Will also add on muscle relaxer for jaw pain.I have also advised she f/u with dentist, has not been in 4 years. [id number] Sania Preciado MD [facility] [place] [address] [place] [address] [address] [place] [address] 04/15/2023 11:06:06 04/15/2023 11:26:33 [id number] Sania Preciado MD [facility] Primary Care [facility] [place] [address] [place] [address] [address] [place] [address] 06/30/2023 10:58:43 06/30/2023 12:25:44 [id number] Bela Gore MD [facility] [place] [address] [place] [address] 07/28/2023 11:50:39 07/28/2023 14:18:47 Latent autoimmune diabetes mellitus in adult 073909781 E13.9 A1C of 8.2% down form 10% [...] in [place] for hypoglycem ia rescue. Dyslipidemia 801513359 E 78.5 Continue statin therapy as LDL [...] answered and refills necessary at visit today. 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 /u in 4 weeks or sooner if needed Administra tion of influenza vaccine 11296946 Z23 [id number] MASTER Kc [facility] Primary Care [facility] [address] [place] [address] 12/04/2023 11:52:41 12/04/2023 12:39:51 Adult health examination 974624247 Z00.00 Encouraged fresh fruits and veggies-lo w intakeIncr ease daily water intake-8 bottles/da yEncourage 30 mins of daily exercise-w alks for exerciseCo lonoscopy- had colonoscop y 5 years ago, normal per ptWell woman exams-pap every 3 years (referral given), she plans to call Bj to set up the mammoLDCT- current smoker 1/2 ppd-alread y had flu shot this season Referral needed [id number] Z76.89 [id number] Sania Preciado MD [facility] Primary Care [address] [place] [address] 01/18/2024 09:24:12 01/18/2024 09:52:10 Latent autoimmune diabetes mellitus in adult 493974960 E13.9 has CGM, but wants meter for back upa1c 7.4continu e lispro up to 5 units TID AC (usually 3 units)lant us 10 units sc qhseye exam scheduled 02/2024on dandre and statin Thyroid fu nction tests abnormal [id number] R94.6 repeat tsh/free t4may be due to recent stressorsi f persistent ly abnormal, will repeat again in 6 weeks and refer to endocrinol ogy [id number] Sania Preciado MD [facility] [address] [place] [address] 03/01/2024 12:38:56 03/01/2024 12:59:09 Thyroid function tests abnormal [id number] R94.6 repeat tsh/free t4may be due to recent stressorsi f persistent ly abnormal, will repeat again in 6 weeks and refer to endocrinol ogy 03/01/24: repeat thyroid normal [id number] MASTER Shabazz [facility] Primary [facility] [address] [place] [address] 08/04/2024 10:40:48 08/04/2024 11:26:30 Exposure to Hepatitis C virus [id number] Z20.5 Will check labs as listed below. Essential hypertension [id number] I10 104/68Pati ent missed her appt with cardiology due to being sick, will refill meds as listed below. [id number] MASTER Shabazz [facility] [address] [place] [address] 01/23/2025 09:48:26 01/23/2025 10:31:58 Adult health examination [id number] Z00.00 Discussed medication compliance and routine follow up.Discuss ed healthy diet and routine exercise.Symone callejaswed vaccine records and made recommenda tions as needed.Enc ouraged annual eye and dental exams, as well as twice yearly dental cleanings. Will check screening labs as listed below. Administra tion of tetanus vaccine [id number] Z23 Administra tion of pneumococcal vaccine 06776706 Z23 [facility] [id number] L65.9 Screening for malignant neoplasm of respiratory tract 010204782 Z12.2 Z87.891 Health Concerns Section Related Observation LastModified by Organization Detai ls LastModified Time None Recorded Concern Status LastModified by Organization Details LastModified Time None Recorded Advance Directives Directive None Recorded Payers Encounter Date Sequence Insurance Name Policy Number Policy Garnett Covered Member ID Garnett Member ID Guarantor Name 12/04/[address] [facility] ON OR AFTER 05/02/21 (MEDICAID REPLACEMENT - HMO) Dara Marti [id number] Dara Marti 01/18/[address] [facility] ON OR AFTER 05/02/21 (MEDICAID REPLACEMENT - HMO) Dara Marti [id number] Dara Marti 03/01/[address] [facility] ON OR AFTER 05/02/21 (MEDICAID REPLACEMENT - HMO) Dara Marti [id number] Dara Marti 08/04/[address] [facility] ON OR AFTER 05/02/21 (MEDICAID REPLACEMENT - HMO) Dara Marti [id number] Dara Marti 01/23/[address] [facility] ON OR AFTER 05/02/21 (MEDICAID REPLACEMENT - HMO) Dara Marti [id number] Dara Marti Notes Date Note Type Note Provider Name and Address Organization Details Recorded Time 12/04/2023 text/html Pt is here for a nnual physical MASTER K[facility] [address] [facility], [facility] [address], [place], [address], [facility] [employer] [facility] 12/04/2023 12:33:47 01/18/2024 text/html here to f/u, las t labs showed slightly low TSH in December. She has had extreme stressors with her husbands health over the past 4 months. She is fatigued. Blood sugars are steady. Sania Preciado MD [address], [place], [address], [employer] [facility] [employer] [facility] 01/18/2024 09:51:08 03/01/2024 text/html here to f/u, las t labs showed slightly low TSH in December. She has had extreme stressors with her husbands health over the past 4 months. She is fatigued. Blood sugars are steady. Sania Preciado MD [address], [place], [address], [employer] 03/20/2024 15:13:37 08/04/2024 text/html Patient is a 59 year old female that presents to the office for follow up. Patient reports she went to [facility] in June, no medication changes at that [...] nausea vomiting and diarrhea. MASTER Shabazz [address] [facility], [place], [address], [employer] [facility] [employer] 08/04/2024 11:18:51 01/23/2025 text/html Patient is a [...] 40 years)Flu- UTDCovid- UTDTdap- orderedShingles- UTDPneumonia- UTD VIPIN [facility]azz[facility] [address] [facility], [facility] [address], [place], [address], [facility] [employer] [facility] 01/23/2025 10:21:34 OBGyn Episode No OBEpisode recorded.
== END 2025-03-29 14:52 | disposition home or self-care (01) ==
LOC: ANHIMG 14:53
PROVIDERS: PCP Nurse Practitioner Family; Visit Provider Nurse Practitioner Family
DX: Z12.31 Encounter for screening mammogram for malignant neoplasm of breast (principal)
CPT/HCPCS: 77063; 77067